=== PATIENT | female | born 1945 | race Caucasian/White ===

== ENCOUNTER 2016-08-11 02:10 | Inpatient (IN) ==
[2016-08-11] MEDS ORDERED: *HR* Morphine 2 MG/ML SYRINGE IVP PRN (05:00)
[2016-08-11] MEDS ORDERED: Naloxone 0.4 MG/ML INJ IVP PRN (05:00)
[2016-08-11] MEDS ORDERED: Ondansetron 4 MG/2 ML VIAL IVP PRN (05:00)
[2016-08-11] MEDS ORDERED: Acetaminophen 325 MG TABLET PO PRN (05:00)
--- NOTE | 2016-08-11 05:05 | Internal Med History&Physical ---
<Adrián Heath - Last Filed: 08/11/16 06:20> Date of Encounter: 08/11/16 Time of Encounter: 04:30 Assessment and Plan (1) Closed right hip fracture Current visit: No Status: Acute - Right hip CT showed acute mildly displaced right subcapital femur fracture. - Orthopedic surgery consult and appreciate further evaluation and intervention. - Per Dr. Phillips, plan to have surgery tomorrow. - Pain control with prn pain medications. - NPO after midnight. Qualifiers: Encounter type: initial encounter Qualified Code(s): S72.001A - Fracture of unspecified part of neck of right femur, initial encounter for closed fracture (2) UTI (urinary tract infection) Current visit: Yes Status: Acute - UA positive for nitrite, leukocyte esterase, WBC and bacteria. Urine culture pending. - Given the leukocytosis and possible upcoming surgery, will treat with IV ceftriaxone and later de-escalate based on culture result. Qualifiers: Urinary tract infection type: site unspecified Hematuria presence: without hematuria Qualified Code(s): N39.0 - Urinary tract infection, site not specified (3) Preoperative cardiovascular examination Current visit: Yes Status: Acute - Patient has no active cardiac conditions at this time and no significant ischemic change on EKG today. - Patients functional capacity is at least 4 METs as patient is able to perform ADLs and walk long distance without problem before the fall. - Patient does have clinical risk factors including history of CAD, diastolic CHF, CVA and DM. - Patient is considered as at least moderate risk for intermediate-risk surgery. (4) Hypokalemia Current visit: No Status: Acute - K at 3.1 in [facility]. - Will check magnesium. - Will give 40 meq of KCl PO for supplement. - Continue to monitor. (5) A-fib Current visit: Yes Status: Chronic - Currently in sinus rhythm with rate of 80s. - Continue Cardizem for rate control. - Will hold Xarelto for planned surgery tomorrow. Qualifiers: Atrial fibrillation type: unspecified Qualified Code(s): I48.91 - Unspecified atrial fibrillation (6) Diabetes Current visit: No Status: Chronic - Insulin sliding scale with routine glucose monitoring. 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 Qualifiers: Hypertension type: essential hypertension Qualified Code(s): I10 - Essential (primary) hypertension (8) Diastolic CHF Current visit: Yes Status: Chronic - LVEF 65-70% with moderate diastolic dysfunction per echo on 12/03/14. - Continue home dose Lasix. Qualifiers: Congestive heart failure chronicity: chronic Qualified Code(s): I50.32 - Chronic diastolic (congestive) heart failure Internal Medicine - H&P: HPI Chief complaint: Right hip pain Admitted From: Emergency Dept ([facility]) Plans for Post Hospital Care: Transfer Inp Rehab Fac History of present illness: Ms. 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 Patient presented to [facility] with complaint of right hip pain after a fall at 9:15 pm last night. Patient reports she tripped because of her pants are too long. Patient denies lightheadedness, loss of consciousness, chest pain/discomfort or hitting her head. Patient reports constant right hip pain since the fall and it' s aggravated by movement. Patient is unable to stand or bear weight. Patient was active before the fall as she can walk long distance and perform daily activities of living without problem. Patient is full code. In [facility] ED, patient is noted to have leukocytosis of 16.7. Right hip CT showed acute mildly displaced right subcapital femur fracture without displacement. ED physician discussed the case with Dr. Phillips of [facility] who recommends transfer to [facility] for further evaluation and management. Past Med Surg Social Fam HX - Past Medical History Medical history: arthritis, asthma, atrial fibrillation, cancer, CHF, COPD, coronary artery disease, CVA, diabetes, GERD, hyperlipidemia, hypertension, renal disease, thyroid disease Psychiatric history: anxiety, depression - Past Surgical History Surgical History: cataract, colostomy, sinus surgery, thyroidectomy - Social History Smoking Status: Never smoker Smokeless Tobacco Status: No Alcohol use: none Drug use: none - Family History Brother Adopted: No Family Member Ethnicity: Non- Living Status: Hx Family Cardiac Disorders: Yes Mother Living Status: Hx Family Cardiac Disorders: Yes (HTN) Hx Family Endocrine Disorder: Yes (DM) Internal Medicine - H&P: Meds Ferrous Sulfate 325 mg PO DAILY 11/15/14 [History] Furosemide [Lasix] 20 mg PO DAILY 11/15/14 [History] Insulin NPH Hum/Reg Insulin Hm [Novolin 70-30 100 Unit/ml Vial] 20 unit SQ BID PRN 11/15/14 [History] Montelukast Sodium 10 mg PO HS 11/15/14 [History] Potassium Chloride 10 meq PO BID 11/15/14 [History] Atenolol [Tenormin] 25 mg PO BID #60 tablet 12/06/14 [Rx] Diltiazem CD (24hr) [Cardizem CD] 120 mg PO DAILY 06/02/15 [History] Tiotropium Una [Spiriva Respimat] 2.5 mg IH DAILY 06/02/15 [History] Fluticasone Propionate Nasal [Flonase] 1 spray NS BID 04/14/16 [History] Gabapentin [Neurontin] 600 mg PO BID 04/14/16 [History] Levothyroxine [Synthroid] 88 mcg PO DAILY 04/14/16 [History] Pravastatin Sodium [Pravachol] 20 mg PO DAILY 04/14/16 [History] Ergocalciferol (VITAMIN D2) [Vitamin D2] 50,000 unit PO QWEEK 07/15/16 [History] Meloxicam 15 mg PO DAILY 07/15/16 [History] Rivaroxaban [Xarelto] 20 mg PO DAILY 07/15/16 [History] Amitriptyline [Elavil] 25 mg PO HS 08/11/16 [History] Clopidogrel [Plavix] 75 mg PO DAILY 08/11/16 [History] Allergies No Known Allergies Allergy (Verified 07/15/16 11:09) All Systems PM: A 10-system review of systems was performed and is negative for pertinent findings except as documented above in the HPI. - Constitutional Constitutional: no anorexia, no chills, no fever(s), no weight gain, no weight loss - EENT Eyes: no change in vision Ears: no decreased hearing Nose, mouth and throat: no dysphagia, no odynophagia - Cardiovascular Cardiovascular ROS IM: palpitations (occasionally, from A-fib), no chest pain, no diaphoresis, no syncope - Respiratory Respiratory: dyspnea (chronic, from COPD), no cough - Gastrointestinal Gastrointestinal: no abdominal pain, no diarrhea, no hematochezia, no melena, no nausea, no vomiting - Genitourinary Genitourinary: no difficulty urinating, no dysuria, no hematuria - Musculoskeletal Musculoskeletal ROS IM: as per HPI, arthralgias (left shoulder arthritis and right hip pain) - Integumentary Integumentary IM: no pruritus, no rash - Neurological Neurological ROS: numbness (Chronic bilateral feet.), no focal weakness - Hematologic/Lymphatic Hematologic/Lymphatic: no easy bleeding, no easy bruising - Constitutional Vitals: Temp Pulse Resp BP Pulse Ox 98.0 F 86 16 180/101 96 08/11/16 03:34 08/11/16 03:34 08/11/16 03:34 08/11/16 03:34 08/11/16 03:34 General appearance: Present: cooperative, A&O X 3, no acute distress, answers questions appropriately - Head Head exam: Present: atraumatic, normocephalic - Eye Eye exam: Present: EOMI, PERRL, conjuntiva pink, sclera anicteric - Neck Neck exam general surgery: Present: supple, trachea midline. Absent: lymphadenopathy - Respiratory Respiratory exam: Present: CTAB. Absent: accessory muscle use, rales, rhonchi, wheezes - Cardiovascular Cardiovascular exam: Present: RRR, +S1, +S2. Absent: diastolic murmur, gallop, rubs, systolic murmur - GI/Abdominal GI/Abdominal exam: Present: normal bowel sounds, soft, no peritoneal signs. Absent: distended, tenderness - Extremities Exam Extremities exam: Present: warm, radial pulses palpable and symetrical. Absent : calf tenderness, cyanotic, pedal edema Additional comments: Right hip tenderness to palpation and move. - Neurological Exam Neurological exam: Present: CN II-XII intact, oriented X3, no focal deficits. Absent: pronater drift, facial droop, speech deficit - Skin Skin exam: Present: dry, erythema (Right epigastric area, patient states it's a tick bite 3 days ago.), intact, warm Internal Med - H&P Results - EKG Data -: EKG Interpreted by Myself EKG shows normal: sinus rhythm Rate: normal - EKG Data Prior EKG available for review: yes When compared to previous EKG: there is no significant change <Jordon Holly - Last Filed: 08/11/16 08:31> Date of Encounter: 08/11/16 Internal Medicine - H&P: HPI History of present illness: Ms. Celaya is a 71 year old female All Systems PM: A 10-system review of systems was performed and is negative for pertinent findings except as documented above in the HPI. - Constitutional Vitals: Temp Pulse Resp BP Pulse Ox 97.9 F 73 14 173/88 96 08/11/16 06:52 08/11/16 06:52 08/11/16 06:52 08/11/16 06:52 08/11/16 06:52 - Attending Attestation I performed history and physical examination of the patient and discussed management with the Resident. I reviewed the Residents note and agree with documented findings and plan of care. 71 Y/F with h/o COPD, DM, diastolic CHF, CAD, CVA, A fib on xarelto tripped and had a fall last night and reports pain in the right hip (constant and worse with movement). She was evaluated in the ER at [facility] and was noted to have displaced right hip fracture. O/E: No acute distress at the time of my evaluation. Cardiac regular rate and rhythm. Lungs clear to auscultation. Right hip tenderness present. EKG personally reviewed by me shows sinus rhythm, with no acute ST-T changes. No significant change from the EKG from june 2016. UA is positive for nitrite and leucocyte esterase. CT of right hip showed acute mildly displaced right subcapital femur fracture without dislocation. CXR showed no acute abnormality A/P: Right hip fracture: Orthopedic consult. Pain relief. Cardiology consult for pre-surgical evaluation. UTI: Start ceftriaxone
[2016-08-11] MEDS ORDERED: Dextrose Gel 15 GM PO PRN ×2 (06:32)
[2016-08-11] MEDS ORDERED: D5% in Water 1,000 ML IVC PRN (06:32)
[2016-08-11] MEDS ORDERED: *HR* Dextrose 50 % in Water (Syg) 50 ML SYRINGE IVP PRN (06:32)
[2016-08-11 07:35] LABS: Magnesium 1.8 mg/dL (1.6-2.6); Phosphorous 3.3 mg/dL (2.3-4.7)
[2016-08-11] MEDS: Gabapentin 300 MG CAPSULE PO SCH ×2 (08:07→21:26)
[2016-08-11] MEDS: Diltiazem CD (24hr) 120 MG CAPSULE PO SCH (08:07)
[2016-08-11] MEDS: Furosemide 20 MG TABLET PO SCH (08:07)
[2016-08-11] MEDS: *HR* HYDROcodone/Acet 5/325 mg TABLET PO PRN ×3 (08:13→21:26)
[2016-08-11] MEDS: Insulin LISPRO 300 UNITS/3 ML VIAL SQ SCH ×3 (08:15→16:52)
[2016-08-11] MEDS ORDERED: Losartan/HCTZ 50-12.5 TABLET PO SCH (09:15)
--- NOTE | 2016-08-11 09:45 | Cardiology Consult Note ---
<Bruce Charles - Last Filed: 08/11/16 11:19> Date of Encounter: 08/11/16 Time of Encounter: 09:29 Assessment and Plan (1) Preoperative cardiovascular examination Current Visit: Yes Status: Acute Patient is a 71 year old female with history of CAD, paroxysmal afib on Cardizem and Xarelto, moderate diastolic CHF, COPD, history of CVA, type II diabetes, hypertension, hyperlipidemia, and former tobacco use who was transferred to [facility] from [facility] for Right hip fracture. EKG revealed normal sinus rhythm, rate 86, no st elevations, depressions, or t wave inversions. CXR revealed no acute cardiopulmonary process. Echo 12/03/2014 revealed normal LV systolic function, LVEF 65-70%, small LV cavity, moderate asymmetric septal hypertrophy with no evidence of LVOT obstruction, moderate LV diastolic dysfunction, normal RV structure and function , mildly dilated LA, no significant valvular dysfunction or evidence of pulmonary hypertension. Nuclear Stress 03/21/13 revealed mild perfusion defect at trest in the apical inferior and mid inferor [place] that improves with stress, consistent with artifact, EF 70%. LHC 06/04/2013 revealed severe one vessel CA, LV normal and EF 65%. 60% stenosis in proximal LAD, 40% stenosis in mid LAD, 85% stenosis in distal LAD. Vitals: Temp 97.9, Pulse 73, Resp 14, bp 173/88, 96% on room air. PT 12.5, INR 1.2 Based on history, patient's functional capacity is at least 4 METs. Requires walker motion and time study teacher. Will develop mild shortness of breath when pushing full shopping cart for about 30 minutes. No problems with ADLs. No acute cardio process at this time. No complaints of chest pain, pressure, palpitations, or shortness of breath during this visit. Echo ordered. Hold plavix and xarelto, Heparin sq q8h for anticoagulation due to elevated stroke risk with GAMALIEL-VASC = 7. (2) Closed right hip fracture Current Visit: Yes Status: Acute Right Hip CT revealed acute mildly displaced right subcapital femur fracture. Per Dr. Phillips, plan for surgery tomorrow, last case of the day. Continue per management of Hospitalist and Orthopedic Surgery. Qualifiers: Encounter type: initial encounter Qualified Code(s): S72.001A - Fracture of unspecified part of neck of right femur, initial encounter for closed fracture (3) CAD (coronary artery disease) Current Visit: Yes Status: Chronic History of CAD. Nuclear Stress 03/21/13 revealed mild perfusion defect at trest in the apical inferior and mid inferor monta[place] that improves with stress, consistent with artifact, EF 70%. [facility] 06/04/2013 revealed severe one vessel CA, LV normal and EF 65%. 60% stenosis in proximal LAD, 40% stenosis in mid LAD, 85% stenosis in distal LAD. Continue per plan of Hospitalist. Qualifiers: Coronary Disease-Associated Artery/Lesion type: [place] artery [place] vs. transplanted heart: osage heart Associated angina: without angina Qualified Code(s): I25.10 - Atherosclerotic heart disease of [place] coronary artery without angina pectoris (4) Diastolic CHF Current Visit: Yes Status: Chronic History of Diastolic CHF Echo 12/03/2014 revealed normal LV systolic function, LVEF 65-70%, small LV cavity, moderate asymmetric septal hypertrophy with no evidence of LVOT obstruction, moderate LV diastolic dysfunction, normal RV structure and function , mildly dilated LA, no significant valvular dysfunction or evidence of pulmonary hypertension. No acute concern, patient currently euvolemic. Repeat Echo ordered. Continue home medication for chronic disease management. Lasix 20mg qd Qualifiers: Congestive heart failure chronicity: chronic Qualified Code(s): I50.32 - Chronic diastolic (congestive) heart failure (5) Paroxysmal atrial fibrillation Current Visit: Yes Status: Chronic History of paroxysmal afib on Cardizem and Xarelto GAMALIEL-VASC = 7 Reports taking Xarelto in the AM, last dose 08/10/16 morning. Currently normal sinus. Continue Cardizem CD 120mg qd. Hold Xarelto 20mg qd. Start Heparin sq q8h. Continue telemetry monitoring. (6) Hypertension Current Visit: Yes Status: Chronic History of hypertension. Bp 158-180/88-101, pulse 73-86. Resume home medications for chronic disease management. Losartan-Hctz 50/12.5 qd. Qualifiers: Hypertension type: essential hypertension Qualified Code(s): I10 - Essential (primary) hypertension (7) Hyperlipidemia Current Visit: Yes Status: Chronic History of hyperlipidemia on pravastatin. Continue per plan of Hospitalist. Qualifiers: Hyperlipidemia type: unspecified Qualified Code(s): E78.5 - Hyperlipidemia , unspecified (8) COPD (chronic obstructive pulmonary disease) Current Visit: Yes Status: Chronic History of COPD, no home oxygen. No acute exacerbation, satting 96% on room air. Continue per plan of Hospitalist. Qualifiers: COPD type: unspecified COPD Qualified Code(s): J44.9 - Chronic obstructive pulmonary disease, unspecified (9) Type II diabetes mellitus Current Visit: Yes Status: Chronic History of type II diabetes, uncontrolled, on residential insulin. Glucose elevated 183. Continue per plan of Hospitalist. 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 Continue per plan of Hospitalist. Qualifiers: Esophagitis presence: esophagitis presence not specified Qualified Code(s) : K21.9 - Gastro-esophageal reflux disease without esophagitis (11) Hypokalemia Current Visit: Yes Status: Acute Hypokalemia, Potassium 3.1 Magnesium 1.8 Continue per plan of hospitalist. (12) UTI (urinary tract infection) Current Visit: Yes Status: Acute Asymptomatic UTI. Elevated WBC 16.7 Continue per plan of hospitalist. Qualifiers: Urinary tract infection type: site unspecified Hematuria presence: without hematuria Qualified Code(s): N39.0 - Urinary tract infection, site not specified (13) History of CVA with residual deficit Current Visit: Yes Status: Chronic History of CVA in 1994 with reported residual deficits of left upper extremity weakness and decreased coordination. Hold plavix. 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 Discussion w patient/family: The assessment and plan as outlined above was discussed with the patient and/or family members who expressed understanding and agreement. All questions were answered. Thank you for involving us in the care of your patient. Please call with any questions. History of Present Illness Consult date: 08/11/16 Requesting physician: Jordon Holly Consult reason: Preoperative Eval, Right hip fracture Chief complaint: Right hip fracture History of present illness: Ms. 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 Patient denied headaches, lightheadedness, dizziness, loss of consciousness, chest pain or pressure, palpitations, or shortness of breath prior to fall. Patient was unable to stand and bear weight after fall. Patient denies hitting head during fall. Before falling the patient reports using her walker motion and time study teacher and is able to walk long distances without chest pain, pressure, palpitations, or shortness of breath. Patient reports she can push an empty shopping cart without troubles, but reports mild shortness of breath with a full shopping cart during her shopping trips lasting about 30 minutes. Patient reports she believe she can walk up and down a flight of stairs, but has not tried recently because she was told to be cautious and avoid falling. Patient reports she can perform activities of daily living including cleaning dishes, going to the bathroom, and retrieving mail without problems or symptoms. Patient reports doing well overnight, pain well controlled unless she moves her right hip/leg. Patient denies fevers, chills, sweats, changes in vision or hearing, headaches, lightheadedness, dizziness, nausea, vomiting, chest pain or pressure, palpitations, shortness of breath, abdominal pain, changes in bowels or bladder, dysuria, hematuria, new weakness, or loss of sensation overnight. Cardiology was consulted for preoperative evaluation of patient prior to scheduled surgery per Dr. Phillips tomorrow. Past Med Surg Social Fam HX - Past Medical History Medical history: arthritis, asthma, atrial fibrillation (on xarelto and cardizem ), cancer (tracheal cancer, colon cancer s/p resection), CHF (11/2014 moderate diastolic dysfunction, EF 65-70%), COPD (no home oxygen), coronary artery disease (s/p [facility] 2013, EF 65%), CVA (1994, left sided upper extremity weakness and decreased coordination. on plavix), diabetes (exterminator helper termite insulin), GERD, hyperlipidemia, hypertension, renal disease (resolved CKD stage 3), thyroid disease (hypothyroidism) Psychiatric history: anxiety, depression - Past Surgical History Surgical History: cancer surgery, cataract, colectomy, sinus surgery, thyroidectomy - Social History Smoking Status: Former smoker (> 10 years) Smokeless Tobacco Status: No Alcohol use: none Drug use: none Occupational status: retired Current living situation: Home - Independent Activity Level: Uses cane/walker Recent Out of Country Travel Within the Last 8 Weeks: No Exposure or Possible Exposure to Illness During Travel: No - Family History Mother Living Status: Hx Family Cardiac Disorders: Yes (HTN) Hx Family Endocrine Disorder: Yes (DM) Brother Adopted: No Family Member Ethnicity: Non- Living Status: Hx Family Cardiac Disorders: Yes Medications and Allergies Ferrous Sulfate 325 mg PO DAILY 11/15/14 [History] Furosemide [Lasix] 20 mg PO DAILY 11/15/14 [History] Insulin NPH Hum/Reg Insulin Hm [Novolin 70-30 100 Unit/ml Vial] 20 unit SQ BID PRN 11/15/14 [History] Montelukast Sodium 10 mg PO HS 11/15/14 [History] Potassium Chloride 10 meq PO BID 11/15/14 [History] Atenolol [Tenormin] 25 mg PO BID #60 tablet 12/06/14 [Rx] Diltiazem CD (24hr) [Cardizem CD] 120 mg PO DAILY 06/02/15 [History] Tiotropium [place] [Spiriva Respimat] 2.5 mg IH DAILY 06/02/15 [History] Fluticasone Propionate Nasal [Flonase] 1 spray NS BID 04/14/16 [History] Gabapentin [Neurontin] 600 mg PO BID 04/14/16 [History] Levothyroxine [Synthroid] 88 mcg PO DAILY 04/14/16 [History] Pravastatin Sodium [Pravachol] 20 mg PO DAILY 04/14/16 [History] Ergocalciferol (VITAMIN D2) [Vitamin D2] 50,000 unit PO QWEEK 07/15/16 [History] Meloxicam 15 mg PO DAILY 07/15/16 [History] Rivaroxaban [Xarelto] 20 mg PO DAILY 07/15/16 [History] Amitriptyline [Elavil] 25 mg PO HS 08/11/16 [History] Clopidogrel [Plavix] 75 mg PO DAILY 08/11/16 [History] Allergies No Known Allergies Allergy (Verified 07/15/16 11:09) All Systems Review: A 10-system review of systems was performed and is negative for pertinent findings except as documented above in the HPI. - Constitutional Constitutional: no chills, no fever(s), no frequent falls, no headache(s), no night sweats, no weakness, no weight gain, no weight loss - EENT Eyes: no blurred vision, no loss of vision Nose, mouth and throat: no dysphagia, no epistaxis, no sore throat, no throat swelling - Cardiovascular Cardiovascular: as per HPI, dyspnea on exertion, no chest pain at rest, no chest pain with exertion, no diaphoresis, no dyspnea at rest, no radiating jaw, neck or arm pain, no leg edema, no lightheadedness, no palpitations, no syncope - Respiratory Respiratory: dyspnea, no cough, no wheezing - Gastrointestinal Gastrointestinal: no abdominal pain, no constipation, no diarrhea, no dysphagia , no nausea - Genitourinary Genitourinary: no dysuria, no hematuria - Musculoskeletal Musculoskeletal: no abnormal gait - Integumentary Integumentary: no rash, no unusual bruising - Neurological Neurological: no abnormal speech, no dizziness, no focal weakness, no loss of vision, no memory loss, no numbness, no syncope, no tingling Physical Examination Vital Signs, Last 4 Hours Temp Pulse Resp BP Pulse Ox 08/11/16 06:52 97.9 F 73 14 173/88 96 General: Conversant, No Apparent Distress HEENT: Atraumatic, Normocephaly, Mucus Membranes Moist Neck: No JVD, Normal carotid pulses Cardiac: Reg Rate and Rhythm, Other (grade 3 systolic murmur upper right sternal border) Lungs: Normal Breath Sounds, No Wheeze, Rales, Rhonchi Neuro: Alert and responsive, No focal deficits noted Abdomen: Soft, Non-Tender Skin: No rashes noted on visualized skin Musculoskeletal: No Chest Wall Tenderness Extremities: No Clubbing, No Cyanosis, No Edema, Normal Pulses, Other (right lower extremity short/externally rotated, pulses equal bilaterally, normal perfusion, warm and dry.) Results Lab Results 08/11/16 07:15 Magnesium 1.8 Consult Discharge Plan - Plan Referrals: Bella Turk CNP [Primary Care Provider] - <Viridiana Aguilera - Last Filed: 08/11/16 14:41> Date of Encounter: 08/11/16 Assessment and Plan Discussion w patient/family: The assessment and plan as outlined above was discussed with the patient and/or family members who expressed understanding and agreement. All questions were answered. Thank you for involving us in the care of your patient. Please call with any questions. History of Present Illness History of present illness: Ms. Celaya is a 71 year old female All Systems Review: A 10-system review of systems was performed and is negative for pertinent findings except as documented above in the HPI. Physical Examination Vital Signs, Last 4 Hours Temp Pulse Resp BP Pulse Ox 08/11/16 11:02 97.9 F 66 16 137/70 93 08/11/16 10:35 152/73 Results Lab Results 08/11/16 07:15 Magnesium 1.8 - Attending Attestation I examined this patient and my medical decision-making was reviewed with the PLANNER/SCHEDULER/PA/Advanced Practice Nurse/Resident Physician. I agree with the documented findings, disposition and treatment plan. Ms. Celaya is known to me from the outpatient Cardiology setting. She was last seen in the office 07/23/2015 and is being followed for CAD and PAF. She missed her follow up with us because it is difficult for her to get a ride but she also reports that she didn't have any new cardiac complaints over the past year. She denies chest pain and admits to fair functional capacity. Unfortunately, she presented to the hospital after sustaining a mechanical fall by tripping. She denies loss of consciousness. She also denies recent palpitations. We have been asked to evaluate the patient pre-procedurally. I recommend performing an echo for evaluation of structure/function for risk stratification. Prior assessment in 2014 demonstrating normal LVEF. Otherwise she does not warrant an ischemic evaluation. However, given her high risk of CVA (CHADSVASC 7) in setting of PAF, we have recommended bridging anticoagulation with heparin while off of xarelto.
--- NOTE | 2016-08-11 10:07 | Orthopedic Consult Note ---
Date of Encounter: 08/11/16 Time of Encounter: 01:00 Assessment and Plan (1) Closed right hip fracture Current Visit: Yes Status: Acute Planned Right Hip Hemiarthroplasty tomorrow with . Consent was signed this morning. I reviewed this with the family and the patient. All questions were addressed and answered. NPO at midnight. NWB. Continue ABX for UTI. Echo done today, awaiting cardio to clear. Qualifiers: Encounter type: initial encounter Qualified Code(s): S72.001A - Fracture of unspecified part of neck of right femur, initial encounter for closed fracture (2) UTI (urinary tract infection) Current Visit: Yes Status: Acute Qualifiers: Urinary tract infection type: site unspecified Hematuria presence: without hematuria Qualified Code(s): N39.0 - Urinary tract infection, site not specified History of Present Illness Chief complaint: Fall HPI: Ms. 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 Patient presented to [place] ED c/o right hip pain after a mechanical fall last night. Patient denies lightheadedness, loss of consciousness, chest pain/ discomfort or hitting her head. Patient reports constant right hip pain since the fall, worse with movement; unable or bear weight. Denies N/T, radiation of pain. Knee pain not noted. Patient was active before the fall as she can walk long distance and perform daily activities of living without problem. In [place] ED, patient is noted to have leukocytosis of 16.7. Right hip CT showed acute mildly displaced right subcapital femur fracture without displacement. Past Med Surg Social Fam HX - Past Medical History Medical history: arthritis, asthma, atrial fibrillation (on xarelto and cardizem ), cancer (tracheal cancer, colon cancer s/p resection), CHF (11/2014 moderate diastolic dysfunction, EF 65-70%), COPD (no home oxygen), coronary artery disease (s/p [facility] 2013, EF 65%), CVA (1994, left sided upper extremity weakness and decreased coordination. on plavix), diabetes (alf insulin), GERD, hyperlipidemia, hypertension, renal disease (resolved CKD stage 3), thyroid disease (hypothyroidism) Psychiatric history: anxiety, depression - Past Surgical History Surgical History: cancer surgery, cataract, colectomy, sinus surgery, thyroidectomy - Social History Smoking Status: Former smoker (> 10 years) Smokeless Tobacco Status: No Alcohol use: none Drug use: none - Family History Mother Living Status: Hx Family Cardiac Disorders: Yes (HTN) Hx Family Endocrine Disorder: Yes (DM) Brother Adopted: No Family Member Ethnicity: Non- Living Status: Hx Family Cardiac Disorders: Yes Medications and Allergies Ferrous Sulfate 325 mg PO DAILY 11/15/14 [History] Furosemide [Lasix] 20 mg PO DAILY 11/15/14 [History] Insulin NPH Hum/Reg Insulin Hm [Novolin 70-30 100 Unit/ml Vial] 20 unit SQ BID PRN 11/15/14 [History] Montelukast Sodium 10 mg PO HS 11/15/14 [History] Potassium Chloride 10 meq PO BID 11/15/14 [History] Atenolol [Tenormin] 25 mg PO BID #60 tablet 12/06/14 [Rx] Diltiazem CD (24hr) [Cardizem CD] 120 mg PO DAILY 06/02/15 [History] Tiotropium [place] [Spiriva Respimat] 2.5 mg IH DAILY 06/02/15 [History] Fluticasone Propionate Nasal [Flonase] 1 spray NS BID 04/14/16 [History] Gabapentin [Neurontin] 600 mg PO BID 04/14/16 [History] Levothyroxine [Synthroid] 88 mcg PO DAILY 04/14/16 [History] Pravastatin Sodium [Pravachol] 20 mg PO DAILY 04/14/16 [History] Ergocalciferol (VITAMIN D2) [Vitamin D2] 50,000 unit PO QWEEK 07/15/16 [History] Meloxicam 15 mg PO DAILY 07/15/16 [History] Rivaroxaban [Xarelto] 20 mg PO DAILY 07/15/16 [History] Amitriptyline [Elavil] 25 mg PO HS 08/11/16 [History] Cholecalciferol (Vitamin D3) [Vitamin D] 50,000 unit PO QWEEK 08/11/16 [History] Clopidogrel [Plavix] 75 mg PO DAILY 08/11/16 [History] Cyclobenzaprine HCl 5 mg PO DAILY 08/11/16 [History] Spiriva 2.5 mcg IH BID 08/11/16 [History] Allergies No Known Allergies Allergy (Verified 07/15/16 11:09) All Systems Reviewed: A 10-system review of systems was performed and is negative for pertinent findings except as documented above in the HPI. - Constitutional Constitutional: as per HPI - Cardiovascular Cardiovascular: as per HPI - Respiratory Respiratory: as per HPI - Musculoskeletal Musculoskeletal: abnormal gait, limited range of motion, radiating pain into limb, no back pain, no numbness Physical Exam - Constitutional Vitals: Temp Pulse Resp BP Pulse Ox 97.9 F 73 14 173/88 96 08/11/16 06:52 08/11/16 06:52 08/11/16 06:52 08/11/16 06:52 08/11/16 06:52 - Fracture right hip Appearance: swelling, other Compartments: soft Distal extremity neurovascularly intact: Yes Proximal joint involvement: No Distal joint involvement: No Results - Labs Labs: All other labs normal. - Diagnostic results Hip x-ray: report reviewed, image reviewed Consult Discharge Plan - Plan Referrals: Bella Turk CNP [Primary Care Provider] -
--- NOTE | 2016-08-11 10:39 | Electrocardiograph Report ---
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
[2016-08-11] MEDS ORDERED: *HR* Heparin 5,000 UNIT/ML VIAL SQ SCH (14:00)
--- NOTE | 2016-08-11 15:25 | Internal Med Progress Note ---
<SudhakarMargaret Cherellerodney Holliday - Last Filed: 08/11/16 15:22> Date of Encounter: 08/11/16 Time of Encounter: 09:30 - Assessment and plan (1) Closed right hip fracture Current Visit: Yes Status: Acute Assessment and plan: Right hip CT demonstrates mildly displaced right subcapital femur fracture without dislocation Patient is hemodynamically stable with no signs of hematoma or ecchymosis on exam Dr. Phillips has been consulted and plans to perform surgery tomorrow Continue pain management NPO after midnight Qualifiers: Encounter type: initial encounter Qualified Code(s): S72.001A - Fracture of unspecified part of neck of right femur, initial encounter for closed fracture (2) UTI (urinary tract infection) Current Visit: Yes Status: Acute Assessment and plan: UA with presence of nitrite, leukocyte esterase, WBC, bacteria WBC 16.7 upon presentation to hospital Urine culture pending Previous urine culture on 05/21/16 was positive for E. coli with resistence to Ampicillin Continue Rocephin (day#1) Qualifiers: Urinary tract infection type: site unspecified Hematuria presence: without hematuria Qualified Code(s): N39.0 - Urinary tract infection, site not specified (3) A-fib Current Visit: Yes Status: Chronic Assessment and plan: History of Paroxysmal afib CHADs VASC = 7 Continue Diltiazem Hold Rivaroxaban until after surgery Qualifiers: Atrial fibrillation type: unspecified Qualified Code(s): I48.91 - Unspecified atrial fibrillation (4) CAD (coronary artery disease) Current Visit: Yes Status: Chronic Assessment and plan: Patient begin evaluated by cardiology for surgical clearance Hold plavix Qualifiers: Coronary Disease-Associated Artery/Lesion type: ione artery [place] vs. 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 of insulin (6) Hypertension Current Visit: Yes Status: Chronic Assessment and plan: Stable at this time Continue home dose atenolol Continue to monitor Qualifiers: Hypertension type: essential hypertension Qualified Code(s): I10 - Essential (primary) hypertension (7) COPD (chronic obstructive pulmonary disease) Current Visit: Yes Status: Chronic Assessment and plan: Continue home dose of Spiriva and Montelukast O2 supplementation as needed Qualifiers: COPD type: unspecified COPD Qualified Code(s): J44.9 - Chronic obstructive pulmonary disease, unspecified (8) Diastolic CHF Current Visit: Yes Status: Chronic Assessment and plan: Patient is euvolemic on exam Continue Lasix 20mg po daily Qualifiers: Congestive heart failure chronicity: chronic Qualified Code(s): I50.32 - Chronic diastolic (congestive) heart failure (9) Hypokalemia Current Visit: Yes Status: Acute Assessment and plan: Repleted today Continue to monitor (10) DVT prophylaxis Current Visit: Yes Status: Acute Assessment and plan: Heparin 5,000u Q8HR - Subjective Interval history: Patient states that she is doing well this morning. Admits right hip pain with any movement. She states that she had a fall due to the fact that her "pants fell down" when she was walking. Patient admits dyspnea that is chronic due to COPD. Denies any other complaints at this time. - Constitutional Vitals: Temp Pulse Resp BP Pulse Ox 97.9 F 66 16 137/70 93 08/11/16 11:02 08/11/16 11:02 08/11/16 11:02 08/11/16 11:02 08/11/16 11:02 General appearance: Present: cooperative, A&O X 3, no acute distress, answers questions appropriately - Head Head exam: Present: atraumatic, normocephalic - Eye Eye exam: Present: PERRL, sclera anicteric. Absent: conjuntiva pink Additional comments: pale conjunctiva - Neck Neck exam general surgery: Present: thyromegaly, supple, trachea midline. Absent: lymphadenopathy - Respiratory Respiratory exam: Present: CTAB. Absent: accessory muscle use, rales, rhonchi, wheezes - Cardiovascular Cardiovascular exam: Present: irregular rhythm, +S1, +S2. Absent: diastolic murmur, gallop, rubs, systolic murmur - GI/Abdominal GI/Abdominal exam: Present: normal bowel sounds, soft, no peritoneal signs. Absent: distended, tenderness - Additional comments: Tovar in place with clear yellow urine - Extremities Exam Extremities exam: Present: normal capillary refill, warm, radial pulses palpable and symetrical. Absent: calf tenderness, cyanotic, pedal edema Additional comments: Swelling and tenderness to right lateral hip No evidence of ecchymosis or hematoma to right lateral or anterior leg - Neurological Exam Neurological exam: Present: CN II-XII intact, oriented X3, no focal deficits. Absent: facial droop, speech deficit - Skin Skin exam: Present: dry, intact Consult Discharge Plan - Plan Referrals: Bella Turk PUBLIC SPEAKER [Primary Care Provider] - <[email or web address] - Last Filed: 08/11/16 18:15> Date of Encounter: 08/11/16 - Constitutional Vitals: Temp Pulse Resp BP Pulse Ox 98.5 F 67 18 148/76 93 08/11/16 15:39 08/11/16 15:39 08/11/16 15:39 08/11/16 15:39 08/11/16 15:39 - Attending Attestation I examined this patient and my medical decision-making was reviewed with the Resident Physician, Dr De La Fuente. I agree with the documented findings, disposition and treatment plan as described except to the extent set forth below. Patient with a history of atrial fibrillation and diastolic heart failure, prior stroke, on anticoagulation, tripped and fell. She was diagnosed with a right hip fracture and UTI. On exam she is noted distress. Head is atraumatic pupils equal round and reactive to light. Heart auscultation reveals a regular S1-S2. Lungs are clear. Abdomen is soft and nontender. Right hip evaluation shows soft tissue edema no bruising. Tenderness to palpation. Plan: Blood pressure was elevated elevated this morning at 180/101. Likely secondary to pain. We will resume her atenolol. Increase dose if necessary. Pain control. Add IV hydralazine as needed for systolic blood pressure greater than 180. Obtain an echocardiogram and follow-up with cardiology regarding preoperative cardiovascular risk assessment. She has a CHADS-VASC score of 8 and therefore she has a very high risk for stroke which can be reduced with anticoagulation. She will be off her oral anticoagulant for surgery and therefore we will start her on heparin drip and titrate according to protocol. She is at high risk for morbidity mortality and complications due to IV heparin drip which requires intensive coagulation parameters monitoring for drug titration.
[2016-08-11] MEDS ORDERED: *HR* Heparin 5,000 UNIT/ML VIAL IVP ONE (16:10)
[2016-08-11] MEDS ORDERED: *HR* Heparin 5,000 UNIT/ML VIAL IVP PRN ×2 (16:10)
[2016-08-11] MEDS ORDERED: Heparin 25,000 UNIT/500 ML D5W 25,000 UNIT/500 ML MLS IVC SCH (16:15)
[2016-08-11] MEDS ORDERED: hydrALAZINE 10 MG TABLET PO PRN (16:21)
[2016-08-11 16:47] LABS: Thyroid Stimulating Hormone 1.025 mcIU/mL (0.350-4.840)
[2016-08-11] MEDS: TIOTROPIUM BROMIDE 2.5 MCG IH SCH (16:52)
--- NOTE | 2016-08-11 17:49 | ECHO - Doppler Report ---
Echocardiogram Name: Carmen Celaya Date of Study: 08/11/2016 Date: 1945 Ht: 63.0 in Medical Record#: [id number] Age: 71 Wt: 163.0 lb Gender: Female BSA: 1.77 Order #: [id number] Location: [facility] Room #: [facility] Reading Physician: Donnie Valdovinos MD, [facility] Paper Reel Operator: Barbara Cook Ordering Physician: Bruce Charles DO Primary Physician: Bella Turk CNP Indications: History of moderate diastolic CHF, Pre op evaluation Impressions: Normal LV systolic function, LVEF 65-70%. Mild-moderate asymmetric LV septal hypertrophy. No evidence of LVOT obstruction. Mild left ventricular diastolic dysfunction. Normal right ventricular size and function. No significant valvular dysfunction. No evidence of pulmonary hypertension. Left Ventricular Wall Motion: Rest Echo Findings All wall segments showed normal motion. Findings: Study Quality * Technically adequate exam. ECG Findings * Normal sinus rhythm. Left Ventricle * Normal LV systolic function, LVEF 65-70%. * Normal LV chamber size. * Mild-moderate asymmetric LV septal hypertrophy. No evidence of LVOT obstruction. * Mild left ventricular diastolic dysfunction. Right Ventricle * Normal right ventricular size and function. Left Atrium * Normal left atrial size. Right Atrium * Normal right atrial size. Aorta * Normally sized aortic root. Pericardium * There is no pericardial effusion present. IVC * The IVC is not dilated. Aortic Valve * Aortic valve not well visualized. Appears trileaflet with mild sclerosis. * No aortic stenosis. * No aortic regurgitation. Mitral Valve * Mild mitral annular calcification * No mitral stenosis. * Trace mitral regurgitation. Tricuspid Valve * Normal tricuspid valve structure. * No tricuspid stenosis. * Trace tricuspid regurgitation. * No evidence of pulmonary hypertension. Pulmonic Valve * Pulmonic valve not well visualized. * No pulmonic stenosis. * No pulmonic regurgitation. History Hypertension Diabetes Hypercholesteremia Family History of CAD History of CAD/PTCA Congestive Heart Failure 04/01/2013 a Previous Echo was performed. Measurements: BP: 148/ 76 2D Normal Values RVIDd: 3.40 cm IVSd: 1.30 cm 0.6 - 1.0 cm LVIDd: 3.80 cm 3.7 - 5.6 cm LVPWd: .90 cm 0.6 - 1.1 cm LVIDs: 2.30 cm 1.5 - 3.6 cm AO: 2.80 cm < 4.0 cm LA volume: 46 Mitral Valve Peak E:.93 m/sec Peak A:1.13 m/sec E/A Ratio:0.8 Tricuspid Valve TV Regurg Peak Grad: 29.00mmHg TV Regurg Peak Edson: 2.67m/sec Updated by Donnie Valdovinos MD, [facility] on 08/11/2016 5:42:57 PM electronically signed on 08/11/2016 5:43:28 PM with status of Final Wall Motion Mendes: 1=Normal, 2=Hypokinesis, 3=Akinesis, 4=Dyskinesis, 5=Aneurysmal, 6=Hyperkinetic, X=Not Visualized (Blank)=Missing
[2016-08-11 18:10] LABS: INR 1.1; Prothrombin Time 11.4 Seconds (9.4-12.1)
[2016-08-11 18:12] LABS: Activated Partial Thrombo Time 30.2 Seconds (26.0-36.0)
--- NOTE | 2016-08-11 19:09 | Anesthesia Evaluation PreOp ---
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 History: CVA (1994 - no residual) Other Medical History: Renal (Stage III), Diabetes Type II, Thyroid (Hypothyroid ), GERD Anesthesia History: No Prior Anesthetic Complications, Past Anesthesia ( Coledtomy, colostomy with take down, Peg Tube, Thyroidectomy, septoplasty, Bronchx2, Mixon's) : No Alcohol Use: none Drug use: none Medications and Allergies Ferrous Sulfate 325 mg PO DAILY 11/15/14 [History] Furosemide [Lasix] 20 mg PO DAILY 11/15/14 [History] Insulin NPH Hum/Reg Insulin Hm [Novolin 70-30 100 Unit/ml Vial] 20 unit SQ BID PRN 11/15/14 [History] Montelukast Sodium 10 mg PO HS 11/15/14 [History] Potassium Chloride 10 meq PO BID 11/15/14 [History] Atenolol [Tenormin] 25 mg PO BID #60 tablet 12/06/14 [Rx] Diltiazem CD (24hr) [Cardizem CD] 120 mg PO DAILY 06/02/15 [History] Tiotropium [place] [Spiriva Respimat] 2.5 mg IH DAILY 06/02/15 [History] Fluticasone Propionate Nasal [Flonase] 1 spray NS BID 04/14/16 [History] Gabapentin [Neurontin] 600 mg PO BID 04/14/16 [History] Levothyroxine [Synthroid] 88 mcg PO DAILY 04/14/16 [History] Pravastatin Sodium [Pravachol] 20 mg PO DAILY 04/14/16 [History] Ergocalciferol (VITAMIN D2) [Vitamin D2] 50,000 unit PO QWEEK 07/15/16 [History] Meloxicam 15 mg PO DAILY 07/15/16 [History] Rivaroxaban [Xarelto] 20 mg PO DAILY 07/15/16 [History] Amitriptyline [Elavil] 25 mg PO HS 08/11/16 [History] Cholecalciferol (Vitamin D3) [Vitamin D] 50,000 unit PO QWEEK 08/11/16 [History] Clopidogrel [Plavix] 75 mg PO DAILY 08/11/16 [History] Cyclobenzaprine HCl 5 mg PO DAILY 08/11/16 [History] Spiriva 2.5 mcg IH BID 08/11/16 [History] Allergies No Known Allergies Allergy (Verified 07/15/16 11:09) - Meds/Allergy Pre-op Review Medications Reviewed: Yes Allergies Reviewed: Yes Beta Blockers on Current Med List: Yes If Beta Blockers taken, Date/Time (Last Dose taken): last dose 08/11/2016 08:08 Anesthesia Results - Labs Echo 08/11/16LV diastolic Dysfunction EF-65-70% Mild LV diastolic dysfunction Laboratory Tests 08/11/16 08/11/16 08/11/16 01:13 01:13 17:37 WBC 16.7 H Hgb 14.4 Hct 44.1 Plt Count 301 INR 1.1 Sodium 140 Potassium 3.1 L Chloride 104 Carbon Dioxide 21 BUN 15 - Imaging EKG: image reviewed (SR, Poss Left Atrial Enlargement) Anesthesia Exam O2 Sat Height 1.6 m Weight 74.2 kg O2 Sat by Pulse Oximetry 93 O2 Sat by Pulse Oximetry 93 O2 Sat by Pulse Oximetry 96 O2 Sat by Pulse Oximetry 96 Vital Signs Temp Pulse Resp BP Pulse Ox 98.0 F 86 16 180/101 96 08/11/16 03:34 08/11/16 03:34 08/11/16 03:34 08/11/16 03:34 08/11/16 03:34 Vital Signs/O2 Sat, Most Current Temp Pulse Resp BP Pulse Ox 98.5 F 67 18 148/76 93 08/11/16 15:39 08/11/16 15:39 08/11/16 15:39 08/11/16 15:39 08/11/16 15:39 Height: 5'3'' Weight: 163# NPO (# of Hours): > 8 hrs Pain Scale: 0 Pain Scale Used: Numeric (1 - 10) - HEENT Pupil (Motor): Pupils equal, EOMI Mallampati: I Teeth: Edentulous Oral Opening: Greater than 3 - TETRYL SCREEN OPERATOR LOC: Oriented TETRYL SCREEN OPERATOR Motor: Normal RUE, Normal LUE, Normal RLE, Normal LLE, Normal Face TETRYL SCREEN OPERATOR Sensory: Normal: RUE, LUE, RLE, LLE, Face - Cardiac Rhythm: Regular Murmur: None JVD: No Carotid Bruit: No - Pulmonary Breath Sounds: bilateral Clear Respiratory Effort: Symmetrical Anesthesia Assess/Plan ASA Score: 3 Modified [place] Scale for Level of Consciousness: Cooperative, oriented, and tranquil Anesthetic Plan: General Autologous Blood: Yes Monitoring Plan: Standard Monitors Recovery Plan: PACU
[2016-08-11] MEDS ORDERED: Insulin LISPRO 300 UNITS/3 ML VIAL SQ SCH (21:00)
[2016-08-11] MEDS: Fluticasone Propionate Nasal 50 MCG/SPRAY BOTTLE NS SCH (21:25)
[2016-08-12 01:23] LABS: Basophils % 0.3 %; Eosinophils # 0.1 K/mcL (0.0-0.6); Eosinophils % 0.8 %; Hematocrit 38.8 % (35.3-44.9); Hemoglobin 12.7 g/dL (11.5-15.4); Immature Granulocytes % 0.4 % (0-4); Lymphocytes # 1.7 K/mcL (0.6-4.6); Lymphocytes % 14.3 %; Mean Corpuscular HGB Conc 32.7 g/dL (31.6-35.5); Mean Corpuscular Hemoglobin 26.5 pg (28.0-33.3); Monocytes % 8.5 %; Neutrophils # 8.9 K/mcL (1.6-8.9); Platelet Count 256 K/mcL (140-400); Red Blood Count 4.79 M/mcL (3.82-4.97); Red Cell Distribution Width 14.1 % (11.5-14.5); Segmented Neutrophils % 75.7 %
[2016-08-12 01:34] LABS: Calcium 9.1 mg/dL (8.6-10.8); Potassium 3.8 mEq/L (3.5-4.5)
[2016-08-12] MEDS: Insulin LISPRO 300 UNITS/3 ML VIAL SQ SCH ×4 (01:45→21:16)
[2016-08-12 02:06] LABS: Heparin anti-factor XA UFH 1.15 IU/mL (0.30-0.70)
--- NOTE | 2016-08-12 06:40 | Orthopedics Progress Note ---
Date of Encounter: 08/12/16 Time of Encounter: 06:39 Subjective Interval history: Patient was seen this morning doing well without complaints. Afebrile vital signs stable. Operative extremity: Concern for right foot drop, sensation intact. will fit with AFO until motor returns. Dressing clean dry and intact Calves nontender Assessment and plan: Continue with postoperative care Hematocrit 38 Objective Vital signs: Vital Signs Temp Pulse Resp BP Pulse Ox 08/12/16 01:02 97.8 F 67 16 130/69 93 08/11/16 21:15 98.0 F 68 16 136/70 94 08/11/16 15:39 98.5 F 67 18 148/76 93 08/11/16 11:02 97.9 F 66 16 137/70 93 08/11/16 10:35 152/73 08/11/16 06:52 97.9 F 73 14 173/88 96 Intake and Output 08/11/16 08/11/16 08/12/16 15:59 23:59 07:59 Intake Total 340 / 340 240 / 240 137 / 137 Output Total 1900 / 1900 Balance 340 / 340 -1660 / -1660 137 / 137 Intake: IV Fluids 100 / 100 137 / 137 Heparin 25,000 UNIT/500 137 / 137 ML D5W 25,000 unit In 500 ml @ 14 UNIT/KG/HR 20. 776 mls/hr IVC .Q24H ANDRES Rx#:[id number] Rocephin 1,000 MG In 100 / 100 Dextrose 5% (Minibag+) 100 ML 100 ML @ 200 mls/ hr IVPB Q24H ANDRES Rx#: [id number] Oral 240 / 240 240 / 240 Output: Catheter 1900 / 1900 Other: Meal Breakfast Dinner Percent of Meal Consumed 75% 50% Blood Glucose* 195 257 157 - Labs CBC & BMP: 08/12/16 01:15 08/12/16 01:15 Labs: Abnormal lab results WBC 11.8 K/mcL (4.3-11.1) H 08/12/16 01:15 MCV 81.0 fL (83.0-100.0) L 08/12/16 01:15 MCH 26.5 pg (28.0-33.3) L 08/12/16 01:15 APTT 176.0 Seconds (26.0-36.0) H* D 08/12/16 01:15 Heparin Anti-Xa, Unfract 1.15 IU/mL (0.30-0.70) H* 08/12/16 01:15 Creatinine 1.12 mg/dL (0.57-1.11) H 08/12/16 01:15 Est GFR ( Amer) 58 (> 60) L 08/12/16 01:15 Est GFR (Non-Af Amer) 48 (> 60) L 08/12/16 01:15 Glucose 133 mg/dL (70-99) H 08/12/16 01:15 POC Glucose 157 (58-89) H 08/12/16 05:59 - VTE Documentation of Mechanical Device: Venous foot pump, device Consult Discharge Plan - Plan Referrals: Bella Turk CNP [Primary Care Provider] -
--- NOTE | 2016-08-12 07:47 | Cardiology Progress Note ---
Addendum entered and electronically signed by Bruce Charles DO 10:39: (1) Preoperative cardiovascular examination Current Visit: Yes Status: Acute Patient is a 71 year old female with history of CAD, paroxysmal afib on Cardizem and Xarelto, moderate diastolic CHF, COPD, history of CVA, type II diabetes, hypertension, hyperlipidemia, and former tobacco use who was transferred to [facility] from [facility] for Right hip fracture. EKG revealed normal sinus rhythm, rate 86, no st elevations, depressions, or t wave inversions. CXR revealed no acute cardiopulmonary process. Echo 12/03/2014 revealed normal LV systolic function, LVEF 65-70%, small LV cavity, moderate asymmetric septal hypertrophy with no evidence of LVOT obstruction, moderate LV diastolic dysfunction, normal RV structure and function , mildly dilated LA, no significant valvular dysfunction or evidence of pulmonary hypertension. Nuclear Stress 03/21/13 revealed mild perfusion defect at trest in the apical inferior and mid inferor monta[place] that improves with stress, consistent with artifact, EF 70%. LHC 06/04/2013 revealed severe one vessel CA, LV normal and EF 65%. 60% stenosis in proximal LAD, 40% stenosis in mid LAD, 85% stenosis in distal LAD. Echo 08/11/16 revealed LVEF 65-70%, normal systolic function, mild-moderate asymmetric LV septal hypertrophy without evidence of LVOT obstruction, mild LV diastolic dysfunction, normal RV size and function, no significant valvular dysfunction, no pulmonary hypertension. Vitals: Temp 97.7, Pulse 56bpm, Resp 16, bp 12/78, 93% on room air. 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 Will develop mild shortness of breath when pushing full shopping cart for about 30 minutes. No problems with ADLs. No acute cardio process at this time. No complaints of chest pain, pressure, palpitations, or shortness of breath during this visit. Nuclear Stress Test ordered, if abnormal will proceed with a LHC. Continue heparin for anticoagulation due to elevated stroke risk with GAMALIEL-VASC = 7. Revised cardiac risk index = 2, Class III risk, 6.6% risk Resume Plavix and Xarelto prior to discharge unless determined otherwise by Hospitalist or Orthopedic Surgery. Original Note: <Bruce Charles - Last Filed: 08/12/16 09:09> Date of Encounter: 08/12/16 Time of Encounter: 07:45 Assessment and Plan (1) Preoperative cardiovascular examination Current Visit: Yes Status: Acute Patient is a 71 year old female with history of CAD, paroxysmal afib on Cardizem and Xarelto, moderate diastolic CHF, COPD, history of CVA, type II diabetes, hypertension, hyperlipidemia, and former tobacco use who was transferred to [facility] from [facility] for Right hip fracture. EKG revealed normal sinus rhythm, rate 86, no st elevations, depressions, or t wave inversions. CXR revealed no acute cardiopulmonary process. Echo 12/03/2014 revealed normal LV systolic function, LVEF 65-70%, small LV cavity, moderate asymmetric septal hypertrophy with no evidence of LVOT obstruction, moderate LV diastolic dysfunction, normal RV structure and function , mildly dilated LA, no significant valvular dysfunction or evidence of pulmonary hypertension. Nuclear Stress 03/21/13 revealed mild perfusion defect at trest in the apical inferior and mid inferor montaño that improves with stress, consistent with artifact, EF 70%. LHC 06/04/2013 revealed severe one vessel CA, LV normal and EF 65%. 60% stenosis in proximal LAD, 40% stenosis in mid LAD, 85% stenosis in distal LAD. Echo 08/11/16 revealed LVEF 65-70%, normal systolic function, mild-moderate asymmetric LV septal hypertrophy without evidence of LVOT obstruction, mild LV diastolic dysfunction, normal RV size and function, no significant valvular dysfunction, no pulmonary hypertension. Vitals: Temp 97.7, Pulse 56bpm, Resp 16, bp 12/78, 93% on room air. PT 11.4, INR 1.1, aPTT 176.0 Based on history, patient's functional capacity is at least 4 METs. 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 Will develop mild shortness of breath when pushing full shopping cart for about 30 minutes. No problems with ADLs. No acute cardio process at this time. No complaints of chest pain, pressure, palpitations, or shortness of breath during this visit. Continue heparin for anticoagulation due to elevated stroke risk with GAMALIEL-VASC = 7. Revised cardiac risk index = 2, Class III risk, 6.6% risk Patient cleared on Cardiology stand point for surgery. Resume Plavix and Xarelto prior to discharge unless determined otherwise by Hospitalist or Orthopedic Surgery. Cardio will sign off at this time. Please contact us with any questions. (2) Closed right hip fracture Current Visit: Yes Status: Inactive Right hip CT revealed acute mildly displaced right subcapital femur fracture. Per Dr. Phillips, plan for surgery later today. Continue per management of Hospitalist and Orthopedic Surgery. Qualifiers: Encounter type: initial encounter Qualified Code(s): S72.001A - Fracture of unspecified part of neck of right femur, initial encounter for closed fracture (3) CAD (coronary artery disease) Current Visit: Yes Status: Chronic History of CAD. Nuclear Stress 03/21/13 revealed mild perfusion defect at trest in the apical inferior and mid inferor montaño that improves with stress, consistent with artifact, EF 70%. LHC 06/04/2013 revealed severe one vessel CA, LV normal and EF 65%. 60% stenosis in proximal LAD, 40% stenosis in mid LAD, 85% stenosis in distal LAD. Continue per plan of Hospitalist. Qualifiers: Coronary Disease-Associated Artery/Lesion type: [place] artery [place] vs. transplanted heart: [place] heart Associated angina: without angina Qualified Code(s): I25.10 - Atherosclerotic heart disease of [place] coronary artery without angina pectoris (4) Diastolic CHF Current Visit: Yes Status: Chronic History of Diastolic CHF Echo 08/11/16 revealed LVEF 65-70%, normal systolic function, mild-moderate asymmetric LV septal hypertrophy without evidence of LVOT obstruction, mild LV diastolic dysfunction, normal RV size and function, no significant valvular dysfunction, no pulmonary hypertension. No acute concern, patient currently euvolemic. Repeat Echo ordered. Continue home medication for chronic disease management. Qualifiers: Congestive heart failure chronicity: chronic Qualified Code(s): I50.32 - Chronic diastolic (congestive) heart failure (5) Paroxysmal atrial fibrillation Current Visit: Yes Status: Chronic History of paroxysmal afib on Cardizem and Xarelto GAMALIEL-VASC = 7 Reports taking Xarelto in the AM, last dose 08/10/16 morning. Currently normal sinus. Continue Cardizem CD 120mg qd. Hold Xarelto 20mg qd. Continue heparin. Continue telemetry monitoring. (6) Hypertension Current Visit: Yes Status: Chronic History of hypertension. Bp 125-152/69-78, pulse 56-68 Continue per plan of Hospitalist. Hold losartan-hctz home med due to risk of perioperative kidney function. Continue Atenolol, Hydralazine prn. Resume home meds prior to discharge. Qualifiers: Hypertension type: essential hypertension Qualified Code(s): I10 - Essential (primary) hypertension (7) Hyperlipidemia Current Visit: Yes Status: Chronic History of hyperlipidemia on pravastatin. Continue per plan of Hospitalist. Qualifiers: Hyperlipidemia type: unspecified Qualified Code(s): E78.5 - Hyperlipidemia , unspecified (8) COPD (chronic obstructive pulmonary disease) Current Visit: Yes Status: Chronic History of COPD, no home oxygen. No acute exacerbation, satting 96% on room air. Continue per plan of Hospitalist. Qualifiers: COPD type: unspecified COPD Qualified Code(s): J44.9 - Chronic obstructive pulmonary disease, unspecified (9) Type II diabetes mellitus Current Visit: Yes Status: Chronic History of type II diabetes, uncontrolled, on care home insulin. Glucose elevated 133. Continue per plan of Hospitalist. Qualifiers: Diabetes mellitus complication status: with hyperglycemia Diabetes mellitus care home insulin use: with intermediate project manager use Qualified Code(s): E11.65 - Type 2 diabetes mellitus with hyperglycemia; Z79.4 - assisted (current) use of insulin (10) GERD (gastroesophageal reflux disease) Current Visit: Yes Status: Chronic History of GERD No complaints at this time. Continue per plan of Hospitalist. Qualifiers: Esophagitis presence: esophagitis presence not specified Qualified Code(s) : K21.9 - Gastro-esophageal reflux disease without esophagitis (11) Hypokalemia Current Visit: Yes Status: Acute Hypokalemia, Potassium 3.1 Magnesium 1.8 Continue per plan of hospitalist. (12) UTI (urinary tract infection) Current Visit: Yes Status: Acute Asymptomatic UTI. Elevated WBC down to 11.8 from 16.7 yesterday. Continue per plan of hospitalist. Qualifiers: Urinary tract infection type: site unspecified Hematuria presence: without hematuria Qualified Code(s): N39.0 - Urinary tract infection, site not specified (13) History of CVA with residual deficit Current Visit: Yes Status: Chronic History of CVA in 1994 with reported residual deficits of left upper extremity weakness and decreased coordination. Hold plavix. 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 Discussion w patient/family: The assessment and plan as outlined above was discussed with the patient and/or family members who expressed understanding and agreement. All questions were answered. Thank you for involving us in the care of your patient. Please call with any questions. Subjective Principal diagnosis: Right hip fracture, preop eval Interval history: Patient reports doing well overnight. Patient reports a little more difficulty moving her right foot as compared to yesterday, but ROM, sensation, and pulses appear intact and unchanged from yesterday. Patient denies fevers, chills, sweats, changes in vision or hearing, headaches, lightheadedness, dizziness, chest pain or pressure, shortness of breath, abdominal pain, changes in bowels or bladder, or loss of sensation. Objective Vital Signs, Last 4 Hours Temp Pulse Resp BP Pulse Ox 08/12/16 07:05 97.7 F 56 16 125/78 93 General: Conversant, No Apparent Distress HEENT: Atraumatic, Normocephaly, Mucus Membranes Moist Neck: No JVD, Normal carotid pulses Cardiac: Reg Rate and Rhythm, Other (grade 3 upper right sternal border systolic murmur) Lungs: Normal Breath Sounds, No Wheeze, Rales, Rhonchi Neuro: Alert and responsive, No focal deficits noted Abdomen: Soft, Non-Tender Skin: No rashes noted on visualized skin Musculoskeletal: No Chest Wall Tenderness Extremities: No Clubbing, No Cyanosis, No Edema, Normal Pulses, Other (right lower ext ext rotated and short, normal sensation bilaterally, good pulses, normal color and perfusion) Results 08/12/16 01:15 08/12/16 01:15 Lab Results 08/11/16 08/11/16 08/12/16 07:15 17:37 01:15 WBC 11.8 H Hgb 12.7 D Hct 38.8 Plt Count 256 INR 1.1 APTT 30.2 Sodium Potassium Chloride Carbon Dioxide BUN Creatinine Glucose Calcium TSH 1.025 08/12/16 08/12/16 01:15 01:15 WBC Hgb Hct Plt Count INR APTT 176.0 H* D Sodium 137 Potassium 3.8 Chloride 105 Carbon Dioxide 23 BUN 18 Creatinine 1.12 H Glucose 133 H Calcium 9.1 TSH - VTE Documentation of Mechanical Device: Venous foot pump, device Consult Discharge Plan - Plan Referrals: Bella Turk CNP [Primary Care Provider] - <Viridiana Aguilera - Last Filed: 08/13/16 13:35> Date of Encounter: 08/13/16 Assessment and Plan Discussion w patient/family: I examined this patient and my medical decision-making was reviewed with the ARTS THERAPIST/PA/Advanced Practice Nurse/Resident Physician. I agree with the documented findings, disposition and treatment plan. Hospitalist discussed case with me. They were concerned that her symptoms were not reliable due to poor functional status. They requested stress testing which is reasonable. Will await stress test findings prior to clearance. Objective Vital Signs, Last 4 Hours Temp Pulse Resp BP Pulse Ox 08/13/16 10:58 97.8 F 83 18 127/83 97 Results 08/13/16 12:13 08/13/16 04:13 Lab Results 08/12/16 08/12/16 08/13/16 17:13 19:54 04:13 WBC Hgb 13.0 10.9 L D Hct 40.9 34.3 L Plt Count INR APTT 27.1 D Sodium Potassium Chloride Carbon Dioxide BUN Creatinine Glucose Calcium 08/13/16 08/13/16 08/13/16 04:13 12:02 12:02 WBC Hgb Hct Plt Count INR 1.1 APTT 24.4 L Sodium 138 Potassium 4.0 Chloride 106 Carbon Dioxide 21 BUN 19 Creatinine 1.06 Glucose 197 H Calcium 8.9 08/13/16 12:13 WBC 19.8 H D Hgb 11.0 L Hct 33.4 L Plt Count 230 INR APTT Sodium Potassium Chloride Carbon Dioxide BUN Creatinine Glucose Calcium
[2016-08-12] MEDS: Fluticasone Propionate Nasal 50 MCG/SPRAY BOTTLE NS SCH ×2 (08:44→21:18)
[2016-08-12] MEDS: Diltiazem CD (24hr) 120 MG CAPSULE PO SCH (08:46)
[2016-08-12] MEDS: Furosemide 20 MG TABLET PO SCH (08:47)
[2016-08-12] MEDS: Gabapentin 300 MG CAPSULE PO SCH ×2 (08:47→21:15)
[2016-08-12] MEDS: TIOTROPIUM BROMIDE 2.5 MCG IH SCH (08:47)
[2016-08-12] MEDS ORDERED: Regadenoson 0.4 MG/5 ML SYRINGE IVP ONE ×2 (12:07→12:17)
[2016-08-12] MEDS ORDERED: Dexamethasone 4 MG/ML VIAL ONE ×3 (13:40→16:14)
[2016-08-12] MEDS ORDERED: Lidocaine -MPF 4% 5 ML AMPUL ONE (13:40)
[2016-08-12] MEDS ORDERED: Lidocaine -MPF 2% 2 ML VIAL ONE ×3 (13:40→15:43)
[2016-08-12] MEDS ORDERED: *HR* Propofol 200 MG/20 ML VIAL IVP ONE ×3 (13:40→15:43)
[2016-08-12] MEDS ORDERED: Ondansetron 4 MG/2 ML VIAL ONE ×3 (13:40→16:14)
[2016-08-12] MEDS ORDERED: Ketorolac 30 MG/ML VIAL ONE ×2 (13:40→16:16)
[2016-08-12] MEDS ORDERED: *HR* Succinylcholine 200 MG/10 ML VIAL IVP ONE ×3 (13:40→15:43)
[2016-08-12] MEDS ORDERED: *HR* Midazolam HCl 2 MG/2 ML VIAL ONE ×2 (13:41→15:40)
[2016-08-12] MEDS ORDERED: *HR* FentaNYL (PF) 100 MCG/2 ML VIAL ONE ×2 (13:41→15:27)
--- NOTE | 2016-08-12 14:09 | Nuclear Medicine Stress Report ---
Regadenoson Nuclear Stress Name: Carmen Celaya Date of Study: 08/12/2016 Date: 1945 Ht: 63.0 in Medical Record#: [id number] Age: 71 Wt: 162.0 lb Gender: Female Order #: [id number] Location: [facility] Room: [facility] Supervising Provider: Marvel Saxena CNP Reading Physician: Sam Zayas DO, FAC, [facility] Ordering Physician: Javier Marti MD Primary Care Physician: Bella Turk CNP Stress Technologist: Hemalatha Carlos, COURTESY CLERK,[facility] Drywall Sprayer: Denny Hunter Indications: Pre-operative Impression: Pharmacologic stress ECG is negative for ischemia at level of heart rate achieved. Gated EF > 70%. Perfusion imaging was negative for ischemia or infarct. History: Hypertension Diabetes Hypercholesteremia Stress Test Summary: Stress Test Type: Pharmacologic Regadenoson 0.4mg/5ml given IV Baseline Information: Initial Heart Rate: 61 Blood Pressure: 152/48 Stress Information: Test Terminated Due to (primary): As per protocol Maximum Blood Pressure: 142/82 Maximum Heart Rate: 87 Percent Maximum Heart Rate Achieved: 59 Double Product: [id number] METS Reached: 1 Symptoms: No chest symptoms Nuclear Summary: SPECT myocardial perfusion imaging using [id number] Sestamibi given intravenously was performed at rest and following cardiac stress testing. The resting images were obtained following initial dose of 9.4 mCi. Following stress an additional dose of 33.0 mCi was given at peak exercise or 30 seconds post regadenoson infusion. Medication Given: Time Medication Dose Units Route Findings: Stress Note * Resting ECG demonstrated normal sinus rhythm. * No baseline arrhythmias were noted. * Pharmacologic stress ECG is negative for ischemia at level of heart rate achieved. * No arrhythmias were noted during stress. * Patient had no chest pain during stress. Hemodynamic responses * Normal hemodynamic responses to pharmacologic stress. Study Quality * Study quality is average. Gated EF > 70% * Gated EF > 70%. Left Ventricle * The left ventricle is not dilated. LVEDV = 71 mL. NORMALS * Normal wall motion. * Normal Segmental Perfusion in rest. * Normal segmental perfusion in stress. TID * No evidence of transient ischemic dilatation. TID ratio = 0.81. Lung Uptake * There is no evidence of increase lung uptake. Updated by Sam Zayas DO, YURY, JEFRY, PAOLA on 08/12/2016 1:59:23 PM electronically signed on 08/12/2016 2:04:01 PM with status of Final
--- NOTE | 2016-08-12 14:33 | Event Note ---
Date of Encounter: 08/12/16 Time of Encounter: 14:32 - Cardiology Event Note Stress test resulted. Gated EF >70%, perfusion imaging negative for ischemia or infarct. Pt is acceptable risk to proceed with orthopedic surgery. Cardiology signing off. Reconsult PRN.
[2016-08-12] MEDS ORDERED: *HR* Rocuronium Bromide 50 MG/5 ML VIAL ONE (15:26)
[2016-08-12] MEDS ORDERED: *HR* Etomidate 40 MG/20 ML VIAL IVP ONE (15:26)
[2016-08-12] MEDS ORDERED: EPHEDrine 50 MG/ML VIAL ONE ×2 (15:31→16:41)
--- NOTE | 2016-08-12 16:01 | Internal Med Progress Note ---
<SudhakarMargaret Cherellerodney Holliday - Last Filed: 08/12/16 15:58> Date of Encounter: 08/12/16 Time of Encounter: 14:45 - Assessment and plan (1) Closed right hip fracture Current Visit: Yes Status: Inactive Assessment and plan: 08/12/16 Patient had stress test today Gated EF >70%, perfusion imaging negative for ischemia or infarct Cardiology has cleared patient for surgery Ortho plans to take to surgery this afternoon We will resume heparin 18 hours after anesthesia time 08/11/[address] demonstrates mildly displaced right subcapital femur fracture without dislocation Patient is hemodynamically stable with no signs of hematoma or ecchymosis on exam Dr. Phillips has been consulted and plans to perform surgery tomorrow Continue pain management NPO after midnight Qualifiers: Encounter type: initial encounter Qualified Code(s): S72.001A - Fracture of unspecified part of neck of right femur, initial encounter for closed fracture (2) UTI (urinary tract infection) Current Visit: Yes Status: Acute Assessment and plan: 08/12/16 Urine culture positive for gram negative james WBC decreased to 11.8 today from 16.7 yesterday Previous urine culture on 05/21/16 was positive for E. coli with resistance to Ampicillin Continue Rocephin (day#2) 08/11/16 UA with presence of nitrite, leukocyte esterase, WBC, bacteria WBC 16.7 upon presentation to hospital Urine culture pending Previous urine culture on 05/21/16 was positive for E. coli with resistence to Ampicillin Continue Rocephin (day#1) Qualifiers: Urinary tract infection type: site unspecified Hematuria presence: without hematuria Qualified Code(s): N39.0 - Urinary tract infection, site not specified (3) A-fib Current Visit: Yes Status: Chronic Assessment and plan: History of Paroxysmal afib CHADs VASC = 7 Continue Diltiazem Hold Rivaroxaban until after surgery Will restart Heparin drip 18 hours after anesthesia time Qualifiers: Atrial fibrillation type: unspecified Qualified Code(s): I48.91 - Unspecified atrial fibrillation (4) CAD (coronary artery disease) Current Visit: Yes Status: Chronic Assessment and plan: Patient acceptable for surgery per cardiology Hold plavix Qualifiers: Coronary Disease-Associated Artery/Lesion type: ute artery [place] vs. transplanted heart: ute heart Associated angina: without angina Qualified Code(s): I25.10 - Atherosclerotic heart disease of ute coronary artery without angina pectoris (5) Diabetes Current Visit: Yes Status: Chronic Assessment and plan: Low dose SS correction ACHS Qualifiers: Diabetes mellitus type: type 2 Diabetes mellitus complication status: with hyperglycemia Diabetes mellitus mcc insulin use: with mcc use Qualified Code(s): E11.65 - Type 2 diabetes mellitus with hyperglycemia; Z79.4 - snf (current) use of insulin (6) Hypertension Current Visit: Yes Status: Chronic Assessment and plan: Stable at this time Continue home dose atenolol Holding Hyzaar today for surgery as MARIA G inhibitors and ARBS may cause perioperative hypotension Will restart Hyzaar tomorrow. Will hold Hyzaar if systolic BP is less than 130 Continue to monitor Qualifiers: Hypertension type: essential hypertension Qualified Code(s): I10 - Essential (primary) hypertension (7) COPD (chronic obstructive pulmonary disease) Current Visit: Yes Status: Chronic Assessment and plan: Continue home dose of Spiriva and Montelukast O2 supplementation as needed Qualifiers: COPD type: unspecified COPD Qualified Code(s): J44.9 - Chronic obstructive pulmonary disease, unspecified (8) Diastolic CHF Current Visit: Yes Status: Chronic Assessment and plan: Patient is euvolemic on exam Continue Lasix 20mg po daily Qualifiers: Congestive heart failure chronicity: chronic Qualified Code(s): I50.32 - Chronic diastolic (congestive) heart failure (9) Hypokalemia Current Visit: Yes Status: Acute Assessment and plan: Resolved Continue to monitor (10) DVT prophylaxis Current Visit: Yes Status: Acute Assessment and plan: Patient on Heparin drip for therapeutic coverage due to afib with CHADs VASC=7 - Subjective Interval history: Patient states that she is doing well this morning. Had nuclear stress today Gated EF >70%, perfusion imaging negative for ischemia or infarct. Cardiology stated that patient is acceptable risk to proceed with orthopedic surgery. Dr. Phillips was notified. Patient scheduled for surgery at 15:30 today. - Constitutional Vitals: Temp Pulse Resp BP Pulse Ox 98.5 F 62 16 160/73 95 08/12/16 11:19 08/12/16 11:19 08/12/16 11:19 08/12/16 11:19 08/12/16 11:19 General appearance: Present: cooperative, A&O X 3, no acute distress, answers questions appropriately - Head Head exam: Present: atraumatic, normocephalic - Eye Eye exam: Present: EOMI, PERRL, conjuntiva pink, sclera anicteric - Neck Neck exam general surgery: Present: full ROM, supple, trachea midline. Absent: lymphadenopathy - Respiratory Respiratory exam: Present: CTAB. Absent: accessory muscle use, rales, rhonchi, wheezes - Cardiovascular Cardiovascular exam: Present: irregular rhythm, +S1, +S2, systolic murmur (best appreciated at left lateral wall). Absent: diastolic murmur, gallop, rubs - GI/Abdominal GI/Abdominal exam: Present: normal bowel sounds, soft, no peritoneal signs. Absent: distended, tenderness Additional comments: healed surgical scars to midline - Extremities Exam Extremities exam: Present: warm, radial pulses palpable and symetrical. Absent : calf tenderness, cyanotic, pedal edema Additional comments: Right lateral proximal leg with increased edema. No erythema or hematoma appreciated. - Neurological Exam Neurological exam: Present: CN II-XII intact, oriented X3, no focal deficits. Absent: facial droop, speech deficit - Skin Skin exam: Present: dry, intact Internal Medicine: Result - Labs CBC & Chem 7: 08/12/16 01:15 08/12/16 01:15 Labs: Short CBC 08/12/16 Range/Units 01:15 WBC 11.8 H (4.3-11.1) K/mcL Hgb 12.7 D (11.5-15.4) g/dL Hct 38.8 (35.3-44.9) % Plt Count 256 (140-400) K/mcL Neutrophils # 8.9 (1.6-8.9) K/mcL BMP 08/12/16 01:15 Sodium 137 Potassium 3.8 Chloride 105 Carbon Dioxide 23 BUN 18 Creatinine 1.12 H Glucose 133 H Calcium 9.1 - ABG Interpretation ABG results: PT/INR, D-dimer PT 11.4 Seconds (9.4-12.1) 08/11/16 17:37 - VTE Documentation of Mechanical Device: Venous foot pump, device Consult Discharge Plan - Plan Referrals: Bella Turk CNP [Primary Care Provider] - <Javier Marti - Last Filed: 08/12/16 18:45> Date of Encounter: 08/12/16 - Constitutional Vitals: Temp Pulse Resp BP Pulse Ox 97.7 F 82 17 153/85 95 08/12/16 18:00 08/12/16 18:00 08/12/16 18:00 08/12/16 18:00 08/12/16 18:00 Internal Medicine: Result - Labs CBC & Chem 7: 08/12/16 17:13 08/12/16 01:15 Labs: Short CBC 08/12/16 08/12/16 Range/Units 01:15 17:13 WBC 11.8 H (4.3-11.1) K/mcL Hgb 12.7 D 13.0 (11.5-15.4) g/dL Hct 38.8 40.9 (35.3-44.9) % Plt Count 256 (140-400) K/mcL Neutrophils # 8.9 (1.6-8.9) K/mcL BMP 08/12/16 01:15 Sodium 137 Potassium 3.8 Chloride 105 Carbon Dioxide 23 BUN 18 Creatinine 1.12 H Glucose 133 H Calcium 9.1 - ABG Interpretation ABG results: PT/INR, D-dimer PT 11.4 Seconds (9.4-12.1) 08/11/16 17:37 - Impressions Impressions Hip X-Ray 08/12/16 15:37 IMPRESSION: No unexpected findings following right hip arthroplasty. D/ / Faizan Taylor MD / Faizan Taylor MD Interpreting Provider: Faizan Taylor MD - Attending Attestation I examined this patient and my medical decision-making was reviewed with the Resident Physician, Dr. Agrawal. I agree with the documented findings, disposition and treatment plan as described except to the extent set forth below. During the interview of the patient today she tells me that she actually ambulates with a walker and the only time that she does not need a walker as when she pushes a shopping cart. She says she does never walk up the stairs by she states that she can walk okay. She cannot tell me how far she can walk on flat ground but she says that she has a handicapped ramp at home which she can climb with her walker. Based on this information I did not believe she qualifies as 4 MET performance level. I have reviewed her cardiology [place] discussed the case with coach builder. She has had severe 1 vessel disease in the past with no intervention, only medical management. Given that she does not require emergent surgery have discussed the case with the coach builder and decided to proceed with stress testing. On exam the patient is in no acute distress. Heart exam reveals regular rhythm S1-S2 no murmurs rubs or gallops. Lungs are clear bilaterally abdomen is soft. She is at high risk for morbidity, mortality and complications due to major surgery today.
[2016-08-12] MEDS ORDERED: *HR* HYDROmorphone (PF) 1 MG/ML SYRINGE IVP PRN (16:26)
[2016-08-12] MEDS ORDERED: Ondansetron 4 MG/2 ML VIAL IVP ONE (16:26)
[2016-08-12] MEDS ORDERED: *HR* Promethazine 25 MG/ML VIAL IVP PRN (16:26)
--- NOTE | 2016-08-12 16:35 | Anesthesia Procedures ---
Date of Encounter: 08/12/16 Time of Encounter: 15:40 Procedures: Anesthesia - Nerve Block Procedure Date: 08/12/16 Time: 15:40 Allergies/Adv Reactions: NKDA Pre-op Diagnosis: ARTHRITIS Surgical Procedure: RIGHT HIP ARTHROPLASTY Checklist: Correct Patient Identifier, Correct procedure, History checked Correct side: Right Blood Thinner: No Monitor Applied: EKG, BP, Pulse Oximetry Supplemental Oxygen via Nasal Cannula (L/min): 2 Sedation: Versed (mg): 2 Sedation: Fentanyl (mcg): 100 Indication: Post Op Analgesia Pre-op Neuro Deficits: No Block Type: Other (FASCIA ILIACA BLOCK ) Catheter placed: No Sterile Technique: Yes Ultrasound used: Yes Anatomy identified: Yes Visual spread of Local: Yes Neuro Stimulation: No Blood on Needle Aspiration: No Smooth Injection of Local: Yes Pain with Injection of Local: No Prep: Chlorhexadine Needle: 22 x 50 mm Stimuplex Local: Other (BUPIVICAINE 0.25%) Volume (cc): 60 Number of Attempts: 1 Complications: None/effective block Vitals: Vital Signs - Last 8 Hours Temp Pulse Resp BP Pulse Ox 08/12/16 11:19 98.5 F 62 16 160/73 95 Intake and Output 08/12/16 08/12/16 08/12/16 07:59 15:59 23:59 Intake Total 137 / 137 Output Total 1400 / 1400 Balance 137 / 137 -1400 / -1400 Intake: IV Fluids 137 / 137 Heparin 25,000 UNIT/500 137 / 137 ML D5W 25,000 unit In 500 ml @ 14 UNIT/KG/HR 20. 776 mls/hr IVC .Q24H [facility] Rx#:[id number] Output: Catheter 1400 / 1400 Other: Blood Glucose* 157 119 Comments: PER DR. MCNULTY REQUEST
--- NOTE | 2016-08-12 16:46 | Orthopedic Operative Note ---
Date of procedure: 08/12/16 Pre-op diagnosis: Displaced right femoral neck fracture Post-op diagnosis: same Procedure: Procedure: Right hip hemiarthroplasty Estimated blood loss: 100 cc Hardware: Biomet 10 stem, 49 Endo head +3 taper Procedural Notes: Operative procedure: The patient was brought to the operating room and placed on the operating room table. After general anesthesia was administered the patient was placed in the lateral decubitus position with the operative leg up. All pressure points were padded appropriately and the head was stabilized in the neutral position. The operative extremity was prepped and draped in the sterile surgical fashion patient received IV antibiotic prior to skin incision. A standard posterior approach is made to the operative hip, the incision was made through the skin and subcutaneous tissue hemostasis was obtained with Bovie cautery. Using careful sharp dissection the fascia was identified and incised exposing the external rotators. The external rotators were released off the greater trochanter and tagged with #2 FiberWire suture. The capsule was T'd open the femoral head was removed. The femoral neck cut was made at the appropriate level. The hip was brought into internal rotation and prepared with the steel box toe inserter followed by the canal finder followed by broaching process in 20 degrees anteversion. It was broached up to the appropriate size 10. The 10 femoral implant was impacted in place in 20 degrees of anteversion. Trial reduction found the hip to be stable with the appropriate +3 neck 49 head. The trials were removed and the real implants were impacted in place. The hip was reduced , the hip had full extension and full flexion of the knee was in full extension.the patient had apparent equal leg length. The hip had excellent stability with forward flexion to 90 degrees adduction of 30 degrees and internal rotation of 60 degrees. The hip had no shuck. The hip was irrigated out with 2 L of pulse irrigation. The external rotators were reattached to drill holes in the greater trochanter. Fascia was closed with a running #2 PDS suture. The deep tissue was irrigated and closed deep with #1 PDS suture superficially with 0 PDS suture and skin was closed with skin edi. The patient was placed in a sterile dressing and abduction pillow. The patient was extubated and transferred to the recovery room in stable condition. Anesthesia: GETA Surgeon: Jayson Phillips Condition: stable Disposition: PACU
[2016-08-12] MEDS ORDERED: *HR* Labetalol 20 MG/4 ML SYRINGE IVP PRN (17:19)
[2016-08-12 17:20] LABS: Hematocrit 40.9 % (35.3-44.9)
--- NOTE | 2016-08-12 17:49 | Anesthesia Evaluation Post Op ---
Date of Encounter: 08/12/16 Time of Encounter: 17:48 - Vital Signs Vital Signs: Vital Signs/O2 Sat, Most Current Temp Pulse Resp BP Pulse Ox 98.8 F 80 16 168/98 97 08/12/16 17:23 08/12/16 17:33 08/12/16 17:33 08/12/16 17:33 08/12/16 17:33 - Lungs Lungs: Clear Ascult./Percussion - Airway Airway: Non-obstructed - Cardiovascular Regular Rate - Mental Status Mental Status: Alert & Oriented, Answers Appropriately - Pain Pain Scale: 0 Pain Scale used: Numeric (1 - 10) - Nausea Vomiting Nausea Vomiting: Not Present - Hydration Hydration: Ice chips, Tovar catheter - Discharge PostOp Status: Transfer Patient to floor
[2016-08-12] MEDS ORDERED: Dextrose Gel 15 GM PO PRN ×2 (18:09)
[2016-08-12] MEDS ORDERED: hydrALAZINE 10 MG TABLET PO PRN (18:09)
[2016-08-12] MEDS ORDERED: *HR* Morphine 2 MG/ML SYRINGE IVP PRN (18:09)
[2016-08-12] MEDS ORDERED: Acetaminophen 325 MG TABLET PO PRN (18:09)
[2016-08-12] MEDS ORDERED: D5% in Water 1,000 ML IVC PRN (18:09)
[2016-08-12] MEDS ORDERED: Naloxone 0.4 MG/ML INJ IVP PRN ×2 (18:09)
[2016-08-12] MEDS ORDERED: *HR* Dextrose 50 % in Water (Syg) 50 ML SYRINGE IVP PRN (18:09)
[2016-08-12] MEDS ORDERED: Ondansetron 4 MG/2 ML VIAL IVP PRN ×2 (18:09)
[2016-08-12] MEDS ORDERED: Sennosides 8.6 MG TABLET PO PRN (18:09)
[2016-08-12] MEDS ORDERED: Insulin LISPRO 300 UNITS/3 ML VIAL SQ SCH (18:15)
[2016-08-12] MEDS: ceFAZolin 2,000 MG in D5% in Water 100 ML IVPB SCH ×2 (19:23→23:35)
[2016-08-12] MEDS: Ascorbic Acid 500 MG TABLET PO SCH (19:24)
[2016-08-12] MEDS: Ringers Solution, Lactated 1,000 ML IVC SCH (21:23)
[2016-08-13 04:43] LABS: Hematocrit 34.3 % (35.3-44.9)
[2016-08-13 04:48] LABS: Hemoglobin 10.9 g/dL (11.5-15.4)
[2016-08-13] MEDS: Furosemide 20 MG TABLET PO SCH (08:21)
[2016-08-13] MEDS: Gabapentin 300 MG CAPSULE PO SCH ×2 (08:21→21:19)
[2016-08-13] MEDS: *HR* HYDROcodone/Acet 5/325 mg TABLET PO PRN (08:22)
[2016-08-13] MEDS: Ascorbic Acid 500 MG TABLET PO SCH ×2 (08:22→16:43)
[2016-08-13] MEDS: Diltiazem CD (24hr) 120 MG CAPSULE PO SCH (08:22)
[2016-08-13] MEDS: Multivit/Ca/Min/Fe/FA 1 TAB TABLET PO SCH (08:22)
[2016-08-13] MEDS: Patient Taking Own Medication 1 EACH IH SCH (08:22)
[2016-08-13] MEDS: Ringers Solution, Lactated 1,000 ML IVC SCH (08:23)
[2016-08-13] MEDS: Insulin LISPRO 300 UNITS/3 ML VIAL SQ SCH ×4 (08:24→21:19)
[2016-08-13] MEDS: Fluticasone Propionate Nasal 50 MCG/SPRAY BOTTLE NS SCH ×2 (08:34→21:21)
[2016-08-13] MEDS ORDERED: Losartan/HCTZ 50-12.5 TABLET PO SCH (09:00)
--- NOTE | 2016-08-13 10:27 | Orthopedics Progress Note ---
Date of Encounter: 08/13/16 Time of Encounter: 10:26 Subjective Principal diagnosis: Right hip fracture, preop eval Interval history: S: No complaints. Pain well controlled. O: Afeb, VSS Right thigh dressing is clean, dry, intact. NV intact distally. Calf soft. A: Post op day 2 after right hip hemiarthroplasty P: Resume post op care Objective Vital signs: Vital Signs Temp Pulse Resp BP Pulse Ox 08/13/16 08:18 98 112/75 08/13/16 05:10 97.8 F 86 16 116/75 95 08/12/16 23:33 97.7 F 81 18 109/71 93 08/12/16 21:00 85 18 120/75 95 08/12/16 20:23 98 08/12/16 20:00 97.8 F 84 18 117/77 98 08/12/16 19:00 97.7 F 78 18 128/75 97 08/12/16 18:30 97.6 F 84 16 155/80 95 08/12/16 18:00 97.7 F 82 17 153/85 95 08/12/16 17:43 99.3 F 78 16 151/86 95 08/12/16 17:33 80 16 168/98 97 08/12/16 17:23 98.8 F 79 16 175/81 97 08/12/16 17:13 77 16 181/71 96 08/12/16 17:03 77 16 175/90 99 08/12/16 16:53 98.7 F 71 15 148/76 100 08/12/16 11:19 98.5 F 62 16 160/73 95 Intake and Output 08/12/16 08/13/16 08/13/16 23:59 07:59 15:59 Intake Total 100 / 100 400 / 400 1480 / 1480 Output Total 450 / 450 200 / 200 Balance -350 / -350 200 / 200 1480 / 1480 Intake: IV Fluids 100 / 100 1000 / 1000 Lactated Ringers 1,000 ML 1000 / 1000 @ 75 mls/hr IVC .[id number] [facility] Rx#:[id number] Ancef 2,000 MG In 100 / 100 Dextrose 5% 100 ML @ 200 mls/hr IVPB Q8HR ANDRES Rx#: [id number] Oral 400 / 400 480 / 480 Output: Estimated Blood Loss 100 / 100 Catheter 350 / 350 200 / 200 Other: Weight 75.5 kg Blood Glucose* 285 187 Patient Weight 08/13/16 23:59 Weight 75.5 kg - Labs CBC & BMP: 08/13/16 04:13 08/12/16 01:15 Labs: Abnormal lab results WBC 11.8 K/mcL (4.3-11.1) H 08/12/16 01:15 Hgb 10.9 g/dL (11.5-15.4) L D 08/13/16 04:13 Hct 34.3 % (35.3-44.9) L 08/13/16 04:13 MCV 81.0 fL (83.0-100.0) L 08/12/16 01:15 MCH 26.5 pg (28.0-33.3) L 08/12/16 01:15 Heparin Anti-Xa, Unfract 1.15 IU/mL (0.30-0.70) H* 08/12/16 01:15 Creatinine 1.12 mg/dL (0.57-1.11) H 08/12/16 01:15 Est GFR ( Amer) 58 (> 60) L 08/12/16 01:15 Est GFR (Non-Af Amer) 48 (> 60) L 08/12/16 01:15 Glucose 133 mg/dL (70-99) H 08/12/16 01:15 POC Glucose 285 (58-89) H 08/12/16 19:59 - VTE Documentation of Mechanical Device: Venous foot pump, device Consult Discharge Plan - Plan Referrals: Bella Turk CNP [Primary Care Provider] -
[2016-08-13 11:31] LABS: BUN/Creatinine Ratio 18 (6-26); Blood Urea Nitrogen 19 mg/dL (7-20); Calcium 8.9 mg/dL (8.6-10.8); Carbon Dioxide 21 mEq/L (19-29); Chloride 106 mEq/L (98-109); Glucose 197 mg/dL (70-99); Osmolality,Calculated 294 (280-300); Sodium 138 mEq/L (136-145); eGFR For African Americans > 60 (> 60); eGFR For Non-African Americans 51 (> 60)
[2016-08-13] MEDS ORDERED: Bisacodyl 10 MG RECTAL SUPPOSITORY RC ONE (11:44)
[2016-08-13 12:28] LABS: Eosinophils % 0.1 %; Hematocrit 33.4 % (35.3-44.9); Immature Granulocytes % 1.3 % (0-4); Immature Platelets 6.6 % (1.1-6.1); Lymphocytes % 6.1 %; Mean Corpuscular HGB Conc 32.9 g/dL (31.6-35.5); Mean Corpuscular Hemoglobin 25.9 pg (28.0-33.3); Mean Corpuscular Volume 78.8 fL (83.0-100.0); Mean Platelet Volume 10.8 fL (9.4-12.4); Monocytes % 9.4 %; Platelet Count 230 K/mcL (140-400); Red Blood Count 4.24 M/mcL (3.82-4.97); Red Cell Distribution Width 14.1 % (11.5-14.5)
[2016-08-13 12:29] LABS: Basophils % 0.1 %; Lymphocytes # 1.2 K/mcL (0.6-4.6); Monocytes # 1.9 K/mcL (0.0-1.3); Neutrophils # 16.4 K/mcL (1.6-8.9)
[2016-08-13 12:44] LABS: INR 1.1; Prothrombin Time 11.8 Seconds (9.4-12.1)
--- NOTE | 2016-08-13 12:45 | Internal Med Progress Note ---
<Feng De La Fuentessclaire Holliday - Last Filed: 08/13/16 13:09> Date of Encounter: 08/13/16 Time of Encounter: 11:30 - Assessment and plan (1) Closed right hip fracture Current Visit: Yes Status: Inactive Assessment and plan: 08/13/16 s/p day#1 repair of right hip Patient doing well Pain is well-controlled Continue pain management Restart heparin drip today 08/12/16 Patient had stress test today Gated EF >70%, perfusion imaging negative for ischemia or infarct Cardiology has cleared patient for surgery Ortho plans to take to surgery this afternoon We will resume heparin 18 hours after anesthesia time 08/11/[address] demonstrates mildly displaced right subcapital femur fracture without dislocation Patient is hemodynamically stable with no signs of hematoma or ecchymosis on exam Dr. Phillips has been consulted and plans to perform surgery tomorrow Continue pain management NPO after midnight Qualifiers: Encounter type: initial encounter Qualified Code(s): S72.001A - Fracture of unspecified part of neck of right femur, initial encounter for closed fracture (2) UTI (urinary tract infection) Current Visit: Yes Status: Acute Assessment and plan: 08/13/16 Urine culture positive for Escherichia hermannii sensitive to Rocephin WBC increased to 19.8 today from 11.8 yesterday. Neutrophilia is present. Previous urine culture on 05/21/16 was positive for E. coli with resistance to Ampicillin Continue Rocephin (day#3) Closely monitor 08/12/16 Urine culture positive for gram negative james WBC decreased to 11.8 today from 16.7 yesterday Previous urine culture on 05/21/16 was positive for E. coli with resistance to Ampicillin Continue Rocephin (day#2) 08/11/16 UA with presence of nitrite, leukocyte esterase, WBC, bacteria WBC 16.7 upon presentation to hospital Urine culture pending Previous urine culture on 05/21/16 was positive for E. coli with resistence to Ampicillin Continue Rocephin (day#1) Qualifiers: Urinary tract infection type: site unspecified Hematuria presence: without hematuria Qualified Code(s): N39.0 - Urinary tract infection, site not specified (3) Leukocytosis Current Visit: Yes Status: Acute Assessment and plan: Increased WBC from yesterday prior to surgery Likely secondary to stress response due to surgery Will continue Rocephin Will continue to monitor Qualifiers: Leukocytosis type: unspecified Qualified Code(s): D72.829 - Elevated white blood cell count, unspecified (4) A-fib Current Visit: Yes Status: Chronic Assessment and plan: History of Paroxysmal afib CHADs VASC = 7 Will restart Heparin drip today Continue Diltiazem Qualifiers: Atrial fibrillation type: unspecified Qualified Code(s): I48.91 - Unspecified atrial fibrillation (5) CAD (coronary artery disease) Current Visit: Yes Status: Chronic Assessment and plan: Known CAD Nuclear stress 08/12/16 negative for ischemia or infarct Qualifiers: Coronary Disease-Associated Artery/Lesion type: grindstone artery [place] vs. transplanted heart: grindstone heart Associated angina: without angina Qualified Code(s): I25.10 - Atherosclerotic heart disease of grindstone coronary artery without angina pectoris (6) Diabetes Current Visit: Yes Status: Chronic Assessment and plan: Low dose SS correction ACHS Qualifiers: Diabetes mellitus type: type 2 Diabetes mellitus complication status: with hyperglycemia Diabetes mellitus ferry terminal agent insulin use: with ferry terminal agent use Qualified Code(s): E11.65 - Type 2 diabetes mellitus with hyperglycemia; Z79.4 - terminal computer operator (current) use of insulin (7) Hypertension Current Visit: Yes Status: Chronic Assessment and plan: Stable at this time 127/83 Continue home dose atenolol Holding Hyzaar today Will consider restarting home dose of Hyzaar if BP becomes elevated Continue to monitor Qualifiers: Hypertension type: essential hypertension Qualified Code(s): I10 - Essential (primary) hypertension (8) COPD (chronic obstructive pulmonary disease) Current Visit: Yes Status: Chronic Assessment and plan: Continue home dose of Spiriva and Montelukast O2 supplementation as needed Qualifiers: COPD type: unspecified COPD Qualified Code(s): J44.9 - Chronic obstructive pulmonary disease, unspecified (9) Diastolic CHF Current Visit: Yes Status: Chronic Assessment and plan: Patient is euvolemic on exam Continue Lasix 20mg po daily Qualifiers: Congestive heart failure chronicity: chronic Qualified Code(s): I50.32 - Chronic diastolic (congestive) heart failure (10) Hypokalemia Current Visit: Yes Status: Acute Assessment and plan: Resolved Continue to monitor (11) Constipation Current Visit: Yes Status: Acute Assessment and plan: Dulcolax Rectal Continue Colace BID scheduled Qualifiers: Constipation type: unspecified constipation type Qualified Code(s): K59.00 - Constipation, unspecified (12) History of CVA with residual deficit Current Visit: Yes Status: Chronic Assessment and plan: Will restart Plavix tomorrow morning (13) DVT prophylaxis Current Visit: Yes Status: Acute Assessment and plan: Patient on Heparin drip for therapeutic coverage due to afib with CHADs VASC=7 - Subjective Interval history: 08/13/16 Patient doing well this morning. States that she only has pain when she moves. Complains of constipation today. Complains that she cannot reach the floor with her right foot, but she can with her right. No chest pain or dyspnea. 08/12/16 Patient states that she is doing well this morning. Had nuclear stress today Gated EF >70%, perfusion imaging negative for ischemia or infarct. Cardiology stated that patient is acceptable risk to proceed with orthopedic surgery. Dr. Phillips was notified. Patient scheduled for surgery at 15:30 today. - Constitutional Vitals: Temp Pulse Resp BP Pulse Ox 97.8 F 83 18 127/83 97 08/13/16 10:58 08/13/16 10:58 08/13/16 10:58 08/13/16 10:58 08/13/16 10:58 General appearance: Present: cooperative, A&O X 3, no acute distress, answers questions appropriately - Head Head exam: Present: atraumatic, normocephalic - Eye Eye exam: Present: EOMI, PERRL, sclera anicteric. Absent: conjuntiva pink Additional comments: pale conjunctiva - Neck Neck exam general surgery: Present: supple, trachea midline. Absent: lymphadenopathy - Respiratory Respiratory exam: Present: CTAB. Absent: accessory muscle use, rales, rhonchi, wheezes - Cardiovascular Cardiovascular exam: Present: irregular rhythm, +S1, +S2, systolic murmur. Absent: diastolic murmur, gallop, rubs - GI/Abdominal GI/Abdominal exam: Present: normal bowel sounds, soft, no peritoneal signs. Absent: distended, tenderness Additional comments: well-healed surgical scars to midline abdomen - Extremities Exam Extremities exam: Present: warm, radial pulses palpable and symetrical. Absent : calf tenderness, cyanotic, pedal edema Additional comments: Right hip with mild edema Surgical scar with overlying dressing Dressing with scant drainage No surrounding warmth or erythema - Neurological Exam Neurological exam: Present: CN II-XII intact, oriented X3, no focal deficits. Absent: facial droop, speech deficit - Skin Skin exam: Present: dry, intact Internal Medicine: Result - Labs CBC & Chem 7: 08/13/16 12:13 08/13/16 04:13 Labs: Short CBC 08/12/16 08/13/16 08/13/16 Range/Units 17:13 04:13 12:13 WBC 19.8 H D (4.3-11.1) K/mcL Hgb 13.0 10.9 L D 11.0 L (11.5-15.4) g/dL Hct 40.9 34.3 L 33.4 L (35.3-44.9) % Plt Count 230 (140-400) K/mcL Neutrophils # 16.4 H (1.6-8.9) K/mcL BMP 08/13/16 04:13 Sodium 138 Potassium 4.0 Chloride 106 Carbon Dioxide 21 BUN 19 Creatinine 1.06 Glucose 197 H Calcium 8.9 - ABG Interpretation ABG results: PT/INR, D-dimer PT 11.4 Seconds (9.4-12.1) 08/11/16 17:37 - Impressions Impressions Hip X-Ray 08/12/16 15:37 IMPRESSION: No unexpected findings following right hip arthroplasty. D/ / Faizan Taylor MD / Faizan Taylor MD Interpreting Provider: Faizan Taylor MD - VTE Documentation of Mechanical Device: Venous foot pump, device Consult Discharge Plan - Plan Referrals: Bella Turk CNP [Primary Care Provider] - <Javier Marti - Last Filed: 08/13/16 17:03> Date of Encounter: 08/13/16 - Constitutional Vitals: Temp Pulse Resp BP Pulse Ox 98.0 F 67 18 114/68 95 08/13/16 14:49 08/13/16 14:49 08/13/16 14:49 08/13/16 14:49 08/13/16 14:49 Internal Medicine: Result - Labs CBC & Chem 7: 08/13/16 12:13 08/13/16 04:13 Labs: Short CBC 08/12/16 08/13/16 08/13/16 Range/Units 17:13 04:13 12:13 WBC 19.8 H D (4.3-11.1) K/mcL Hgb 13.0 10.9 L D 11.0 L (11.5-15.4) g/dL Hct 40.9 34.3 L 33.4 L (35.3-44.9) % Plt Count 230 (140-400) K/mcL Neutrophils # 16.4 H (1.6-8.9) K/mcL BMP 08/13/16 04:13 Sodium 138 Potassium 4.0 Chloride 106 Carbon Dioxide 21 BUN 19 Creatinine 1.06 Glucose 197 H Calcium 8.9 - ABG Interpretation ABG results: PT/INR, D-dimer PT 11.8 Seconds (9.4-12.1) 08/13/16 12:02 - Impressions Impressions Hip X-Ray 08/12/16 15:37 IMPRESSION: No unexpected findings following right hip arthroplasty. D/ / Faizan Taylor MD / Faizan Taylor MD Interpreting Provider: Faizan Taylor MD - Attending Attestation I examined this patient and my medical decision-making was reviewed with the Resident Physician, Dr De La Fuente. I agree with the documented findings, disposition and treatment plan as described except to the extent set forth below. Patient reports mild right hip pain, 0/10 at rest, moderate with mobilization. Currently sitting up in a chair. Denies chest pain shortness of breath. On exam her heart is regular with S1-S2, lungs are clear extremities with no edema. Plan: Postoperative day 1 status post right hip hemiarthroplasty. Diastolic heart failure chronic, paroxysmal atrial fibrillation on oral anticoagulation. We will resume heparin drip for anticoagulation. Monitor hemoglobin and hematocrit closely. PT OT and pain control. She is at high risk for morbidity and complications due to heparin drip which requires close coagulation parameters monitoring.
[2016-08-13] MEDS: Heparin 25,000 UNIT/500 ML D5W 25,000 UNIT/500 ML MLS IVC SCH (13:14)
[2016-08-13] MEDS: *HR* Heparin 5,000 UNIT/ML VIAL IVP PRN (13:18)
[2016-08-13 20:00] LABS: Activated Partial Thrombo Time 129.5 Seconds (26.0-36.0)
[2016-08-13 20:17] LABS: Heparin anti-factor XA UFH 1.44 IU/mL (0.30-0.70)
[2016-08-13] MEDS ORDERED: 0.9 % Sodium Chloride 500 ML ONE (21:05)
[2016-08-13] MEDS: Temazepam 15 MG CAPSULE PO PRN (21:32)
[2016-08-14 04:27] LABS: Hematocrit 28.7 % (35.3-44.9)
[2016-08-14 04:54] LABS: BUN/Creatinine Ratio 21 (6-26); Blood Urea Nitrogen 22 mg/dL (7-20); Calcium 8.7 mg/dL (8.6-10.8); Carbon Dioxide 23 mEq/L (19-29); Chloride 107 mEq/L (98-109); Glucose 175 mg/dL (70-99); Osmolality,Calculated 292 (280-300); Potassium 3.9 mEq/L (3.5-4.5); Sodium 137 mEq/L (136-145); eGFR For African Americans > 60 (> 60); eGFR For Non-African Americans 53 (> 60)
[2016-08-14] MEDS: *HR* Heparin 5,000 UNIT/ML VIAL IVP PRN ×2 (05:07→11:11)
[2016-08-14] MEDS: *HR* HYDROcodone/Acet 5/325 mg TABLET PO PRN ×2 (05:23→22:48)
[2016-08-14] MEDS: Ringers Solution, Lactated 1,000 ML IVC SCH ×2 (07:22→11:49)
[2016-08-14] MEDS: Furosemide 20 MG TABLET PO SCH (08:38)
[2016-08-14] MEDS: Multivit/Ca/Min/Fe/FA 1 TAB TABLET PO SCH (08:50)
[2016-08-14] MEDS: Gabapentin 300 MG CAPSULE PO SCH ×2 (08:51→20:10)
[2016-08-14] MEDS: Patient Taking Own Medication 1 EACH IH SCH (08:52)
[2016-08-14] MEDS: Ascorbic Acid 500 MG TABLET PO SCH ×2 (08:52→17:23)
[2016-08-14] MEDS: Insulin LISPRO 300 UNITS/3 ML VIAL SQ SCH ×4 (08:53→20:18)
[2016-08-14] MEDS: Diltiazem CD (24hr) 120 MG CAPSULE PO SCH (08:54)
[2016-08-14] MEDS: Fluticasone Propionate Nasal 50 MCG/SPRAY BOTTLE NS SCH ×2 (08:55→20:11)
--- NOTE | 2016-08-14 10:55 | Orthopedics Progress Note ---
Date of Encounter: 08/14/16 Time of Encounter: 10:53 Subjective Principal diagnosis: Right hip fracture, preop eval Interval history: S: No complaints. Pain well controlled. O: Afeb, VSS Right thigh dressing is clean, dry, intact. NV intact distally. Calf soft. A: Post right hip hemiarthroplasty P: Resume post op care Orthopedically stable Objective Vital signs: Vital Signs Temp Pulse Resp BP Pulse Ox 08/14/16 08:43 73 108/66 08/14/16 06:46 98.1 F 66 17 110/68 93 08/14/16 03:58 97.9 F 67 15 136/70 97 08/14/16 01:05 97.9 F 77 16 134/72 94 08/13/16 21:00 97.9 F 86 18 131/76 96 08/13/16 14:49 98.0 F 67 18 114/68 95 08/13/16 10:58 97.8 F 83 18 127/83 97 Intake and Output 08/13/16 08/14/16 08/14/16 23:59 07:59 15:59 Intake Total 868 / 868 322 / 322 Output Total 400 / 400 400 / 400 Balance 468 / 468 322 / 322 -400 / -400 Intake: IV Fluids 138 / 138 122 / 122 Heparin 25,000 UNIT/500 138 / 138 122 / 122 ML D5W 25,000 unit In 500 ml @ 14 UNIT/KG/HR 20. 776 mls/hr IVC .Q24H ANDRES Rx#:[id number] Oral 730 / 730 200 / 200 Output: Urine 400 / 400 400 / 400 Other: Meal Dinner Percent of Meal Consumed 100% Stool Size Small Moderate Smear Stool Consistency loose loose Stool Color Brown Brown # Voids 1 # Bowel Movements 1 1 1 Blood Glucose* 184 200 - Labs CBC & BMP: 08/14/16 03:48 08/14/16 03:48 Labs: Abnormal lab results WBC 19.8 K/mcL (4.3-11.1) H D 08/13/16 12:13 Hgb 9.0 g/dL (11.5-15.4) L D 08/14/16 03:48 Hct 28.7 % (35.3-44.9) L 08/14/16 03:48 MCV 78.8 fL (83.0-100.0) L 08/13/16 12:13 MCH 25.9 pg (28.0-33.3) L 08/13/16 12:13 Neutrophils # 16.4 K/mcL (1.6-8.9) H 08/13/16 12:13 Monocytes # 1.9 K/mcL (0.0-1.3) H 08/13/16 12:13 Immature Plt Fraction 6.6 % (1.1-6.1) H 08/13/16 12:13 APTT 40.6 Seconds (26.0-36.0) H D 08/14/16 03:48 Heparin Anti-Xa, Unfract 1.44 IU/mL (0.30-0.70) H* 08/13/16 19:33 BUN 22 mg/dL (7-20) H 08/14/16 03:48 Est GFR (Non-Af Amer) 53 (> 60) L 08/14/16 03:48 Glucose 175 mg/dL (70-99) H 08/14/16 03:48 POC Glucose 177 (58-89) H 08/13/16 16:39 - VTE Documentation of Mechanical Device: Venous foot pump, device Consult Discharge Plan - Plan Referrals: Bella Turk CNP [Primary Care Provider] -
[2016-08-14 15:52] LABS: Basophils % 0.2 %; Eosinophils # 0.2 K/mcL (0.0-0.6); Eosinophils % 1.8 %; Hematocrit 28.1 % (35.3-44.9); Hemoglobin 8.8 g/dL (11.5-15.4); Immature Granulocytes % 1.5 % (0-4); Lymphocytes # 2.4 K/mcL (0.6-4.6); Lymphocytes % 18.6 %; Mean Corpuscular HGB Conc 31.3 g/dL (31.6-35.5); Mean Corpuscular Hemoglobin 26.1 pg (28.0-33.3); Mean Corpuscular Volume 83.4 fL (83.0-100.0); Mean Platelet Volume 10.4 fL (9.4-12.4); Monocytes # 1.5 K/mcL (0.0-1.3); Monocytes % 11.5 %; Neutrophils # 8.6 K/mcL (1.6-8.9); Platelet Count 250 K/mcL (140-400); Red Blood Count 3.37 M/mcL (3.82-4.97); Red Cell Distribution Width 14.3 % (11.5-14.5); Segmented Neutrophils % 66.4 %
--- NOTE | 2016-08-14 16:30 | Event Note ---
Date of Encounter: 08/14/16 Time of Encounter: 11:00 Date of Encounter: 08/14/16 Time of Encounter: 11:00 I examined this patient and my medical decision-making was reviewed with the Resident Physician, Dr De La Fuente. I agree with the documented findings, disposition and treatment plan as described except to the extent set forth below. She reports 0/10 right hip pain at rest, mild to moderate with mobilization. She has been able to sit up in the chair. She has POD 2 status post right hip hemiarthroplasty. On exam she is in no acute distress awake alert oriented. Heart exam reveals regular rate and rhythm S1 and S2 with no murmurs. Lungs are clear to auscultation bilaterally abdomen is soft. Extremities with no edema clubbing or cyanosis. Right hip surgical incision covered with dressing clean dry and intact. No bruising or hematoma, no evidence of bleeding or excessive soft tissue swelling. Hemoglobin was down to 9.0 from 11 yesterday postop and 13 on admission preop. Plan: Right hip fracture status post arthroplasty: Continue PT OT, pain control , DVT prophylaxis. Appreciate orthopedics input. Atrial fibrillation: Continue with heparin drip, switch to oral anticoagulant prior to discharge. Continue with diltiazem. She is currently in sinus rhythm. Acute anemia secondary to blood loss due to surgery: We will monitor hemoglobin and hematocrit every 12 hours. If hemoglobin continues to drop I would hold IV heparin. We will also check stool Hemoccult to rule out GI bleeding. Tobacco abuse: Continue with NicoDerm. DVT prophylaxis: Currently on heparin drip.
--- NOTE | 2016-08-14 16:41 | Internal Med Progress Note ---
Addendum entered and electronically signed by Margaret De La Fuente, 17:58: Patient has not received Rocephin in post-operative period. We will continue to treat UTI with Macrobid 100mg BIDWM x 5 days. Original Note: <Margaret De La Fuente - Last Filed: 08/14/16 17:10> Date of Encounter: 08/14/16 Time of Encounter: 17:10 - Assessment and plan (1) Closed right hip fracture Current Visit: Yes Status: Inactive Assessment and plan: 08/14/16 S/p day#2 repair of right hip Patient doing well Continue pain management 08/13/16 s/p day#1 repair of right hip Patient doing well Pain is well-controlled Continue pain management Restart heparin drip today 08/12/16 Patient had stress test today Gated EF >70%, perfusion imaging negative for ischemia or infarct Cardiology has cleared patient for surgery Ortho plans to take to surgery this afternoon We will resume heparin 18 hours after anesthesia time 08/11/[address] demonstrates mildly displaced right subcapital femur fracture without dislocation Patient is hemodynamically stable with no signs of hematoma or ecchymosis on exam Dr. Phillips has been consulted and plans to perform surgery tomorrow Continue pain management NPO after midnight Qualifiers: Encounter type: initial encounter Qualified Code(s): S72.001A - Fracture of unspecified part of neck of right femur, initial encounter for closed fracture (2) Acute blood loss anemia Current Visit: Yes Status: Acute Assessment and plan: Hb down to 8.8 today from pre-operative Hb of 13.0 Will continue to monitor H&H (3) UTI (urinary tract infection) Current Visit: Yes Status: Acute Assessment and plan: 08/14/16 Leukocytosis is improving Continue Rocephin (day#4) Will need transition to oral antibiotics upon discharge tomorrow Closely monitor 08/13/16 Urine culture positive for Escherichia hermannii sensitive to Rocephin WBC increased to 19.8 today from 11.8 yesterday. Neutrophilia is present. Previous urine culture on 05/21/16 was positive for E. coli with resistance to Ampicillin Continue Rocephin (day#3) Closely monitor 08/12/16 Urine culture positive for gram negative james WBC decreased to 11.8 today from 16.7 yesterday Previous urine culture on 05/21/16 was positive for E. coli with resistance to Ampicillin Continue Rocephin (day#2) 08/11/16 UA with presence of nitrite, leukocyte esterase, WBC, bacteria WBC 16.7 upon presentation to hospital Urine culture pending Previous urine culture on 05/21/16 was positive for E. coli with resistence to Ampicillin Continue Rocephin (day#1) Qualifiers: Urinary tract infection type: site unspecified Hematuria presence: without hematuria Qualified Code(s): N39.0 - Urinary tract infection, site not specified (4) Leukocytosis Current Visit: Yes Status: Acute Assessment and plan: WBC improved from yesterday Will continue Rocephin Will continue to monitor Qualifiers: Leukocytosis type: unspecified Qualified Code(s): D72.829 - Elevated white blood cell count, unspecified (5) A-fib Current Visit: Yes Status: Chronic Assessment and plan: History of Paroxysmal afib CHADs VASC = 7 Continue Heparin drip Continue Diltiazem Qualifiers: Atrial fibrillation type: unspecified Qualified Code(s): I48.91 - Unspecified atrial fibrillation (6) CAD (coronary artery disease) Current Visit: Yes Status: Chronic Assessment and plan: Known CAD Nuclear stress 08/12/16 negative for ischemia or infarct Qualifiers: Coronary Disease-Associated Artery/Lesion type: [place] artery [place] vs. transplanted heart: [place] heart Associated angina: without angina Qualified Code(s): I25.10 - Atherosclerotic heart disease of [place] coronary artery without angina pectoris (7) Diabetes Current Visit: Yes Status: Chronic Assessment and plan: Low dose SS correction ACHS Qualifiers: Diabetes mellitus type: type 2 Diabetes mellitus complication status: with hyperglycemia Diabetes mellitus snf insulin use: with snf use Qualified Code(s): E11.65 - Type 2 diabetes mellitus with hyperglycemia; Z79.4 - residential (current) use of insulin (8) Hypertension Current Visit: Yes Status: Chronic Assessment and plan: Pressures are low at this time 113/63 Continue home dose atenolol Hold home dose of Hyzaar (50/12.5) Continue to monitor Qualifiers: Hypertension type: essential hypertension Qualified Code(s): I10 - Essential (primary) hypertension (9) COPD (chronic obstructive pulmonary disease) Current Visit: Yes Status: Chronic Assessment and plan: Continue home dose of Spiriva and Montelukast O2 supplementation as needed Qualifiers: COPD type: unspecified COPD Qualified Code(s): J44.9 - Chronic obstructive pulmonary disease, unspecified (10) Diastolic CHF Current Visit: Yes Status: Chronic Assessment and plan: Patient is euvolemic on exam Continue Lasix 20mg po daily Qualifiers: Congestive heart failure chronicity: chronic Qualified Code(s): I50.32 - Chronic diastolic (congestive) heart failure (11) Hypokalemia Current Visit: Yes Status: Resolved Assessment and plan: Resolved Continue to monitor (12) Constipation Current Visit: Yes Status: Resolved Assessment and plan: Resolved Continue Colace BID scheduled Qualifiers: Constipation type: unspecified constipation type Qualified Code(s): K59.00 - Constipation, unspecified (13) History of CVA with residual deficit Current Visit: Yes Status: Chronic Assessment and plan: Continue Plavix (14) DVT prophylaxis Current Visit: Yes Status: Acute Assessment and plan: Patient on Heparin drip for therapeutic coverage due to afib with CHADs VASC=7 - Subjective Interval history: 08/14/16 Patient doing well. States that she is having right hip soreness today worse than yesterday. Doing well with therapy. Having bowel movements. No other complaints. 08/13/16 Patient doing well this morning. States that she only has pain when she moves. Complains of constipation today. Complains that she cannot reach the floor with her right foot, but she can with her right. No chest pain or dyspnea. 08/12/16 Patient states that she is doing well this morning. Had nuclear stress today Gated EF >70%, perfusion imaging negative for ischemia or infarct. Cardiology stated that patient is acceptable risk to proceed with orthopedic surgery. Dr. Phillips was notified. Patient scheduled for surgery at 15:30 today. - Constitutional Vitals: Temp Pulse Resp BP Pulse Ox 97.7 F 64 16 113/63 96 08/14/16 15:04 08/14/16 15:04 08/14/16 15:04 08/14/16 15:04 08/14/16 15:04 General appearance: Present: cooperative, A&O X 3, no acute distress, answers questions appropriately - Head Head exam: Present: atraumatic, normocephalic - Eye Eye exam: Present: PERRL, sclera anicteric. Absent: conjuntiva pink (pale conjunctiva) Pupils: Present: PERRL - Neck Neck exam general surgery: Present: supple, trachea midline. Absent: lymphadenopathy - Respiratory Respiratory exam: Present: CTAB. Absent: accessory muscle use, rales, rhonchi, wheezes - Cardiovascular Cardiovascular exam: Present: irregular rhythm, +S1, +S2, systolic murmur. Absent: diastolic murmur, gallop, rubs - GI/Abdominal GI/Abdominal exam: Present: normal bowel sounds, soft, no peritoneal signs. Absent: distended, tenderness - Extremities Exam Extremities exam: Present: warm, radial pulses palpable and symetrical ( irregular). Absent: calf tenderness, cyanotic, pedal edema Additional comments: Right hip with non-pitting edema Surgical scar with dressing containing scant drainage Mild erythema around incision Small sized ecchymosis present - Neurological Exam Neurological exam: Present: CN II-XII intact, oriented X3, no focal deficits. Absent: facial droop, speech deficit - Skin Skin exam: Present: dry, intact Internal Medicine: Result - Labs CBC & Chem 7: 08/14/16 15:39 08/14/16 03:48 Labs: Short CBC 08/14/16 08/14/16 Range/Units 03:48 15:39 WBC 13.0 H (4.3-11.1) K/mcL Hgb 9.0 L D 8.8 L (11.5-15.4) g/dL Hct 28.7 L 28.1 L (35.3-44.9) % Plt Count 250 (140-400) K/mcL Neutrophils # 8.6 (1.6-8.9) K/mcL BMP 08/14/16 03:48 Sodium 137 Potassium 3.9 Chloride 107 Carbon Dioxide 23 BUN 22 H Creatinine 1.03 Glucose 175 H Calcium 8.7 - ABG Interpretation ABG results: PT/INR, D-dimer PT 11.8 Seconds (9.4-12.1) 08/13/16 12:02 - VTE Documentation of Mechanical Device: Venous foot pump, device Consult Discharge Plan - Plan Referrals: Bella Turk CNP [Primary Care Provider] - <Javier Marti - Last Filed: 08/15/16 07:21> Date of Encounter: 08/14/16 - Constitutional Vitals: Temp Pulse Resp BP Pulse Ox 98.5 F 68 18 132/71 97 08/15/16 06:24 08/15/16 06:24 08/15/16 06:24 08/15/16 06:24 08/15/16 06:24 Internal Medicine: Result - Labs CBC & Chem 7: 08/15/16 00:59 08/15/16 00:59 Labs: Short CBC 08/14/16 08/15/16 Range/Units 15:39 00:59 WBC 13.0 H 11.1 (4.3-11.1) K/mcL Hgb 8.8 L 8.4 L (11.5-15.4) g/dL Hct 28.1 L 26.1 L (35.3-44.9) % Plt Count 250 232 (140-400) K/mcL Neutrophils # 8.6 6.9 (1.6-8.9) K/mcL BMP 08/15/16 00:59 Sodium 138 Potassium 3.8 Chloride 107 Carbon Dioxide 24 BUN 23 H Creatinine 1.09 Glucose 163 H Calcium 8.5 L - ABG Interpretation ABG results: PT/INR, D-dimer PT 11.8 Seconds (9.4-12.1) 08/13/16 12:02 - Attending Attestation I examined this patient on 08/14/2016 and my medical decision-making was reviewed with the Resident Physician, Dr. Margaret De La Fuente. I agree with the documented findings, disposition and treatment plan as described except to the extent set forth below. Please see event note for the date of service. Patient was started on heparin drip postoperatively. We will monitor hemoglobin and hematocrit closely. Check stool Hemoccult.
[2016-08-14] MEDS: Heparin 25,000 UNIT/500 ML D5W 25,000 UNIT/500 ML MLS IVC SCH ×2 (18:10→20:11)
[2016-08-14] MEDS: Temazepam 15 MG CAPSULE PO PRN (22:47)
[2016-08-15 01:07] LABS: Basophils % 0.3 %; Eosinophils # 0.3 K/mcL (0.0-0.6); Eosinophils % 2.3 %; Hematocrit 26.1 % (35.3-44.9); Hemoglobin 8.4 g/dL (11.5-15.4); Immature Granulocytes % 1.6 % (0-4); Lymphocytes # 2.4 K/mcL (0.6-4.6); Lymphocytes % 21.6 %; Mean Corpuscular HGB Conc 32.2 g/dL (31.6-35.5); Mean Corpuscular Hemoglobin 26.4 pg (28.0-33.3); Mean Corpuscular Volume 82.1 fL (83.0-100.0); Mean Platelet Volume 10.3 fL (9.4-12.4); Monocytes # 1.4 K/mcL (0.0-1.3); Monocytes % 12.2 %; Neutrophils # 6.9 K/mcL (1.6-8.9); Nucleated Red Blood Cells 0.3 /100 WBC (0); Platelet Count 232 K/mcL (140-400); Red Blood Count 3.18 M/mcL (3.82-4.97); Red Cell Distribution Width 14.4 % (11.5-14.5)
[2016-08-15 01:22] LABS: Calcium 8.5 mg/dL (8.6-10.8); Potassium 3.8 mEq/L (3.5-4.5)
[2016-08-15] MEDS: *HR* Heparin 5,000 UNIT/ML VIAL IVP PRN (04:52)
--- NOTE | 2016-08-15 06:30 | Orthopedics Progress Note ---
Date of Encounter: 08/15/16 Time of Encounter: 06:29 Subjective Principal diagnosis: Right hip fracture, preop eval Interval history: Patient was seen this morning doing well without complaints. Afebrile vital signs stable. Operative extremity: Neurovascularly intact Dressing clean dry and intact Calves nontender Assessment and plan: Continue with postoperative care Stable for discharge Objective Vital signs: Vital Signs Temp Pulse Resp BP Pulse Ox 08/15/16 06:24 98.5 F 68 18 132/71 97 08/15/16 00:18 98.1 F 69 14 119/72 96 08/14/16 20:00 97.9 F 67 16 136/69 96 08/14/16 15:04 97.7 F 64 16 113/63 96 08/14/16 12:04 97.8 F 63 16 103/65 96 08/14/16 08:43 73 108/66 08/14/16 06:46 98.1 F 66 17 110/68 93 Intake and Output 08/14/16 08/14/16 08/15/16 15:59 23:59 07:59 Intake Total 612 / 612 108 / 108 663 / 663 Output Total 900 / 900 1050 / 1050 Balance -288 / -288 108 / 108 -387 / -387 Intake: IV Fluids 132 / 132 108 / 108 263 / 263 Heparin 25,000 UNIT/500 132 / 132 108 / 108 263 / 263 ML D5W 25,000 unit In 500 ml @ 14 UNIT/KG/HR 20. 776 mls/hr IVC .Q24H ANDRES Rx#:[id number] Oral 480 / 480 400 / 400 Output: Urine 900 / 900 1050 / 1050 Other: Meal Lunch Dinner Percent of Meal Consumed 100% 100% Stool Size Small Small Stool Consistency loose loose Stool Color Brown # Bowel Movements 1 Blood Glucose* 163 - Labs CBC & BMP: 08/15/16 00:59 08/15/16 00:59 Labs: Abnormal lab results RBC 3.18 M/mcL (3.82-4.97) L 08/15/16 00:59 Hgb 8.4 g/dL (11.5-15.4) L 08/15/16 00:59 Hct 26.1 % (35.3-44.9) L 08/15/16 00:59 MCV 82.1 fL (83.0-100.0) L 08/15/16 00:59 MCH 26.4 pg (28.0-33.3) L 08/15/16 00:59 Monocytes # 1.4 K/mcL (0.0-1.3) H 08/15/16 00:59 Nucleated RBCs/100 WBC 0.3 /100 WBC (0) H 08/15/16 00:59 Immature Plt Fraction 6.6 % (1.1-6.1) H 08/13/16 12:13 APTT 52.0 Seconds (26.0-36.0) H 08/15/16 00:59 Heparin Anti-Xa, Unfract 1.44 IU/mL (0.30-0.70) H* 08/13/16 19:33 BUN 23 mg/dL (7-20) H 08/15/16 00:59 Est GFR (Non-Af Amer) 49 (> 60) L 08/15/16 00:59 Glucose 163 mg/dL (70-99) H 08/15/16 00:59 POC Glucose 151 (58-89) H 08/14/16 16:02 Calcium 8.5 mg/dL (8.6-10.8) L 08/15/16 00:59 - VTE Documentation of Mechanical Device: Venous foot pump, device Consult Discharge Plan - Plan Referrals: Bella Turk CNP [Primary Care Provider] -
[2016-08-15] MEDS: Insulin LISPRO 300 UNITS/3 ML VIAL SQ SCH ×4 (07:46→21:11)
[2016-08-15] MEDS: Multivit/Ca/Min/Fe/FA 1 TAB TABLET PO SCH (07:46)
[2016-08-15] MEDS: Gabapentin 300 MG CAPSULE PO SCH ×2 (07:46→21:08)
[2016-08-15] MEDS: Diltiazem CD (24hr) 120 MG CAPSULE PO SCH (07:46)
[2016-08-15] MEDS: Ascorbic Acid 500 MG TABLET PO SCH ×2 (07:47→17:14)
[2016-08-15] MEDS: Nitrofurantoin (BID) 100 MG CAPSULE PO SCH ×2 (07:47→17:14)
[2016-08-15] MEDS: Patient Taking Own Medication 1 EACH IH SCH (07:48)
[2016-08-15] MEDS: Furosemide 20 MG TABLET PO SCH (07:48)
[2016-08-15] MEDS: Fluticasone Propionate Nasal 50 MCG/SPRAY BOTTLE NS SCH ×2 (07:48→21:11)
[2016-08-15 15:27] LABS: Hematocrit 26.3 % (35.3-44.9); Hemoglobin 8.4 g/dL (11.5-15.4); Mean Corpuscular HGB Conc 31.9 g/dL (31.6-35.5); Mean Corpuscular Hemoglobin 26.4 pg (28.0-33.3); Mean Corpuscular Volume 82.7 fL (83.0-100.0); Mean Platelet Volume 9.7 fL (9.4-12.4); Platelet Count 255 K/mcL (140-400); Red Blood Count 3.18 M/mcL (3.82-4.97); Red Cell Distribution Width 14.4 % (11.5-14.5)
--- NOTE | 2016-08-15 16:10 | Discharge Summary ---
Date of Encounter: 08/15/16 Time of Encounter: 16:04 - Discharge Diagnosis (1) Femoral neck fracture Priority: Primary Status: Acute Qualifiers: Encounter type: initial encounter Fracture type: closed Laterality: right Qualified Code(s): S72.001A - Fracture of unspecified part of neck of right femur, initial encounter for closed fracture (2) Tobacco abuse disorder Priority: Secondary Status: Acute (3) Hypertension Priority: Secondary Status: Chronic Qualifiers: Hypertension type: essential hypertension Qualified Code(s): I10 - Essential (primary) hypertension (4) CAD (coronary artery disease) Priority: Secondary Status: Chronic Qualifiers: Coronary Disease-Associated Artery/Lesion type: [place] artery [place] vs. transplanted heart: [place] heart Associated angina: without angina Qualified Code(s): I25.10 - Atherosclerotic heart disease of [place] coronary artery without angina pectoris (5) UTI (urinary tract infection) Priority: Secondary Status: Acute Qualifiers: Urinary tract infection type: site unspecified Hematuria presence: without hematuria Qualified Code(s): N39.0 - Urinary tract infection, site not specified (6) Paroxysmal atrial fibrillation Priority: Secondary Status: Chronic (7) COPD (chronic obstructive pulmonary disease) Priority: Secondary Status: Chronic Qualifiers: COPD type: unspecified COPD Qualified Code(s): J44.9 - Chronic obstructive pulmonary disease, unspecified (8) Type II diabetes mellitus Priority: Secondary Status: Chronic Qualifiers: Diabetes mellitus complication status: without complication Diabetes mellitus watermelon inspector insulin use: with halfway use Qualified Code(s): E11.9 - Type 2 diabetes mellitus without complications; Z79.4 - [facility] (current) use of insulin (9) Acute blood loss anemia Priority: Secondary Status: Acute - Discharge Medications Prescriptions: HYDROcodone/Acet 5/325 mg [[employer] 5-325 mg] 1 tab PO Q4HR PRN #30 tablet PRN Reason: Moderate Pain (4-6) Home Medications: Furosemide [Lasix] 20 mg PO DAILY 11/15/14 [History] Insulin NPH Hum/Reg Insulin Hm [Novolin 70-30 100 Unit/ml Vial] 20 unit SQ BID PRN 11/15/14 [History] Montelukast Sodium 10 mg PO HS 11/15/14 [History] Potassium Chloride 10 meq PO BID 11/15/14 [History] Atenolol [Tenormin] 25 mg PO BID #60 tablet 12/06/14 [Rx] Diltiazem CD (24hr) [Cardizem CD] 120 mg PO DAILY 06/02/15 [History] Tiotropium [place] [Spiriva Respimat] 2.5 mg IH DAILY 06/02/15 [History] Fluticasone Propionate Nasal [Flonase] 1 spray NS BID 04/14/16 [History] Gabapentin [Neurontin] 600 mg PO BID 04/14/16 [History] Levothyroxine [Synthroid] 88 mcg PO DAILY 04/14/16 [History] Pravastatin Sodium [Pravachol] 20 mg PO DAILY 04/14/16 [History] Meloxicam 15 mg PO DAILY 07/15/16 [History] Amitriptyline [Elavil] 25 mg PO HS 08/11/16 [History] Cholecalciferol (Vitamin D3) [Vitamin D3] 50,000 unit PO QWEEK 08/11/16 [History ] Clopidogrel [Plavix] 75 mg PO DAILY 08/11/16 [History] Cyclobenzaprine HCl 5 mg PO DAILY 08/11/16 [History] Spiriva 2.5 mcg IH BID 08/11/16 [History] Docusate [Colace] 100 mg PO BID capsule 08/15/16 [Rx] Ferrous Sulfate 325 mg PO BIDWM tablet 08/15/16 [Rx] HYDROcodone/Acet 5/325 mg [[employer] 5-325 mg] 1 tab PO Q4HR PRN #30 tablet [Rx] Multivit/Ca/Min/Fe/FA [Thera M Plus] 1 tab PO DAILY tablet 08/15/16 [Rx] Nitrofurantoin (BID) [Macrobid] 100 mg PO BIDWM #14 capsule 08/15/16 [Rx] Rivaroxaban [Xarelto] 20 mg PO DAILY #0 08/15/16 [Rx] Allergies/Adverse Reactions: Allergies No Known Allergies Allergy (Verified 07/15/16 11:09) Date of admission: 08/11/16 06:44 Primary care physician: Bella Turk, Consults: 08/11/16 05:03 Consult to Physical Therapy [CONS] Routine Comment: Evaluate, develop and implement POC Reason for Consult: Right hip fracture OT [Consult to Occupational Therapy] [CONS] Routine Comment: Evaluate, develop and implement POC Reason for Consult: Right hip fracture. 08/11/16 06:46 Consult to Cardiology [CONS] Routine Comment: Consulting Provider: Leobardo Valentin Reason for Consult: Presurgical evaluation Call Completed: No 08/12/16 18:09 Consult to Nurse Navigator [CONS] Routine Comment: ortho navigator Consult to Occupational Therapy [CONS] Routine Comment: Evaluate, develop and implement POC Reason for Consult: total hip replacement Consult to Physical Therapy [CONS] Routine Comment: Evaluate, develop and implement POC Reason for Consult: total hip replacement Consult to Side Hemmer [CONS] Routine Reason for SW Consult: post op joint replacement RT Post Op Consult [CONS] Routine - Patient Status Disposition: Transfer Inpatient Rehab Fac Condition: Fair Functional capacity at discharge: uses cane/walker Overall status at discharge: patient is progressing back to baseline - Discharge Instructions Follow Up With: Bella Turk CNP [Primary Care Provider] - - Diet and Activity Activity: as per physical therapy Diet: advance to your usual diet, diabetic diet, low fat, low cholesterol, low salt diet Hospital course: Ms. Celaya is a 71 year old female with multiple medical comorbidities including diabetes, CAD, atrial fibrillation on anticoagulation, COPD and tobacco abuse who presented to the hospital transferred from [facility] for evaluation of hip pain. The patient had suffered a fall at home after she tripped and fell landing on her right side. Her imaging studies revealed a new subcapital, nondisplaced right femur fracture. She was transferred to our hospital and admitted to the medical service. Orthopedics service and cardiology were consulted. As part of preoperative evaluation here she had a stress test which was negative for ischemia. She had right hemiarthroplasty done on 08/12/2016. Preprocedure she was anticoagulated with heparin drip whilst her oral anticoagulant was stopped. She tolerated the procedure well. She had moderate postoperative anemia secondary to blood loss. She did not require blood transfusion. Her hemoglobin has been stable over the last 24 hours, the last read being 8.4. She will be prescribed ferrous sulfate. We recommend obtaining a stool Hemoccult at the [facility] to evaluate for possible occult GI bleeding. This has been attempted but not yet collected during this admission. She has on her postoperative day 3 and has been tolerating physical therapy. Her operative state of site shows no signs of complications. Her pain is well controlled with oral pain medication and she is medically stable for discharge to inpatient rehabilitation. I have advised smoking cessation and providing counseling. The patient expressedunderstanding and agreement with the discharge planning. - Time Spent with Patient Total time spent providing and/or coordinating discharge services: Greater than 30 minutes (I have spent 45 minutes coordinating this discharge.) - Constitutional Vitals: Temp Pulse Resp BP Pulse Ox 98.6 F 76 18 144/69 96 08/15/16 14:00 08/15/16 14:00 08/15/16 14:00 08/15/16 14:00 08/15/16 14:00 General appearance: Present: cooperative, A&O X 3, no acute distress, answers questions appropriately - Respiratory Respiratory exam: Present: CTAB. Absent: accessory muscle use, rales, rhonchi, wheezes - Cardiovascular Cardiovascular exam: Present: RRR, +S1, +S2. Absent: diastolic murmur, gallop, rubs, systolic murmur - GI/Abdominal GI/Abdominal exam: Present: normal bowel sounds, soft, no peritoneal signs. Absent: distended, tenderness - Extremities Exam Extremities exam: Present: warm, radial pulses palpable and symetrical. Absent : calf tenderness, cyanotic, pedal edema - VTE Documentation of Mechanical Device: Venous foot pump, device
--- NOTE | 2016-08-15 18:24 | Physician Discharge Referral ---
ExtendedCare Referral Info Transfer To: Acute rehabilitation Provider in Charge after Transfer: PCP Institutional Level of Care: Skilled - Diagnosis (1) Femoral neck fracture Status: Acute (2) Tobacco abuse disorder Status: Acute (3) Hypertension Status: Chronic (4) CAD (coronary artery disease) Status: Chronic (5) UTI (urinary tract infection) Status: Acute (6) Paroxysmal atrial fibrillation Status: Chronic (7) COPD (chronic obstructive pulmonary disease) Status: Chronic (8) Type II diabetes mellitus Status: Chronic (9) Acute blood loss anemia Status: Acute - Transfer Medications Prescriptions: HYDROcodone/Acet 5/325 mg [[place] 5-325 mg] 1 tab PO Q4HR PRN #30 tablet PRN Reason: Moderate Pain (4-6) Home Medications: Furosemide [Lasix] 20 mg PO DAILY 11/15/14 [History] Insulin NPH Hum/Reg Insulin Hm [Novolin 70-30 100 Unit/ml Vial] 20 unit SQ BID PRN 11/15/14 [History] Montelukast Sodium 10 mg PO HS 11/15/14 [History] Potassium Chloride 10 meq PO BID 11/15/14 [History] Atenolol [Tenormin] 25 mg PO BID #60 tablet 12/06/14 [Rx] Diltiazem CD (24hr) [Cardizem CD] 120 mg PO DAILY 06/02/15 [History] Tiotropium [place] [Spiriva Respimat] 2.5 mg IH DAILY 06/02/15 [History] Fluticasone Propionate Nasal [Flonase] 1 spray NS BID 04/14/16 [History] Gabapentin [Neurontin] 600 mg PO BID 04/14/16 [History] Levothyroxine [Synthroid] 88 mcg PO DAILY 04/14/16 [History] Pravastatin Sodium [Pravachol] 20 mg PO DAILY 04/14/16 [History] Meloxicam 15 mg PO DAILY 07/15/16 [History] Amitriptyline [Elavil] 25 mg PO HS 08/11/16 [History] Cholecalciferol (Vitamin D3) [Vitamin D3] 50,000 unit PO QWEEK 08/11/16 [History ] Clopidogrel [Plavix] 75 mg PO DAILY 08/11/16 [History] Cyclobenzaprine HCl 5 mg PO DAILY 08/11/16 [History] Spiriva 2.5 mcg IH BID 08/11/16 [History] Docusate [Colace] 100 mg PO BID capsule 08/15/16 [Rx] Ferrous Sulfate 325 mg PO BIDWM tablet 08/15/16 [Rx] HYDROcodone/Acet 5/325 mg [[place] 5-325 mg] 1 tab PO Q4HR PRN #30 tablet [Rx] Multivit/Ca/Min/Fe/FA [Thera M Plus] 1 tab PO DAILY tablet 08/15/16 [Rx] Nitrofurantoin (BID) [Macrobid] 100 mg PO BIDWM #14 capsule 08/15/16 [Rx] Rivaroxaban [Xarelto] 20 mg PO DAILY #0 08/15/16 [Rx] Allergies/Adverse Reactions: Allergies No Known Allergies Allergy (Verified 07/15/16 11:09) - Respiratory Orders Smoking Cessation: Smoking cessation has been advised. For more information, call the [employer] Tobacco Quit Line at 0-700-XNOI-NOW. - Advance Directives Living Will: Yes Power of Event Coordinator Marketing And Sales: Yes Code Status: Full Code - Mobility Orders Ambulate - Rehabiliation Orders Rehab Potential: Good Rehab Orders: Evaluation for Physical Therapy, Evaluation for Occupational Therapy - Treatments Skin tear care topically daily PRN per policy - Diet Orders No Concentrated Sweets, Cardiac CERTIFICATION: I certify that the transfer of the above named patient to an Extended Care Facility is necessary for the continuing treatment of the diagnosis listed. The above information is true and accurate reflection of patient's current condition. Confidential - Redisclosure prohibited without a patient's written consent.
[2016-08-15] MEDS: *HR* Rivaroxaban 10 MG TABLET PO SCH (21:08)
[2016-08-15] MEDS: *HR* HYDROcodone/Acet 5/325 mg TABLET PO PRN (21:09)
[2016-08-16] MEDS: *HR* HYDROcodone/Acet 5/325 mg TABLET PO PRN (05:54)
[2016-08-16 06:33] LABS: Basophils % 0.3 %; Eosinophils # 0.3 K/mcL (0.0-0.6); Eosinophils % 2.7 %; Hematocrit 28.7 % (35.3-44.9); Hemoglobin 8.8 g/dL (11.5-15.4); Immature Granulocytes % 4.1 % (0-4); Lymphocytes # 1.7 K/mcL (0.6-4.6); Lymphocytes % 16.4 %; Mean Corpuscular HGB Conc 30.7 g/dL (31.6-35.5); Mean Corpuscular Hemoglobin 25.5 pg (28.0-33.3); Mean Corpuscular Volume 83.2 fL (83.0-100.0); Mean Platelet Volume 10.3 fL (9.4-12.4); Monocytes # 1.2 K/mcL (0.0-1.3); Monocytes % 11.1 %; Neutrophils # 6.9 K/mcL (1.6-8.9); Nucleated Red Blood Cells 0.5 /100 WBC (0); Platelet Count 274 K/mcL (140-400); Red Blood Count 3.45 M/mcL (3.82-4.97); Red Cell Distribution Width 14.5 % (11.5-14.5); Segmented Neutrophils % 65.4 %
[2016-08-16 06:40] LABS: Blood Urea Nitrogen 19 mg/dL (7-20); Carbon Dioxide 26 mEq/L (19-29); Chloride 104 mEq/L (98-109); Potassium 3.6 mEq/L (3.5-4.5); Sodium 138 mEq/L (136-145)
[2016-08-16 06:41] LABS: BUN/Creatinine Ratio 24 (6-26); Calcium 8.6 mg/dL (8.6-10.8); Glucose 127 mg/dL (70-99); Osmolality,Calculated 290 (280-300); eGFR For African Americans > 60 (> 60); eGFR For Non-African Americans > 60 (> 60)
[2016-08-16] MEDS: Insulin LISPRO 300 UNITS/3 ML VIAL SQ SCH ×4 (08:16→20:11)
[2016-08-16] MEDS: Multivit/Ca/Min/Fe/FA 1 TAB TABLET PO SCH (08:17)
[2016-08-16] MEDS: Ascorbic Acid 500 MG TABLET PO SCH ×2 (08:17→17:32)
[2016-08-16] MEDS: Diltiazem CD (24hr) 120 MG CAPSULE PO SCH (08:17)
[2016-08-16] MEDS: Nitrofurantoin (BID) 100 MG CAPSULE PO SCH ×2 (08:17→17:33)
[2016-08-16] MEDS: Furosemide 20 MG TABLET PO SCH (08:18)
[2016-08-16] MEDS: Fluticasone Propionate Nasal 50 MCG/SPRAY BOTTLE NS SCH ×2 (08:18→20:07)
[2016-08-16] MEDS: Gabapentin 300 MG CAPSULE PO SCH ×2 (08:18→20:05)
[2016-08-16] MEDS: Patient Taking Own Medication 1 EACH IH SCH (08:19)
[2016-08-16] MEDS: MOM Conc 10 ML UD.LIQ PO PRN (09:38)
[2016-08-16] MEDS: *HR* Rivaroxaban 10 MG TABLET PO SCH (17:32)
[2016-08-17] MEDS: Patient Taking Own Medication 1 EACH IH SCH (07:37)
[2016-08-17] MEDS: Insulin LISPRO 300 UNITS/3 ML VIAL SQ SCH ×4 (07:51→21:11)
[2016-08-17] MEDS: Fluticasone Propionate Nasal 50 MCG/SPRAY BOTTLE NS SCH ×2 (07:51→21:11)
[2016-08-17] MEDS: Ascorbic Acid 500 MG TABLET PO SCH ×2 (07:52→17:00)
[2016-08-17] MEDS: Gabapentin 300 MG CAPSULE PO SCH ×2 (07:52→21:10)
[2016-08-17] MEDS: Multivit/Ca/Min/Fe/FA 1 TAB TABLET PO SCH (07:52)
[2016-08-17] MEDS: Diltiazem CD (24hr) 120 MG CAPSULE PO SCH (07:52)
[2016-08-17] MEDS: Furosemide 20 MG TABLET PO SCH (07:52)
[2016-08-17] MEDS: Nitrofurantoin (BID) 100 MG CAPSULE PO SCH ×2 (07:52→17:00)
[2016-08-17] MEDS: *HR* HYDROcodone/Acet 5/325 mg TABLET PO PRN ×2 (10:28→17:12)
[2016-08-17] MEDS: *HR* Rivaroxaban 10 MG TABLET PO SCH (17:00)
--- NOTE | 2016-08-17 17:03 | Event Note ---
Date of Encounter: 08/17/16 Time of Encounter: 17:02 riat has been discharged from medicine on 08/15 awaiting social work for placement.
[2016-08-17] MEDS: MOM Conc 10 ML UD.LIQ PO PRN (17:12)
[2016-08-18] MEDS: *HR* HYDROcodone/Acet 5/325 mg TABLET PO PRN ×2 (01:15→14:32)
[2016-08-18] MEDS: Insulin LISPRO 300 UNITS/3 ML VIAL SQ SCH ×2 (08:00→12:23)
[2016-08-18] MEDS: Gabapentin 300 MG CAPSULE PO SCH (08:02)
[2016-08-18] MEDS: Diltiazem CD (24hr) 120 MG CAPSULE PO SCH (08:02)
[2016-08-18] MEDS: Furosemide 20 MG TABLET PO SCH (08:03)
[2016-08-18] MEDS: Nitrofurantoin (BID) 100 MG CAPSULE PO SCH (08:03)
[2016-08-18] MEDS: Ascorbic Acid 500 MG TABLET PO SCH (08:03)
[2016-08-18] MEDS: Patient Taking Own Medication 1 EACH IH SCH (08:03)
[2016-08-18] MEDS: Multivit/Ca/Min/Fe/FA 1 TAB TABLET PO SCH (08:03)
[2016-08-18] MEDS: Fluticasone Propionate Nasal 50 MCG/SPRAY BOTTLE NS SCH (08:04)
[2016-08-18 11:22] VITALS: BP 104/67
== END 2016-08-18 14:50 | DRG 301 ==
LOC: 3NENU
PROVIDERS: ADMIT Internal Medicine; ATTEND Internal Medicine

== ENCOUNTER 2018-11-22 10:12 | Inpatient (IN) ==
[2018-11-22] MEDS ORDERED: *HR* PHENYLEPHRINE 1,000 MCG/10 ML SYRINGE IVP ONE (10:18)
[2018-11-22] MEDS ORDERED: Lidocaine -MPF 2% 2 ML VIAL ONE (10:19)
[2018-11-22] MEDS ORDERED: *HR* Propofol 200 MG/20 ML VIAL IVP ONE (10:19)
[2018-11-22] MEDS ORDERED: *HR* FentaNYL (PF) 100 MCG/2 ML VIAL ONE (10:19)
[2018-11-22] MEDS ORDERED: *HR* Rocuronium Bromide 50 MG/5 ML VIAL ONE (10:19)
[2018-11-22] MEDS ORDERED: Dexamethasone 4 MG/ML VIAL ONE (10:19)
[2018-11-22] MEDS ORDERED: Ondansetron 4 MG/2 ML VIAL ONE (10:19)
[2018-11-22] MEDS ORDERED: *HR* Succinylcholine 200 MG/10 ML VIAL IVP ONE (10:19)
[2018-11-22] MEDS ORDERED: Albuterol 2.5 MG/3 ML NEBULIZER ONE (10:45)
--- NOTE | 2018-11-22 10:49 | Anesthesia Evaluation PreOp ---
Date of Encounter: 11/22/18 Time of Encounter: 10:46 - Past History Planned Operation: bronchoscopy/EGD Cardiac History: CHF, HTN, Hyperlipidemia Pulmonary History: Former smoker, COPD Other Medical History: Renal (CKD stage3), Diabetes Type II, GERD, Other (hx head/neck cancer, hx colon cancer) Anesthesia History: No Prior Anesthetic Complications, Past Anesthesia (PEG tube, tubal, thyroidectomy, Mixon's procedure with colostomy, right chacha hip) Alcohol Use: none Drug use: none Medications and Allergies Doxycycline 100 mg PO BID #20 capsule 11/17/18 [Rx] Ondansetron ODT [Zofran ODT] 4 mg PO TID #12 tab.rapdis 11/17/18 [Rx] Allergy/AdvReac Type Severity Reaction Status Date / Time No Known Allergies Allergy Verified 10/03/18 07:40 - Meds/Allergy Pre-op Review Medications Reviewed: Yes Allergies Reviewed: Yes Beta Blockers on Current Med List: Yes If Beta Blockers taken, Date/Time (Last Dose taken): 8-14 at 2000hrs Anesthesia Results - Labs Laboratory Tests 11/17/18 11/17/18 18:26 18:26 Hgb 14.1 Hct 43.0 Plt Count 313 Sodium 138 Potassium 4.2 BUN 10 Creatinine 0.93 - Imaging EKG: report reviewed (Atrial fibrillation Nonspecific ST and T changes) Additional studies: echo: Impressions: LVEF 60%. Normal LV chamber size and function. Basal sigmoid septum. Indeterminate diastolic function. Normal right ventricular structure and function. Mild tricuspid regurgitation. Borderline mild pulmonary hypertension. Anesthesia Exam Weight: 67kg NPO (# of Hours): 8 - HEENT Pupil (Motor): EOMI Mallampati: II Teeth: Edentulous Oral Opening: Greater than 3 - APPLICATIONS SUPPORT ANALYST LOC: Oriented APPLICATIONS SUPPORT ANALYST Motor: Normal RUE, Normal LUE, Normal RLE, Normal LLE, Normal Face APPLICATIONS SUPPORT ANALYST Sensory: Normal: RUE, LUE, RLE, LLE, Face - Cardiac Rhythm: Irregular Murmur: None - Pulmonary Breath Sounds: bilateral Clear (diffuse wheezes all manzo both inspir and expir) Respiratory Effort: Symmetrical - Additional Findings hoarse voice Anesthesia Assess/Plan ASA Score: 4 Level of consciousness: Cooperative, Oriented Anesthetic Plan: General Monitoring Plan: Standard Monitors Recovery Plan: PACU (Patient will probably need GA for both these procedures)
[2018-11-22] MEDS ORDERED: Ringers Solution, Lactated 1,000 ML IVC SCH (11:00)
--- NOTE | 2018-11-22 12:49 | Event Note ---
Date of Encounter: 11/22/18 Time of Encounter: 12:47 EGD procedure performed. Noted between 18 and 24 cm from the incisors an area of ulceration in the esophagus with friability, necrotic appearing tissue. Biopsies obtained. Irregular Z line with biopsies obtained. Severe erythema noted in the antrum biopsies and close tests obtain. Duodenum appeared normal. Discussed with Dr. Marcano who performed a bronchoscopy following the EGD (with E-bus) and there was concern that the mass effect seen by CT scan and my EGD findings may be related to a primary esophageal cancer. He will contact the hospitalist for admission and I have contacted thoracic surgery for consultation.
[2018-11-22 13:40] LABS: Source of Body Fluid Right Lung
[2018-11-22] MEDS ORDERED: *HR* EPINEPHrine 1 MG/10 ML SYRINGE ONE (14:04)
--- NOTE | 2018-11-22 15:03 | Internal Med History&Physical ---
<Rahul Jade Monse - Last Filed: 11/22/18 15:44> Date of Encounter: 11/22/18 Time of Encounter: 15:02 Internal Medicine - H&P: HPI Chief complaint: dysphagia History of present illness: Ms. Celaya is a 73 year old female with past medical history of COPD, Afib, HF, thyroid, HTN, and DM presents for dysphagia of "years". Pt poor historian, daughter in room to assist. Reports gradual dysphagia and one episode of choking on a chicken bone- esophageal mass/lesion was noticed upon retrieval. Daughter reports reports nausea and vomiting and occasional hemoptysis leading to further evaluation via EGD. 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 Pt with history of COPD, seen recently on 11/17 for exacerbation. Chart review shows history of dyspnea and bronchitis. Former smoker, does not wear O2 at home. Pt uses walker to ambulate at home. Vitals noted T:100F, HR:86 and regular, RR:24, BP:131/73, SpO2:97%. Glucose noted 103 prior to procedure. Pt seen and examined, no distress at this moment. Pt on 2.5L at time of interview. Pt endorses trouble swallowing, denies chest pain, shortness of breath at this time. Denies nausea, vomiting, changes in bowel. Denies hematemesis, melena, hematochezia. Hemoptysis evident, likely from EBUS. Past Medical Hx: COPD, afib, HFpEF, hypothyroid, HTN, DM Past Surgical Hx: prior colon resection d/t colon cancer with reversed colostomy Social Hx: former smoker 1/2 ppd, quit 10-15 years ago; denies alcohol or drug use Family Hx: mother significant for heart disease and diabetes Previous Cardiac Workup: Echo 10/19/18: LVEF 60%, indeterminate diastolic function FULL CODE Past Med Surg Social Fam HX - Past Medical History Medical history: arthritis, asthma, atrial fibrillation, cancer, CHF, COPD, coronary artery disease, CVA, diabetes, GERD, hyperlipidemia, hypertension, renal disease, thyroid disease Additional medical history: hiatial hernia,memory loss, Psychiatric history: anxiety, depression - Past Surgical History Surgical History: other Additional surgical history: peg tube insertion,tubal,nasal,bowl resection - Social History Smoking Status: Former smoker Smokeless Tobacco Status: No Alcohol use: none Drug use: none - Family History Mother Adopted: No Family Member Ethnicity: Non- Living Status: Hx Family Cardiac Disorders: Yes (HTN) Hx Family Respiratory Disorders: No Hx Family Cancer: No Hx Family GI Disorders: No Hx Family Endocrine Disorder: Yes (DM) Hx Family Neuromuscular Disorders: No Hx Family Neurologic Disorders: No Hx Family HEENT Disorders: No Hx Family Autoimmune Disorders: No Father Adopted: No Family Member Ethnicity: Non- Living Status: Hx Family Cardiac Disorders: Yes Brother Adopted: No Family Member Ethnicity: Non- Living Status: Hx Family Cardiac Disorders: Yes Internal Medicine - H&P: Meds Albuterol Neb [Proventil Neb] 2.5 mg IH TID PRN 11/22/18 [History] Albuterol Sulfate [Ventolin Hfa] 2 puff PO Q6H PRN 11/22/18 [History] Aspirin [Lo-Dose Aspirin EC] 81 mg PO DAILY 11/22/18 [History] Atenolol [Tenormin] 50 mg PO BID 11/22/18 [History] Atorvastatin [Lipitor] 40 mg PO QPM 11/22/18 [History] Bisacodyl [Woman's Laxative] 5 mg PO QPM 11/22/18 [History] Budesonide/Formoterol 80/4.5 [Symbicort 80/4.5] 2 puff PO BID 11/22/18 [History] Bumetanide 0.5 mg PO DAILY 11/22/18 [History] Clopidogrel [Plavix] 75 g PO DAILY 11/22/18 [History] Digoxin [Lanoxin] 0.25 mg PO QAM 11/22/18 [History] Diltiazem HCl [Tiazac] 180 mg PO DAILY 11/22/18 [History] Docusate Sodium [Dulcolax Stool Softener] 100 mg PO DAILY 11/22/18 [History] Ergocalciferol (VITAMIN D2) [Vitamin D2] 50,000 units PO MO 11/22/18 [History] Ferrous Sulfate 325 mg PO DAILY 11/22/18 [History] Fluticasone Propionate Nasal [Flonase] 50 mcg NS BID 11/22/18 [History] Furosemide [Lasix] 40 mg PO DAILY 11/22/18 [History] Gabapentin [Neurontin] 800 mg PO BID 11/22/18 [History] Insulin NPH Hum/Reg Insulin Hm [Novolin 70-30 Flexpen] 25 units SQ BID 11/22/18 [History] Levothyroxine Sodium [Tirosint] 100 mcg PO QAM 11/22/18 [History] Meloxicam [Mobic] 15 mg PO DAILY 11/22/18 [History] Montelukast [Singulair] 10 mg PO QPM 11/22/18 [History] Omeprazole [PriLOSEC] 40 mg PO DAILY 11/22/18 [History] Potassium Chloride [Klor-Con 10] 10 meq PO DAILY 11/22/18 [History] Tiotropium [Spiriva] 18 mcg IH DAILY 11/22/18 [History] guaiFENesin [Mucus Relief ER] 600 mg PO Q12H PRN 11/22/18 [History] raNITIdine HCl [Zantac] 150 mg PO BID 11/22/18 [History] Allergy/AdvReac Type Severity Reaction Status Date / Time No Known Allergies Allergy Verified 11/22/18 11:07 All Systems PM: A 10-system review of systems was performed and is negative for pertinent findings except as documented above in the HPI. - Constitutional Constitutional: no chills, no fever(s), no night sweats - EENT Eyes: no change in vision, no discharge, no pain, no photophobia Ears: no ear discharge, no ear pain, no tinnitus Nose, mouth and throat: as per HPI, dysphagia, no nasal discharge, no neck pain, no sore throat - Cardiovascular Cardiovascular ROS IM: no chest pain, no diaphoresis, no dyspnea, no lightheadedness, no palpitations, no syncope - Respiratory Respiratory: no cough, no dyspnea, no wheezing, no excessive phlegm production - Gastrointestinal Gastrointestinal: as per HPI, no abdominal pain, no change in bowel habits, no change in stool character, no coffee ground emesis, no constipation, no diarrhea, no hematemesis, no hematochezia, no melena, no nausea, no vomiting - Genitourinary Genitourinary: no difficulty urinating, no dysuria, no flank pain, no hematuria, no urinary frequency - Musculoskeletal Musculoskeletal ROS IM: back pain, no arthralgias, no myalgias - Integumentary Integumentary IM: no rash, no unusual bruising - Neurological Neurological ROS: no confusion, no convulsions, no focal weakness, no numbness, no tingling, no tremor(s) - Constitutional Vitals: Temp Pulse Resp BP Pulse Ox 100.0 F H 89 27 138/86 97 11/22/18 13:20 11/22/18 13:20 11/22/18 13:20 11/22/18 13:20 11/22/18 13:20 General appearance: Present: A&O X 3, pleasant, no acute distress Exam: -see below - Head Head exam: Present: atraumatic, normal inspection, normocephalic - Eye Eye exam: Present: PERRL, conjuntiva pink, sclera anicteric Pupils: Present: PERRL - ENT ENT exam: Present: mucous membranes moist, normal exam, normal oropharynx - Neck Neck exam general surgery: Present: normal inspection, trachea midline. Absent: tenderness - Respiratory Respiratory exam: Present: CTAB, rhonchi (b/l). Absent: accessory muscle use, respiratory distress, wheezes - Cardiovascular Cardiovascular exam: Present: +S1, +S2. Absent: +S3, +S4, systolic murmur - GI/Abdominal GI/Abdominal exam: Present: normal bowel sounds, soft, no peritoneal signs. Absent: guarding, rebound, tenderness - Neurological Exam Neurological exam: Present: CN II-XII intact, oriented X3, no focal deficits, strengths equal and symetr throughout - Psychiatric Psychiatric exam: Present: normal affect, normal mood. 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 -EGD report: friable, inflammed ulcerated lesions in middle 1/3 esophagus-- bx; Z line irregular at GE junction-- bx; erythematous antrum-- bx -EBUS-[facility] report: 90% obstruction of mainstem bronchus both L and R, BAL performed highly suspicious of malignancy; 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 -Former smoker, no O2 at home, on 2.5 L now -Previous Cardiac Workup: Echo 10/19/18: LVEF 60%, indeterminate diastolic function -recent ED visit for COPD exacerbation -no leukocytosis or significant anemia on CBC -no significant electrolyte abnormalities on BMP -A1c 6.9% -FULL CODE -awaiting EGD biopsies -awaiting final EBUS results -awaiting resp cx -daily CBC and BMP -high aspiration risk at baseline with concern of tracheobronchial fistula, will start Zosyn -diet: NPO at this time d/t aspiration risk -nutrition and pastoral consult -to resume most home medications, may consider holding ASA/Plavix -thoracic surgery and hem/onc consulted for evaluation and planning regarding tracheobronchial fistula and esophageal cancer, respectively Qualifiers: Malignant neoplasm of esophagus location: middle third Qualified Code(s): C15.4 - Malignant neoplasm of middle third of esophagus (2) Diabetes Current Visit: No Status: Chronic Assessment and plan: -hx of DM -A1c pending -will continue home medications once no longer NPO -low dose insulin q6 hrs Qualifiers: Diabetes mellitus type: type 2 Diabetes mellitus [facility] insulin use: wi th rn long term care use Diabetes mellitus complication status: with hyperglycemia Qualified Code(s): E11.65 - Type 2 diabetes mellitus with hyperglycemia; 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 (3) Hypertension Current Visit: No Status: Chronic Assessment and plan: -BP 130-140s/70-80s, stable -will continue home meds once no longer NPO -will add hydralazine PRN -monitor vitals Qualifiers: Hypertension type: essential hypertension Qualified Code(s): I10 - Essential (primary) hypertension (4) CAD (coronary artery disease) Current Visit: No Status: Chronic Assessment and plan: -will hold plavix/ASA at this time -may continue other home meds once no longer NPO -may continue after conversation with thoracic surgery with further plan Qualifiers: Coronary Disease-Associated Artery/Lesion type: [place] artery [place] vs. transplanted heart: [place] heart Associated angina: without angina Qualified Code(s): I25.10 - Atherosclerotic heart disease of [place] coronary artery without angina pectoris (5) Diastolic CHF Current Visit: No Status: Chronic Assessment and plan: -rhonchi heard on auscultation b/l, likely from EBUS than CHF exacerbation -continue home meds once no longer NPO -will consider CXR if respiratory status fails to resolve or further deteriorates Qualifiers: Qualified Code(s): I50.32 - Chronic diastolic (congestive) heart failure (6) Hyperlipidemia Current Visit: No Status: Chronic Assessment and plan: -may continue home meds once no longer NPO Qualifiers: Hyperlipidemia type: unspecified Qualified Code(s): E78.5 - Hyperlipidemia, unspecified (7) Paroxysmal atrial fibrillation Current Visit: No Status: Chronic Assessment and plan: -regular rhythm at this time -telemetry monitoring -may start IV metoprolol if rhythm noticed -hold anticoagulation at this time (8) COPD (chronic obstructive pulmonary disease) Current Visit: No Status: Chronic Assessment and plan: -does not appear to be in acute exacerbation at this time -rhonchi noted on exam b/l, likely from EBUS -may consider steroids if no improvement or further respiratory decompensation -continue home inhalers of albuterol, symbicort, spiriva Qualifiers: COPD type: unspecified COPD Qualified Code(s): J44.9 - Chronic obstructive pulmonary disease, unspecified (9) Hypothyroidism Current Visit: No Status: Chronic Assessment and plan: -continue home meds if no longer NPO Qualifiers: Hypothyroidism type: unspecified Qualified Code(s): E03.9 - Hypothyroidism, unspecified (10) History of colon cancer Current Visit: No Status: Chronic Assessment and plan: -s/p colon resection with reverse colostomy (11) DVT prophylaxis Current Visit: No Status: Acute Assessment and plan: -SCDs - Time Spent With Patient Total time spent is greater than 50% in coordination of care (as documented) at patient's floor/unit and/or counseling patient: <Benson Burk - Last Filed: 11/22/18 18:58> Date of Encounter: 11/22/18 Internal Medicine - H&P: HPI History of present illness: Ms. Celaya is a 73 year old female All Systems PM: A 10-system review of systems was performed and is negative for pertinent findings except as documented above in the HPI. - Constitutional Vitals: Temp Pulse Resp BP Pulse Ox 98.2 F 88 19 113/67 97 11/22/18 18:38 11/22/18 18:38 11/22/18 18:38 11/22/18 18:38 11/22/18 18:38 Internal Med - H&P Results - Labs CBC & Chem 7: 11/22/18 16:51 11/22/18 16:51 Labs: Short CBC 11/22/18 Range/Units 16:51 WBC 10.1 (4.3-11.1) K/mcL Hgb 13.7 (11.5-15.4) g/dL Hct 43.7 (35.3-44.9) % Plt Count 304 (140-400) K/mcL Neutrophils # 9.2 H (1.6-8.9) K/mcL BMP 11/22/18 16:51 Sodium 139 Potassium 4.1 Chloride 103 Carbon Dioxide 27 BUN 11 Creatinine 0.83 Glucose 148 H Calcium 9.3 Liver Function 11/22/18 Range/Units 16:51 Total Bilirubin 0.5 (0.3-1.0) mg/dL AST 10 L (13-39) Units/L ALT 8 (7-52) Units/L Alkaline Phosphatase 89 (34-104) Units/L Albumin 3.6 (3.5-5.7) g/dL - Assessment and Plan (1) Squamous cell carcinoma of esophagus Current Visit: Yes Status: Acute (2) Paroxysmal atrial fibrillation Current Visit: No Status: Chronic (3) Type II diabetes mellitus Current Visit: No Status: Chronic Qualifiers: Diabetes mellitus rn long term care insulin use: with rn long term care use Diabetes mellitus complication status: without complication Qualified Code(s): E11.9 - Type 2 diabetes mellitus without complications; 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 I have verified the accuracy of the medical student's documentation with regards to the history, physical exam findings, and medical decision making on 11/22/18. Ms Celaya is 73y/o female sent from endoscopy due to concern for trachoeso phageal fistula after finding esophageal mass. She has associated respiratory difficulty and was found to have bronchial obstruction as well. She is to be evaluated by CT surgery. At this time she is having some hemoptysis but denies pain. Exam: Alert. NC. Mucus membranes dry. EOMI. Comfortable lying flat. Neck supple. Coarse stridor-like congestion in upper chest. Heart distant but not tachycardic. Abd soft and nontender. Moves all extremities. No edema. No rash. I/P 1. Squamous - cell carcinoma of esophagus - onc consulted 2. Possible TE fistula and bronchial obstruction - CT surg consulted for further eval. Further diagnoses and plan as above.
[2018-11-22] MEDS ORDERED: Naloxone 0.4 MG/ML INJ IVP PRN (16:30)
[2018-11-22] MEDS ORDERED: *HR* Promethazine 25 MG/ML VIAL IVP PRN (16:30)
[2018-11-22] MEDS ORDERED: Ondansetron 4 MG/2 ML VIAL IVP PRN (16:30)
[2018-11-22] MEDS ORDERED: Albuterol 2.5 MG/3 ML NEBULIZER IH PRN (16:34)
[2018-11-22] MEDS ORDERED: Dextrose Gel 15 GM/37.5 ML TUBE PO PRN ×2 (16:41)
[2018-11-22] MEDS ORDERED: D5% in Water 1,000 ML IVC PRN (16:41)
[2018-11-22] MEDS ORDERED: *HR* Dextrose 50 % in Water (Syg) 50 ML SYRINGE IVP PRN (16:41)
[2018-11-22] MEDS: Insulin LISPRO 300 UNITS/3 ML VIAL SQ SCH (17:06)
[2018-11-22 17:12] LABS: Basophils % 0.3 %; Hematocrit 43.7 % (35.3-44.9); Hemoglobin 13.7 g/dL (11.5-15.4); Immature Granulocytes % 0.4 % (0-4); Lymphocytes # 0.6 K/mcL (0.6-4.6); Lymphocytes % 5.8 %; Mean Corpuscular HGB Conc 31.4 g/dL (31.6-35.5); Mean Corpuscular Hemoglobin 25.9 pg (28.0-33.3); Mean Corpuscular Volume 82.8 fL (83.0-100.0); Mean Platelet Volume 9.7 fL (9.4-12.4); Monocytes # 0.3 K/mcL (0.0-1.3); Monocytes % 2.5 %; Neutrophils # 9.2 K/mcL (1.6-8.9); Platelet Count 304 K/mcL (140-400); Red Blood Count 5.28 M/mcL (3.82-4.97); White Blood Count 10.1 K/mcL (4.3-11.1)
[2018-11-22 17:14] LABS: Estimated Average Glucose 151 mg/dl
[2018-11-22 17:26] LABS: Alanine Aminotransferase 8 Units/L (7-52); Albumin 3.6 g/dL (3.5-5.7); Albumin/Globulin Ratio 1.4 (1.1-2.2); Alkaline Phosphatase 89 Units/L (34-104); Aspartate Amino Transferase 10 Units/L (13-39); BUN/Creatinine Ratio 13 (6-26); Bilirubin,Total 0.5 mg/dL (0.3-1.0); Blood Urea Nitrogen 11 mg/dL (8-23); Calcium 9.3 mg/dL (8.6-10.3); Carbon Dioxide 27 mEq/L (23-29); Chloride 103 mEq/L (98-107); Globulin 2.6 g/dL (2.4-3.5); Glucose 148 mg/dL (70-105); Osmolality,Calculated 290 (280-300); Potassium 4.1 mEq/L (3.5-5.1); Sodium 139 mEq/L (136-145); Total Protein 6.2 g/dL (6.4-8.9); eGFR For African Americans > 60 (> 60); eGFR For Non-African Americans > 60 (> 60)
[2018-11-22] MEDS: Ringers Solution, Lactated 1,000 ML IVC SCH (17:56)
[2018-11-22] MEDS: Piperacillin/Tazobactam 3.375 GM in 0.9 % Sodium Chloride Mini Bag 100 ML IVPB SCH ×2 (17:57→23:20)
[2018-11-22 18:20] LABS: Appearance of Body Fluid Cloudy (Clear); Volume of Body Fluid 18 mL
[2018-11-22] MEDS: Budesonide/Formoterol 80/4.5 1 PUFF INH IH SCH (20:10)
[2018-11-23] MEDS: Insulin LISPRO 300 UNITS/3 ML VIAL SQ SCH ×4 (01:17→17:04)
[2018-11-23 05:45] LABS: Basophils % 0.2 %; Eosinophils % 0.2 %; Hematocrit 41.8 % (35.3-44.9); Hemoglobin 12.8 g/dL (11.5-15.4); Immature Granulocytes % 0.4 % (0-4); Lymphocytes # 1.2 K/mcL (0.6-4.6); Lymphocytes % 14.5 %; Mean Corpuscular HGB Conc 30.6 g/dL (31.6-35.5); Mean Corpuscular Hemoglobin 26.1 pg (28.0-33.3); Mean Corpuscular Volume 85.3 fL (83.0-100.0); Mean Platelet Volume 9.9 fL (9.4-12.4); Monocytes # 0.8 K/mcL (0.0-1.3); Neutrophils # 6.2 K/mcL (1.6-8.9); Platelet Count 322 K/mcL (140-400); Red Cell Distribution Width 14.7 % (11.5-14.5); Segmented Neutrophils % 74.7 %; White Blood Count 8.3 K/mcL (4.3-11.1)
[2018-11-23 06:02] LABS: BUN/Creatinine Ratio 13 (6-26); Blood Urea Nitrogen 12 mg/dL (8-23); Calcium 9.2 mg/dL (8.6-10.3); Carbon Dioxide 27 mEq/L (23-29); Chloride 103 mEq/L (98-107); Glucose 107 mg/dL (70-105); Magnesium 1.9 mg/dL (1.6-2.6); Osmolality,Calculated 290 (280-300); Potassium 3.7 mEq/L (3.5-5.1); Sodium 140 mEq/L (136-145); eGFR For African Americans > 60 (> 60); eGFR For Non-African Americans > 60 (> 60)
[2018-11-23] MEDS: Budesonide/Formoterol 80/4.5 1 PUFF INH IH SCH ×2 (07:57→21:51)
[2018-11-23] MEDS: Piperacillin/Tazobactam 3.375 GM in 0.9 % Sodium Chloride Mini Bag 100 ML IVPB SCH ×2 (08:07→16:03)
--- NOTE | 2018-11-23 08:21 | Internal Med Progress Note ---
<NormaFrankie Lg - Last Filed: 11/23/18 13:45> Hospitalist Progress Note - Encounter Date of Encounter: 11/23/18 Time of Encounter: 09:45 - Subjective Interval History: Ms. Celaya is a 73-year-old female with a history of COPD, AFib and CHF who is being followed for newly diagnosed stage 4 squamous cell carcinoma found on bronchoscopy yesterday. Today she is doing well, states that her breathing has improved, and denies chest pain, hemoptysis, or difficulty breathing. CT surgery has seen her and recommends radiation/oncology to evaluate her mass further. They additionally recommended an barium study to evaluate for possible tracheoesophageal fistula - Exam Vitals: Temp Pulse Resp BP Pulse Ox 98.2 F 92 18 151/82 98 11/23/18 07:33 11/23/18 07:33 11/23/18 08:00 11/23/18 07:33 11/23/18 08:00 Exam: Gen- pleasant well-appearing female in no acute distress. Brushing her hair in bed HENT- mucus membranes moist. No signs of blood in oropharynx. No palpable masses along the neck or trachea. On nasal cannula Neuro- alert and oriented x3. PERRLA, EOMI CV- irregular heart rate with S1 and S2. No murmurs rubs or gallops Lungs- diffuse wheezes throughout with rhonchi in upper manzo GI- abdomen nontener. normoactive bowel sounds Extremities- no peripheral edema. Pulses 2+ in dorsalis pedis Skin- no rashes or lesions noted - Assessment and Plan (1) Esophageal cancer, stage IV Current Visit: Yes Status: Acute Assessment and Plan: Bronchoscopy done yesterday revealed a large fungating, friable mass obscuring 90% of the right main stem bronchus just distal to the elizabeth. CTPE done on 11/17 showed numerous enlarged lymph nodes. CT surgery and oncology are both following. Barium study was done which revealed no signs of a tracheoesophageal fistula. CT surgery recommends consulting radiation/oncology due to the unresect able nature of the tumor. (2) Squamous cell carcinoma of esophagus Current Visit: Yes Status: Acute Assessment and Plan: See notes above (3) Acute exacerbation of chronic obstructive airways disease Current Visit: No Status: Acute Assessment and Plan: Etiology of exacerbation could be a primary lung issue or secondary to obstructing mass. At this point we want to maximize her possible air exchange; start Duonebs Q8H. (4) Atrial fibrillation with rapid ventricular response Current Visit: No Status: Acute Assessment and Plan: Currently rate has been under 100. Home digoxin restarted due to likelihood of albuterol-induced tachycardia from the duonebs. Otherwise continue to monitor (5) Dysphagia Current Visit: No Status: Acute Assessment and Plan: Patient is currently NPO. Will continue to follow up throughout the day. (6) Hypertension Current Visit: No Status: Chronic Assessment and Plan: Blood pressure has been mildly elevated in the 150s systolic. Atenolol was restarted. Continue to monitor (7) DVT prophylaxis Current Visit: No Status: Acute Assessment and Plan: SCDs DVT Prophylaxis: SCDs - Time Spent with Patient Total time spent is greater than 50% in coordination of care (as documented) at patient's floor/unit and/or counseling patient: Internal Medicine: Result - Labs CBC & Chem 7: 11/23/18 04:41 11/23/18 04:41 Labs: Short CBC 11/22/18 11/23/18 Range/Units 16:51 04:41 WBC 10.1 8.3 (4.3-11.1) K/mcL Hgb 13.7 12.8 (11.5-15.4) g/dL Hct 43.7 41.8 (35.3-44.9) % Plt Count 304 322 (140-400) K/mcL Neutrophils # 9.2 H 6.2 (1.6-8.9) K/mcL BMP 11/22/18 11/23/18 16:51 04:41 Sodium 139 140 Potassium 4.1 3.7 Chloride 103 103 Carbon Dioxide 27 27 BUN 11 12 Creatinine 0.83 0.91 Glucose 148 H 107 H Calcium 9.3 9.2 Liver Function 11/22/18 Range/Units 16:51 Total Bilirubin 0.5 (0.3-1.0) mg/dL AST 10 L (13-39) Units/L ALT 8 (7-52) Units/L Alkaline Phosphatase 89 (34-104) Units/L Albumin 3.6 (3.5-5.7) g/dL Consult Discharge Plan - Plan Referrals: Yolette Fabian, ODETTE [Primary Care Provider] - <Luis Enrique Tomas - Last Filed: 11/23/18 18:49> Hospitalist Progress Note - Encounter Date of Encounter: 11/23/18 - Exam Vitals: Temp Pulse Resp BP Pulse Ox 98.1 F 111 18 153/94 94 11/23/18 15:23 11/23/18 15:23 11/23/18 15:40 11/23/18 15:23 11/23/18 15:40 - Assessment and Plan (1) Hypertension Current Visit: No Status: Chronic (2) Paroxysmal atrial fibrillation Current Visit: No Status: Chronic (3) Type II diabetes mellitus Current Visit: No Status: Chronic (4) Squamous cell carcinoma of esophagus Current Visit: Yes Status: Acute - Time Spent with Patient Total time spent is greater than 50% in coordination of care (as documented) at patient's floor/unit and/or counseling patient: Internal Medicine: Result - Labs CBC & Chem 7: 11/23/18 04:41 11/23/18 04:41 Labs: Short CBC 11/23/18 Range/Units 04:41 WBC 8.3 (4.3-11.1) K/mcL Hgb 12.8 (11.5-15.4) g/dL Hct 41.8 (35.3-44.9) % Plt Count 322 (140-400) K/mcL Neutrophils # 6.2 (1.6-8.9) K/mcL BMP 11/23/18 04:41 Sodium 140 Potassium 3.7 Chloride 103 Carbon Dioxide 27 BUN 12 Creatinine 0.91 Glucose 107 H Calcium 9.2 - Impressions Impressions Barium Swallow X-Ray 11/23/18 09:24 IMPRESSION: 1. Narrowing of the mid thoracic esophagus, corresponding with the appearance of malignancy seen on CT. However, no associated mucosal abnormalities nor findings of fistula formation are identified. 2. Small to moderate sliding hiatal hernia. D/ / Donnie Amador MD / Donnie Amador MD Interpreting Provider: Donnie Amador MD - Attending Attestation I examined this patient and my medical decision-making was reviewed with the resident physician and medical student. I agree with the documented findings, disposition and treatment plan as described except to the extent set forth below. Currently states she has no shortness of breath, but at bedside she has audible stridor. She does still feel the sensation that a mass is stuck in her throat. On exam she appears to have mild resp distress but able to partake in conversation without issue. VS: reviewed, Labs: reviewed. Plan is for Radiation Oncology evaluation for possible palliative radiation therapy. Continue supportive care as noted above. <Frankie Green - Last Filed: 11/23/18 13:45> (5) Dysphagia Qualifiers: Dysphagia type: unspecified Qualified Code(s): R13.10 - Dysphagia, unspecified (6) Hypertension Qualifiers: Hypertension type: essential hypertension Qualified Code(s): I10 - Essential (primary) hypertension <Luis Enrique Tomas - Last Filed: 11/23/18 18:49> (1) Hypertension Qualifiers: Hypertension type: essential hypertension Qualified Code(s): I10 - Essential (primary) hypertension (3) Type II diabetes mellitus Qualifiers: Diabetes mellitus custodial insulin use: with custodial use Diabetes mellitus complication status: without complication Qualified Code(s): E11.9 - Type 2 diabetes mellitus without complications; 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
[2018-11-23] MEDS: Ringers Solution, Lactated 1,000 ML IVC SCH (08:52)
--- NOTE | 2018-11-23 09:17 | Cardiothoracic Consult Note ---
Date of Encounter: 11/23/18 Time of Encounter: 09:13 Assessment and Plan (1) Esophageal cancer, stage IV Current Visit: Yes Status: Acute The assessment and plan as outlined above was discussed with the patient and/or family members who expressed understanding and agreement. All questions were answered. I have reviewed all data. I have coordinated care with the hospitalist, general surgery and have personally called radiation oncology. 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 I am going to place the consult to rad onc and obtain an esophagram. I will take measurements for possible covered esophageal stent. (2) Tracheo-esophageal fistula Current Visit: Yes Status: Acute The assessment and plan as outlined above was discussed with the patient and/or family members who expressed understanding and agreement. All questions were answered. per plans above. - History of Present Illness Consult date: 11/23/18 Requesting physician: Nagi Medina Consult reason: esophageal cancer Chief complaint: dysphagia History of present illness: Ms. Celaya is a 73 year old female who [facility] approximately 3 months history per patient of progressive dysphagia of liquids and now solids. CT of the chest demonstrates a 4nealry 5 cm mass seen on a 11/17/18 ct scan associated with local invasion into the tracheobronchial tree. EGD and EBUS demonstrated a fungating mass at 24 cm and biopsy results are pending. Past Med Surg Social Fam HX - Past Medical History Medical history: arthritis, asthma, atrial fibrillation, cancer, CHF, COPD, coronary artery disease, CVA, diabetes, GERD, hyperlipidemia, hypertension, renal disease, thyroid disease Additional medical history: hiatial hernia,memory loss, Psychiatric history: anxiety, depression - Past Surgical History Surgical History: other Additional surgical history: peg tube insertion,tubal,nasal,bowl resection - Social History Smoking Status: Former smoker Smokeless Tobacco Status: No Alcohol use: none Drug use: none - Family History Mother Adopted: No Family Member Ethnicity: Non- Living Status: Hx Family Cardiac Disorders: Yes (HTN) Hx Family Respiratory Disorders: No Hx Family Cancer: No Hx Family GI Disorders: No Hx Family Endocrine Disorder: Yes (DM) Hx Family Neuromuscular Disorders: No Hx Family Neurologic Disorders: No Hx Family HEENT Disorders: No Hx Family Autoimmune Disorders: No Father Adopted: No Family Member Ethnicity: Non- Living Status: Hx Family Cardiac Disorders: Yes Brother Adopted: No Family Member Ethnicity: Non- Living Status: Hx Family Cardiac Disorders: Yes Medications and Allergies Albuterol Neb [Proventil Neb] 2.5 mg IH TID PRN 11/22/18 [History] Albuterol Sulfate [Ventolin Hfa] 2 puff PO Q6H PRN 11/22/18 [History] Aspirin [Lo-Dose Aspirin EC] 81 mg PO DAILY 11/22/18 [History] Atenolol [Tenormin] 50 mg PO BID 11/22/18 [History] Atorvastatin [Lipitor] 40 mg PO QPM 11/22/18 [History] Bisacodyl [Woman's Laxative] 5 mg PO QPM 11/22/18 [History] Budesonide/Formoterol 80/4.5 [Symbicort 80/4.5] 2 puff PO BID 11/22/18 [History] Bumetanide 0.5 mg PO DAILY 11/22/18 [History] Clopidogrel [Plavix] 75 g PO DAILY 11/22/18 [History] Digoxin [Lanoxin] 0.25 mg PO QAM 11/22/18 [History] Diltiazem HCl [Tiazac] 180 mg PO DAILY 11/22/18 [History] Docusate Sodium [Dulcolax Stool Softener] 100 mg PO DAILY 11/22/18 [History] Ergocalciferol (VITAMIN D2) [Vitamin D2] 50,000 units PO MO 11/22/18 [History] Ferrous Sulfate 325 mg PO DAILY 11/22/18 [History] Fluticasone Propionate Nasal [Flonase] 50 mcg NS BID 11/22/18 [History] Furosemide [Lasix] 40 mg PO DAILY 11/22/18 [History] Gabapentin [Neurontin] 800 mg PO BID 11/22/18 [History] Insulin NPH Hum/Reg Insulin Hm [Novolin 70-30 Flexpen] 25 units SQ BID 11/22/18 [History] Levothyroxine Sodium [Tirosint] 100 mcg PO QAM 11/22/18 [History] Meloxicam [Mobic] 15 mg PO DAILY 11/22/18 [History] Montelukast [Singulair] 10 mg PO QPM 11/22/18 [History] Omeprazole [PriLOSEC] 40 mg PO DAILY 11/22/18 [History] Potassium Chloride [Klor-Con 10] 10 meq PO DAILY 11/22/18 [History] Tiotropium [Spiriva] 18 mcg IH DAILY 11/22/18 [History] guaiFENesin [Mucus Relief ER] 600 mg PO Q12H PRN 11/22/18 [History] raNITIdine HCl [Zantac] 150 mg PO BID 11/22/18 [History] Allergy/AdvReac Type Severity Reaction Status Date / Time No Known Allergies Allergy Verified 11/22/18 11:07 All Systems Review: The remainder of the systems were reviewed and are negative - Constitutional Constitutional: anorexia, weakness, weight loss - EENT Eyes: blurred vision Nose, mouth and throat: dysphagia - Cardiovascular Cardiovascular: dyspnea at rest - Respiratory Respiratory: hemoptysis - Gastrointestinal Gastrointestinal: hematemesis Physical Examination Vital Signs, Last 4 Hours Temp Pulse Resp BP Pulse Ox 11/23/18 08:00 18 98 11/23/18 07:33 98.2 F 92 17 151/82 98 General: Conversant, No Apparent Distress, Well developed HEENT: Atraumatic, Normocephaly, Trachea midline Neck: No JVD, Normal carotid pulses Cardiac: Reg Rate and Rhythm, Normal S1 and S2 Lungs: Other (wheezing and rhonchi ) Neuro: Alert and responsive, Other (slight disorientation ) Vascular: Normal capillary refill Abdomen: Soft Skin: No rashes noted on visualized skin Extremities: No Clubbing, No Cyanosis, No Edema, Normal Pulses Results 11/23/18 04:41 11/23/18 04:41 Lab Results, Last 24 hours 11/22/18 11/22/18 11/23/18 16:51 16:51 04:41 WBC 10.1 8.3 Hgb 13.7 12.8 Hct 43.7 41.8 Plt Count 304 322 Sodium 139 Potassium 4.1 Chloride 103 Carbon Dioxide 27 BUN 11 Creatinine 0.83 Glucose 148 H Calcium 9.3 Magnesium Total Bilirubin 0.5 AST 10 L ALT 8 Alkaline Phosphatase 89 11/23/18 04:41 WBC Hgb Hct Plt Count Sodium 140 Potassium 3.7 Chloride 103 Carbon Dioxide 27 BUN 12 Creatinine 0.91 Glucose 107 H Calcium 9.2 Magnesium 1.9 Total Bilirubin AST ALT Alkaline Phosphatase - Imaging Echo: image reviewed Consult Discharge Plan - Plan Referrals: Yolette Fabian CNP [Primary Care Provider] -
[2018-11-23] MEDS ORDERED: Potassium Chloride 40 MEQ, Lidocaine 1% 2 ML in 0.9 % Sodium Chloride 500 ML IVPB ONE (09:59)
[2018-11-23] MEDS ORDERED: Tiotropium 18 MCG inhalation IH SCH (10:00)
--- NOTE | 2018-11-23 10:27 | Oncology Inp Consult Note ---
<Donnie Chiu - Last Filed: 11/23/18 19:01> Date of Encounter: 11/23/18 Time of Encounter: 10:15 Assessment and Plan (1) Squamous cell carcinoma Status: Acute Assessment and plan: Newly diagnosed tracheal and esophageal mass which has been identified as squamous cell carcinoma on pathology. Patient was seen by Dr. Gonzalez with CT surg who did not feel that this is a resectable mass, and felt that esophageal stenting may be poor option as well. Rad-onc has been consulted as well. 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 Radiation oncology was consulted and feel that palliative radiation may be feasible and warranted. One major concern is that it may make the patient's dysphagia worse, so it may be appropriate to consider palliative PEG tube placement in the near future. We did discuss this with the patient's family and they are going to discuss and speak with us on Monday. (2) COPD (chronic obstructive pulmonary disease) Status: Chronic Assessment and plan: History of COPD with airway obstruction worsened but large mass which is obstructing main bronchus. Management per primary team. Qualifiers: COPD type: unspecified COPD Qualified Code(s): J44.9 - Chronic obstructive pulmonary disease, unspecified (3) Atrial fibrillation with rapid ventricular response Status: Acute Assessment and plan: Afib RVR on Cardizem, Digoxin, Atenolol. Rate is under 110 at this time. Management per primary team. 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 Celaya is a 73yo woman who presented to [facility] on 11/22/18 with complaint of dysphagia and recent diagnosis of esophageal mass concerning for squamous cell carcinoma. Hematology and oncology were consulted on 11/23/18 for workup of this esophageal mass. In short, Ms. Celaya is a 73-year-old woman with history of CAD, A. fib, CHF and remote history of tracheal cancer who presented to [facility] due to dysphagia which has been going on for years. The patient apparently has been dealing with regurgitation of food which has been getting progressively worse over the past several years, and especially several months. The patient does admit to some weight loss, and has had regurgitation of both food and fluids. Significantly, the patient does have history of both laryngeal and colon cancer. She had a CTA for chest on 11/17/18 demonstrating severe left hilar and subcarinal lymphadenopathy consistent with malignancy as well as a new left upper lobe pulmonary nodule. The patient was planned for combined EGD and bronchoscopy with EBUS tissue sampling, at which time a large esophageal mass was found in the middle third of the esophagus. The bronchoscopy report does demonstrate that there is an obstructing mass in the right main bronchus causing greater than 90% obstruction. Tissue sample was collected and demonstrated metastatic squamous cell carcinoma. Significantly, the patient says that she is feeling generally well with the exception that she is unable to swallow food very well. She says that she has not been having fever, chills, sweats. She does have shortness of breath with cough and sputum production, however she says that this is about on par with her typical respiratory status. She has no other acute complaints at this time. Oncology History Tracheal cancer, kissing lesion 5 cm above elizabeth. Squamous cell carcinoma diagnosis 08/2010. Photovaporization with Photoferin on 09/2010. After that received concurrent chemoradiation with two doses of cisplatin 100 mg/m2, completed 01/2011. Currently in remission. Last bronchoscopy 09/25/2012, was negative. She had ENT exam by Dr. Chauhan on 06-18-13 and was normal. 04/17/15 CT scan of the chest indicated previously identified mediastinal hilar lymph nodes have decreased in size. There was no mediastinal or hilar adenopathy by size criteria. There were no pulmonary nodules or masses. The 2 cm right thyroid nodule extending into the superior mediastinum was unchanged. No evidence of recurrence. Patient does have a history of stage I sigmoid colon cancer. In December 2014 she had a perforation sigmoid colon. Pathology indicated a 3 x 2.5 cm tumor, adenocarcinoma, moderately differentiated, invading the muscularis propria, margins were negative. Lymphovascular invasion was not identified. All invasion not identified and tumor deposits or satellite nodules were not identified. There were 0 of 12 lymph nodes positive. This was pT2, PN0, Pn/a-- stage I. CEA was 2.4. Last follow-up was 04/21/15 Past Med Surg Social Fam HX - Past Medical History Medical history: arthritis, asthma, atrial fibrillation, cancer, CHF, COPD, coronary artery disease, CVA, diabetes, GERD, hyperlipidemia, hypertension, renal disease, thyroid disease Additional medical history: hiatial hernia,memory loss, Psychiatric history: anxiety, depression - Past Surgical History Surgical History: other Additional surgical history: peg tube insertion,tubal,nasal,bowl resection - Social History Smoking Status: Former smoker Smokeless Tobacco Status: No Alcohol use: none Drug use: none - Family History Mother Adopted: No Family Member Ethnicity: Non- Living Status: Hx Family Cardiac Disorders: Yes (HTN) Hx Family Respiratory Disorders: No Hx Family Cancer: No Hx Family GI Disorders: No Hx Family Endocrine Disorder: Yes (DM) Hx Family Neuromuscular Disorders: No Hx Family Neurologic Disorders: No Hx Family HEENT Disorders: No Hx Family Autoimmune Disorders: No Father Adopted: No Family Member Ethnicity: Non- Living Status: Hx Family Cardiac Disorders: Yes Brother Adopted: No Family Member Ethnicity: Non- Living Status: Hx Family Cardiac Disorders: Yes Medications and Allergies Albuterol Neb [Proventil Neb] 2.5 mg IH TID PRN 11/22/18 [History] Albuterol Sulfate [Ventolin Hfa] 2 puff PO Q6H PRN 11/22/18 [History] Aspirin [Lo-Dose Aspirin EC] 81 mg PO DAILY 11/22/18 [History] Atenolol [Tenormin] 50 mg PO BID 11/22/18 [History] Atorvastatin [Lipitor] 40 mg PO QPM 11/22/18 [History] Bisacodyl [Woman's Laxative] 5 mg PO QPM 11/22/18 [History] Budesonide/Formoterol 80/4.5 [Symbicort 80/4.5] 2 puff PO BID 11/22/18 [History] Bumetanide 0.5 mg PO DAILY 11/22/18 [History] Clopidogrel [Plavix] 75 mg PO DAILY 11/22/18 [History] Digoxin [Lanoxin] 0.25 mg PO QAM 11/22/18 [History] Diltiazem HCl [Tiazac] 180 mg PO DAILY 11/22/18 [History] Docusate Sodium [Dulcolax Stool Softener] 100 mg PO DAILY 11/22/18 [History] Ergocalciferol (VITAMIN D2) [Vitamin D2] 50,000 units PO MO 11/22/18 [History] Ferrous Sulfate 325 mg PO DAILY 11/22/18 [History] Fluticasone Propionate Nasal [Flonase] 50 mcg NS BID 11/22/18 [History] Furosemide [Lasix] 40 mg PO DAILY 11/22/18 [History] Gabapentin [Neurontin] 800 mg PO BID 11/22/18 [History] Insulin NPH Hum/Reg Insulin Hm [Novolin 70-30 Flexpen] 25 units SQ BID 11/22/18 [History] Levothyroxine Sodium [Tirosint] 100 mcg PO QAM 11/22/18 [History] Meloxicam [Mobic] 15 mg PO DAILY 11/22/18 [History] Montelukast [Singulair] 10 mg PO QPM 11/22/18 [History] Omeprazole [PriLOSEC] 40 mg PO DAILY 11/22/18 [History] Potassium Chloride [Klor-Con 10] 10 meq PO DAILY 11/22/18 [History] Tiotropium [Spiriva] 18 mcg IH DAILY 11/22/18 [History] guaiFENesin [Mucus Relief ER] 600 mg PO Q12H PRN 11/22/18 [History] raNITIdine HCl [Zantac] 150 mg PO BID 11/22/18 [History] Allergy/AdvReac Type Severity Reaction Status Date / Time No Known Allergies Allergy Verified 11/22/18 11:07 Review of systems: Constitutional: Denies fevers, chills, generalized fatigue. Admits to Weight loss, although not seen evidenced in prior weight records Head/Neck: Denies ALCALA, neck stiffness EENT: Denies vision changes/blurriness, rhinorrhea, congestion, sore throat CVS: Denies chest pain, palpitations, DUGAN, orthopnea, edema, PND Pulm: Admits to SOB, cough, sputum, hemoptysis, wheezing GI: Admits to dysphagia, vomiting. Denies hematochezia, hematemasis : Denies dysuria, increased frequency, urgency, hematuria Heme: Denies ease of bleeding or bruising MSK: Denies joint pain, limited ROM Skin: Denies rashes, ulcers, color changes Neuro: Denies ALCALA, paresthesias, focal deficits, ataxia Oncology - Exam - Constitutional Exam: Gen: Vitals noted. No acute distress. Hoarse voice Eyes: anicteric sclerae, moist conjunctivae; no lid-lag; Pupils equal and reactive to light HENT: Atraumatic; oropharynx clear with moist mucous membranes and no mucosal ulcerations; normal hard and soft palate Neck: Trachea midline; supple, no thyromegaly or lymphadenopathy Cardiac: RRR, no murmur, +S1/S2 Pulmonary: Diffusely wheezing on examination b/l Abdomen: soft, nontender, no guarding. No masses or hepatosplenomegaly MSK: ROM intact, no joint swelling noted Extremities: no BLE edema, nontender calf, no cyanosis or clubbing Skin: Normal temperature, turgor and texture; no rash, ulcers or subcutaneous nodules Neuro: moves all extremities, no focal deficits. Psych: Appropriate mood and behavior. A&Ox3 Consult Discharge Plan - Plan Referrals: Yolette Fabian CNP [Primary Care Provider] - <Ismael Almaraz S - Last Filed: 11/24/18 17:42> Date of Encounter: 11/23/18 Time of Encounter: 17:50 - Data of Consult Requesting Physician: Luis Enrique Tomas MD Primary Care Provider: Yolette Fabian Inpatient Charges Provider: Dr. Wendy Almarza Consult - Inpatient: [id number] - Attending Attestation I examined this patient and my medical decision-making was reviewed with Dr. Donnie Chiu. I agree with the documented findings, disposition and treatment plan as described except to the extent set forth below. Recurrence of squamous cell carcinoma. Most likely her tracheal cancer is recurrent at this time. She is presenting with a large subcarinal mass probably extending down. This is also compressing esophagus. CT scan chest 11/17/2018 and barium swallow showed mediastinal mass and left hilar mass and tracheal narrowing. To complete staging will proceed with CT abdomen and pelvis with IV contrast. Her creatinine is normal at 0.9 Past oncological history. I saw her in the past last clinic visit was 06/29/2015 Diagnosed with squamous cell carcinoma tracheal lesion [address] Roblero diagnosis August 2010 Forego vaporization with photoferin on September 2010 since then she completed concurrent chemoradiation with 2 doses of cisplatin 100 mg/m completed January 2011. Bronchoscopy 09/25/[address] chest April 2015 negative. She also had colon cancer by Dr. Salomon December 2014. T2 N0. No stage I with CEA 2.5. No systemic therapy. Discussed with Dr. Lama briefly. If possible she will could benefit from palliative radiation We will send the material for PDL one testing and next generation sequencing Would consider immunotherapy like single agent Pembrolizumab if PDL one positive I discussed with her and family in detail. They understand her swallowing may get worse with radiation. Discussed briefly about a PEG tube for feeding. Also discussed about her poor general condition and further treatment options. She one be a candidate for chemotherapy. Immunotherapy in may be of benefit. Overall prognosis guarded to poor. I have also mentioned help at home including hospice care and give time for family to decide in all treatment options
[2018-11-23] MEDS ORDERED: Ipratropium/Albuterol Neb 3 ML IH SCH (11:15)
[2018-11-23] MEDS: Ipratropium/Albuterol Neb 3 ML IH SCH ×3 (11:44→21:50)
[2018-11-23] MEDS: *HR* Digoxin 0.25 MG TABLET PO SCH (12:24)
--- NOTE | 2018-11-23 16:37 | Rad Onc Consult Note ---
Radiation Oncology HPI - Oncology history Comments: Diagnosis: 1. 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 2. Adenocarcinoma the sigmoid colon, pT2 pN0, diagnosed 2014 3. 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 Salomon) 11/22/2018: Bronchoscopy with endobronchial ultrasound and biopsy (Dr. Wade) 11/22/2018: EGD (Dr. Salomon) Date: 11/23/18 Primary Care Provider: Yolette Fabian History of present illness: Ms. Celaya is a 73-year-old female smoker with a history of multifocal squamous cell carcinoma the trachea treated in 2010 who is seen in her hospital room after presenting to the emergency department with dysphagia and regurgitation. She reports that she has had more difficulty swallowing over the last 3-4 months. She also notes increased cough with some hemoptysis over the same time frame. She is a poor historian. CT imaging demonstrated a large subcarinal and left hilar mass. She underwent bronchoscopy on 11/22/2018 where a nearly obstructing fungating mass was found 1 cm from the elizabeth bifurcation in the mainstem bronchus. The lumen airway was 90% occluded. FNA of a subcarinal lymph node was obtained and consistent with squamous cell carcinoma. She underwent EGD on 11/22/2018 demonstrating diffuse severe mucosal changes with contact bleeding, inflammation, and ulceration in the middle third of the esophagus. Biopsy was obtained and is pending. She denies any headaches or other neurological symptoms. She denies any GI complaints today. Code Status: Full Code Surgical History: other Smoking Status: Former smoker Smokeless Tobacco Status: No Alcohol use: none Drug use: none Oncology - Medications Albuterol Neb [Proventil Neb] 2.5 mg IH TID PRN 11/22/18 [History] Albuterol Sulfate [Ventolin Hfa] 2 puff PO Q6H PRN 11/22/18 [History] Aspirin [Lo-Dose Aspirin EC] 81 mg PO DAILY 11/22/18 [History] Atenolol [Tenormin] 50 mg PO BID 11/22/18 [History] Atorvastatin [Lipitor] 40 mg PO QPM 11/22/18 [History] Bisacodyl [Woman's Laxative] 5 mg PO QPM 11/22/18 [History] Budesonide/Formoterol 80/4.5 [Symbicort 80/4.5] 2 puff PO BID 11/22/18 [History] Bumetanide 0.5 mg PO DAILY 11/22/18 [History] Clopidogrel [Plavix] 75 g PO DAILY 11/22/18 [History] Digoxin [Lanoxin] 0.25 mg PO QAM 11/22/18 [History] Diltiazem HCl [Tiazac] 180 mg PO DAILY 11/22/18 [History] Docusate Sodium [Dulcolax Stool Softener] 100 mg PO DAILY 11/22/18 [History] Ergocalciferol (VITAMIN D2) [Vitamin D2] 50,000 units PO MO 11/22/18 [History] Ferrous Sulfate 325 mg PO DAILY 11/22/18 [History] Fluticasone Propionate Nasal [Flonase] 50 mcg NS BID 11/22/18 [History] Furosemide [Lasix] 40 mg PO DAILY 11/22/18 [History] Gabapentin [Neurontin] 800 mg PO BID 11/22/18 [History] Insulin NPH Hum/Reg Insulin Hm [Novolin 70-30 Flexpen] 25 units SQ BID 11/22/18 [History] Levothyroxine Sodium [Tirosint] 100 mcg PO QAM 11/22/18 [History] Meloxicam [Mobic] 15 mg PO DAILY 11/22/18 [History] Montelukast [Singulair] 10 mg PO QPM 11/22/18 [History] Omeprazole [PriLOSEC] 40 mg PO DAILY 11/22/18 [History] Potassium Chloride [Klor-Con 10] 10 meq PO DAILY 11/22/18 [History] Tiotropium [Spiriva] 18 mcg IH DAILY 11/22/18 [History] guaiFENesin [Mucus Relief ER] 600 mg PO Q12H PRN 11/22/18 [History] raNITIdine HCl [Zantac] 150 mg PO BID 11/22/18 [History] Allergy/AdvReac Type Severity Reaction Status Date / Time No Known Allergies Allergy Verified 11/22/18 11:07 Review of Systems Provider Comments: A 12 point review of systems was performed. Pertinent positives and negatives are listed below and in the history of present illness. All other systems negative. Physical Exam - Vitals Vital Signs: Last Vital Signs Temp 98.1 F 11/23/18 15:23 Pulse 111 11/23/18 15:23 Resp 18 11/23/18 15:40 BP 153/94 11/23/18 15:23 Pulse Ox 94 11/23/18 15:40 Height: 1.6 m Weight: 72.6 kg ECO Physical Exam: GENERAL: Frail, elderly appearing woman lying in her hospital bed. PSYCH: Affect appropriate for circumstances HEENT: Sclerae anicteric. No mucositis or thrush. Skin: No rashes or petechiae. Warm to touch. Lymph nodes: No cervical or supraclavicular adenopathy. Lungs: Rhonchorous breath sounds in the bilateral lungs with left basilar wheezing Cardiovascular: Regular rhythm and normal rate. Abdomen: Soft, nontender, nondistended Extremities: No edema. Neurologic: Alert, cranial nerves II-XII intact grossly Oncology- Results - Diagnostic Studies Imaging: CT OF THE CHEST WITHOUT CONTRAST 11/05/2018 CTA OF THE CHEST 11/17/2018 Large conglomerate of subcarinal and left hilar lymph nodes which cannot be . Largest component measures 4.8 x 3.6 cm on series 6, image 45 in the subcarinal region. Coronary artery calcifications are present. Narrowing of left-sided pulmonary arteries, veins and airways. There is occlusion of the left upper pulmonary vein. Pathology: 11/22/2018 A. Subcarinal lymph node, transbronchial needle aspiration: - Metastatic squamous cell carcinoma. B. Bronchoalveolar lavage, right lung: - Negative for malignancy. - Mild acute inflammation. - Blood is present. 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 Plan: Favor this to be a primary bronchogenic malignancy given her history. Whether this represents recurrence of her disease or an additional lesion given the prior multifocality is unclear. Esophageal cancer or even potentially radiation induced malignancy is felt to be less likely. In any of the above circumstances, treatment options are fairly limited. I do not have a great sense of her performance status, but it appears to be fairly poor limiting aggressive options. Additionally, she has received previous radiotherapy to a large portion of the trachea essentially just superior to the current bulk of her disease and extending to the vocal cords which will limit the amount of radiation that can be delivered. That being said, with her obstructive symptoms, I think palliative radiotherapy is warranted and feasible. I discussed this with her though it is unclear how much she was able to understand the discussion. She did state that she wanted to do whatever was possible to help her feel better. At this point, I will plan to see her this upcoming Monday morning at the [facility] for CT simulation with the plan to treat the large invasive mass to help improve her dysphagia and bronchial obstruction. She would certainly benefit from continued discussion regarding goals of care discussion/palliative care which was not addressed in any depth at this initial consultation. Dr. Almaraz will also be seeing her today. I appreciate his expertise. Thank for allowing me to participate in this patient's care. Please do not hesitate in contacting me with any questions or concerns. Reji Lama MD Radiation Oncologist [facility] This report was generated using [employer] dictation.
[2018-11-23] MEDS ORDERED: Isovue-370 500 ML BOTTLE IVP ONE (18:45)
[2018-11-24] MEDS: Piperacillin/Tazobactam 3.375 GM in 0.9 % Sodium Chloride Mini Bag 100 ML IVPB SCH ×2 (00:12→08:33)
[2018-11-24] MEDS: Insulin LISPRO 300 UNITS/3 ML VIAL SQ SCH ×4 (01:19→17:02)
[2018-11-24 02:30] LABS: Basophils % 0.2 %; Eosinophils % 0.1 %; Hematocrit 44.3 % (35.3-44.9); Immature Granulocytes % 0.4 % (0-4); Lymphocytes # 1.1 K/mcL (0.6-4.6); Lymphocytes % 9.5 %; Mean Corpuscular HGB Conc 31.6 g/dL (31.6-35.5); Mean Corpuscular Hemoglobin 26.1 pg (28.0-33.3); Mean Corpuscular Volume 82.6 fL (83.0-100.0); Mean Platelet Volume 9.7 fL (9.4-12.4); Monocytes % 8.6 %; Neutrophils # 9.4 K/mcL (1.6-8.9); Platelet Count 338 K/mcL (140-400); Red Blood Count 5.36 M/mcL (3.82-4.97); Red Cell Distribution Width 14.7 % (11.5-14.5); Segmented Neutrophils % 81.2 %; White Blood Count 11.5 K/mcL (4.3-11.1)
[2018-11-24 02:51] LABS: BUN/Creatinine Ratio 12 (6-26); Blood Urea Nitrogen 8 mg/dL (8-23); Calcium 9.4 mg/dL (8.6-10.3); Carbon Dioxide 27 mEq/L (23-29); Chloride 97 mEq/L (98-107); Glucose 128 mg/dL (70-105); Osmolality,Calculated 284 (280-300); Potassium 3.4 mEq/L (3.5-5.1); Sodium 137 mEq/L (136-145); eGFR For African Americans > 60 (> 60); eGFR For Non-African Americans > 60 (> 60)
[2018-11-24] MEDS: Ipratropium/Albuterol Neb 3 ML IH SCH ×4 (03:54→22:08)
[2018-11-24] MEDS ORDERED: *HR* Metoprolol 5 MG/5 ML VIAL IVP PRN (07:45)
--- NOTE | 2018-11-24 07:52 | Internal Med Progress Note ---
Hospitalist Progress Note - Encounter Date of Encounter: 11/24/18 Time of Encounter: 09:30 - Subjective Interval History: Family at bedside. Patient still having SOB but much improved. Denies fevers/chills, chest pain, n/v, diarrhea. - Exam Vitals: Temp Pulse Resp BP Pulse Ox 97.7 F 105 18 141/99 96 11/24/18 06:54 11/24/18 06:54 11/24/18 06:54 11/24/18 06:54 11/24/18 06:54 Exam: Gen- AAO x3, less distressed compared to yesterday's exam. HENT- MMM. No palpable masses, no tracheal deviation Neuro- CN II-XII in tact, no focal deficits. CV- irregularly irregular rhythm with tachycardia Lungs- Transmitted upper airway sounds, better air exchange since yesterday exam, expiratory wheezing throughout GI- abdomen nontener. normoactive bowel sounds Extremities- no peripheral edema. Pulses 2+ in dorsalis pedis Skin- no rashes or lesions noted - Assessment and Plan (1) Squamous cell carcinoma Current Visit: Yes Status: Acute Assessment and Plan: Bronchoscopy done prior to admission showing large mass in right main stem bronchus. Likely a recurrance of squamous cell carcinoma from 2010. Prognosis is poor. Discussed situation with patient and family at bedside. Based on Oncology and Rad/Onc evaluation, this is likely trachea as primary source. Discussed a Palliative therapy consult for goals of care, which they are agreeable to. Radiation/Oncology discussed with family about seeing them on Monday morning to help treat large mass to try to improve dysphagia. (2) Dysphagia Current Visit: No Status: Acute Assessment and Plan: secondary to mass. Consult nutrition. Patient would need PEG tube placement if she is agreeable to that. However, Palliative has been consulted for goals of care, and will likely see patient Monday. (3) Acute exacerbation of chronic obstructive airways disease Current Visit: No Status: Acute (4) Hypertension Current Visit: No Status: Chronic Assessment and Plan: Atenolol, Cardizem (5) Paroxysmal atrial fibrillation Current Visit: No Status: Chronic Assessment and Plan: Cardizem, Digoxin, Atenolol (6) Type II diabetes mellitus Current Visit: No Status: Chronic Assessment and Plan: ISS (7) CAD (coronary artery disease) Current Visit: No Status: Chronic Assessment and Plan: Resume home medications. (8) Diastolic CHF Current Visit: No Status: Chronic Assessment and Plan: Not in acute exacerbation. (9) History of CVA with residual deficit Current Visit: No Status: Chronic - Time Spent with Patient Total time spent is greater than 50% in coordination of care (as documented) at patient's floor/unit and/or counseling patient: Internal Medicine: Result - Labs CBC & Chem 7: 11/24/18 01:57 11/24/18 01:57 Labs: Short CBC 11/24/18 Range/Units 01:57 WBC 11.5 H (4.3-11.1) K/mcL Hgb 14.0 (11.5-15.4) g/dL Hct 44.3 (35.3-44.9) % Plt Count 338 (140-400) K/mcL Neutrophils # 9.4 H (1.6-8.9) K/mcL BMP 11/24/18 01:57 Sodium 137 Potassium 3.4 L Chloride 97 L Carbon Dioxide 27 BUN 8 Creatinine 0.65 Glucose 128 H Calcium 9.4 - Impressions Impressions Barium Swallow X-Ray 11/23/18 09:24 IMPRESSION: 1. Narrowing of the mid thoracic esophagus, corresponding with the appearance of malignancy seen on CT. However, no associated mucosal abnormalities nor findings of fistula formation are identified. 2. Small to moderate sliding hiatal hernia. D/ / Donnie Amador MD / Donnie Amador MD Interpreting Provider: Donnie Amador MD Abdomen/Pelvis CT 11/23/18 18:45 IMPRESSION: 1. 1.8 cm indeterminate hypodensity in the left hepatic lobe not clearly seen on the previous PET-CT from 09/09/2015. Consider further evaluation with liver protocol MRI. 2. 1.1 cm indeterminate hypodensity in the right kidney. Recommend further evaluation with nonemergent renal protocol MRI or CT. 3. Mild nonspecific endometrial thickening measuring up to 1 cm. Consider further evaluation with pelvic ultrasound and/or tissue sampling. 4. Moderate sliding-type hiatal hernia. 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 transplanted heart: [place] heart Associated angina: without angina Qualified Code(s): I25.10 - Atherosclerotic heart disease of [place] coronary artery without angina pectoris (8) Diastolic CHF Qualifiers: Qualified Code(s): I50.32 - Chronic diastolic (congestive) heart failure
[2018-11-24] MEDS: Diltiazem CD (24hr) 180 MG CAPSULE PO SCH (08:35)
[2018-11-24] MEDS: *HR* Digoxin 0.25 MG TABLET PO SCH (08:35)
[2018-11-24] MEDS: Budesonide/Formoterol 80/4.5 1 PUFF INH IH SCH ×2 (10:32→22:08)
[2018-11-24] MEDS: predniSONE 20 MG TABLET PO SCH (16:53)
[2018-11-24] MEDS: Famotidine 20 MG TABLET PO SCH (21:27)
[2018-11-24] MEDS: Fluticasone Propionate Nasal 50 MCG/SPRAY BOTTLE NS SCH (22:40)
[2018-11-25] MEDS: Insulin LISPRO 300 UNITS/3 ML VIAL SQ SCH ×4 (02:28→17:46)
[2018-11-25] MEDS: Ipratropium/Albuterol Neb 3 ML IH SCH ×4 (03:55→22:32)
[2018-11-25 05:39] LABS: Basophils % 0.1 %; Hematocrit 46.3 % (35.3-44.9); Hemoglobin 14.7 g/dL (11.5-15.4); Immature Granulocytes % 0.4 % (0-4); Lymphocytes # 0.6 K/mcL (0.6-4.6); Lymphocytes % 6.9 %; Mean Corpuscular HGB Conc 31.7 g/dL (31.6-35.5); Mean Corpuscular Hemoglobin 26.4 pg (28.0-33.3); Mean Corpuscular Volume 83.3 fL (83.0-100.0); Mean Platelet Volume 9.4 fL (9.4-12.4); Monocytes # 0.4 K/mcL (0.0-1.3); Monocytes % 4.4 %; Neutrophils # 7.2 K/mcL (1.6-8.9); Platelet Count 354 K/mcL (140-400); Red Blood Count 5.56 M/mcL (3.82-4.97); Red Cell Distribution Width 14.6 % (11.5-14.5); Segmented Neutrophils % 88.2 %; White Blood Count 8.2 K/mcL (4.3-11.1)
[2018-11-25 06:00] LABS: BUN/Creatinine Ratio 21 (6-26); Blood Urea Nitrogen 16 mg/dL (8-23); Calcium 9.5 mg/dL (8.6-10.3); Carbon Dioxide 25 mEq/L (23-29); Chloride 97 mEq/L (98-107); Glucose 152 mg/dL (70-105); Osmolality,Calculated 288 (280-300); Potassium 3.5 mEq/L (3.5-5.1); Sodium 137 mEq/L (136-145); eGFR For African Americans > 60 (> 60); eGFR For Non-African Americans > 60 (> 60)
--- NOTE | 2018-11-25 07:55 | Internal Med Progress Note ---
Hospitalist Progress Note - Encounter Date of Encounter: 11/25/18 Time of Encounter: 09:30 - Subjective Interval History: No acute events. No complaints. Breathing continues to improve but she is still SOB and requiring supplemental O2. She denies fevers/chills, CP, n/v. - Exam Vitals: Temp Pulse Resp BP Pulse Ox 98.1 F 99 18 136/89 98 11/25/18 07:46 11/25/18 07:46 11/25/18 07:46 11/25/18 07:46 11/25/18 07:46 Exam: Gen- AAO x3, less distressed compared to yesterday's exam. HENT- MMM. No palpable masses, no tracheal deviation Neuro- CN II-XII in tact, no focal deficits. CV- irregularly irregular rhythm with tachycardia Lungs- Transmitted upper airway sounds, better air exchange since yesterday exam, expiratory wheezing throughout GI- abdomen nontener. normoactive bowel sounds Extremities- no peripheral edema. Pulses 2+ in dorsalis pedis Skin- no rashes or lesions noted - Assessment and Plan (1) Squamous cell carcinoma Current Visit: Yes Status: Acute Assessment and Plan: Bronchoscopy done prior to admission showing large mass in right main stem bronchus. Likely a recurrance of squamous cell carcinoma from 2010. Prognosis is poor. Discussed situation with patient and family at bedside. Based on Oncology and Rad/Onc evaluation, this is likely trachea as primary source. Discussed a Palliative therapy consult for goals of care, which they are agreeable to. Radiation/Oncology discussed with family about seeing them on Monday morning to help treat large mass to try to improve dysphagia. Rad/Onc eval tomorrow Palliative consultation available tomorrow as well. (2) Dysphagia Current Visit: No Status: Acute Assessment and Plan: secondary to mass. Consult nutrition. Patient would need PEG tube placement if she is agreeable to that. However, Palliative has been consulted for goals of care, and will likely see patient to [facility] (3) Acute exacerbation of chronic obstructive airways disease Current Visit: No Status: Acute Assessment and Plan: Continue Duo Nebs, Prednisone. Monitor off antibiotics, if develops signs of infection, will resume. (4) Hypertension Current Visit: No Status: Chronic Assessment and Plan: Atenolol, Cardizem (5) Paroxysmal atrial fibrillation Current Visit: No Status: Chronic Assessment and Plan: Cardizem, Digoxin, Atenolol (6) Type II diabetes mellitus Current Visit: No Status: Chronic Assessment and Plan: ISS (7) CAD (coronary artery disease) Current Visit: No Status: Chronic Assessment and Plan: Resume home medications. (8) Diastolic CHF Current Visit: No Status: Chronic Assessment and Plan: Not in acute exacerbation. (9) History of CVA with residual deficit Current Visit: No Status: Chronic - Time Spent with Patient Total time spent is greater than 50% in coordination of care (as documented) at patient's floor/unit and/or counseling patient: Internal Medicine: Result - Labs CBC & Chem 7: 11/25/18 05:19 11/25/18 05:19 Labs: Short CBC 11/25/18 Range/Units 05:19 WBC 8.2 (4.3-11.1) K/mcL Hgb 14.7 (11.5-15.4) g/dL Hct 46.3 H (35.3-44.9) % Plt Count 354 (140-400) K/mcL Neutrophils # 7.2 (1.6-8.9) K/mcL BMP 11/25/18 05:19 Sodium 137 Potassium 3.5 Chloride 97 L Carbon Dioxide 25 BUN 16 Creatinine 0.76 Glucose 152 H Calcium 9.5 Consult Discharge Plan - Plan Referrals: Yolette Fabian, ODETTE [Primary Care Provider] - (2) Dysphagia Qualifiers: Dysphagia type: unspecified Qualified Code(s): R13.10 - Dysphagia, unspecified (4) Hypertension Qualifiers: Hypertension type: essential hypertension Qualified Code(s): I10 - Essential (primary) hypertension (6) Type II diabetes mellitus Qualifiers: Diabetes mellitus intermediate designer insulin use: with assisted use Diabetes mellitus complication status: without complication Qualified Code(s): E11.9 - Type 2 diabetes mellitus without complications; Z79.4 - half-way (current) use of insulin (7) CAD (coronary artery disease) Qualifiers: Coronary Disease-Associated Artery/Lesion type: [place] artery [place] vs. transplanted heart: [place] heart Associated angina: without angina Qualified Code(s): I25.10 - Atherosclerotic heart disease of [place] coronary artery without angina pectoris
[2018-11-25] MEDS: Aspirin Enteric Coated 81 MG Tablet PO SCH (09:20)
[2018-11-25] MEDS: Diltiazem CD (24hr) 180 MG CAPSULE PO SCH (09:20)
[2018-11-25] MEDS: Famotidine 20 MG TABLET PO SCH ×2 (09:20→20:38)
[2018-11-25] MEDS: predniSONE 20 MG TABLET PO SCH (09:20)
[2018-11-25] MEDS: *HR* Digoxin 0.25 MG TABLET PO SCH (09:21)
[2018-11-25] MEDS: Fluticasone Propionate Nasal 50 MCG/SPRAY BOTTLE NS SCH ×2 (09:24→20:39)
[2018-11-25] MEDS: Budesonide/Formoterol 80/4.5 1 PUFF INH IH SCH ×2 (10:12→22:30)
[2018-11-25] MEDS ORDERED: *HR* Labetalol 20 MG/4 ML SYRINGE IVP PRN (16:24)
[2018-11-26] MEDS: Insulin LISPRO 300 UNITS/3 ML VIAL SQ SCH ×4 (00:19→17:43)
[2018-11-26] MEDS: Ipratropium/Albuterol Neb 3 ML IH SCH ×4 (04:07→21:50)
[2018-11-26 06:22] LABS: Basophils % 0.1 %; Eosinophils % 0.2 %; Hematocrit 44.9 % (35.3-44.9); Hemoglobin 14.5 g/dL (11.5-15.4); Immature Granulocytes % 0.4 % (0-4); Lymphocytes # 1.5 K/mcL (0.6-4.6); Lymphocytes % 11.9 %; Mean Corpuscular HGB Conc 32.3 g/dL (31.6-35.5); Mean Corpuscular Hemoglobin 26.4 pg (28.0-33.3); Mean Corpuscular Volume 81.6 fL (83.0-100.0); Mean Platelet Volume 9.9 fL (9.4-12.4); Monocytes # 1.4 K/mcL (0.0-1.3); Monocytes % 11.4 %; Neutrophils # 9.2 K/mcL (1.6-8.9); Platelet Count 363 K/mcL (140-400); Red Cell Distribution Width 14.5 % (11.5-14.5); White Blood Count 12.2 K/mcL (4.3-11.1)
[2018-11-26 06:41] LABS: BUN/Creatinine Ratio 28 (6-26); Blood Urea Nitrogen 22 mg/dL (8-23); Calcium 9.5 mg/dL (8.6-10.3); Carbon Dioxide 29 mEq/L (23-29); Chloride 98 mEq/L (98-107); Glucose 118 mg/dL (70-105); Osmolality,Calculated 292 (280-300); Potassium 3.2 mEq/L (3.5-5.1); Sodium 139 mEq/L (136-145); eGFR For African Americans > 60 (> 60); eGFR For Non-African Americans > 60 (> 60)
--- NOTE | 2018-11-26 08:33 | Internal Med Progress Note ---
<Alex Jang F - Last Filed: 11/26/18 15:01> Hospitalist Progress Note - Encounter Date of Encounter: 11/26/18 Time of Encounter: 08:32 - Subjective Interval History: Patient was seen and examined at bedside. No acute events overnight. Patient does not have any complaints this morning. Patient denies any chest pain, shortness of breath, abdominal pain, nausea, vomiting, fevers, chills. - Exam Vitals: Temp Pulse Resp BP Pulse Ox 98.0 F 69 16 124/80 94 11/26/18 07:52 11/26/18 07:52 11/26/18 07:52 11/26/18 07:52 11/26/18 07:52 Exam: GEN: Well-appearing, NAD, conversant. HEAD: Normocephalic, atraumatic. EYES: PERRL, EOMI, anicteric. ENT: MMM. oropharynx without erythema or drainage. NECK: Supple. No LAD. No stiffness or restricted ROM. No tracheal deviation. HEART: Regular rate and regular rhythm, normal S1/S2, no m/r/g. LUNGS: Good air exchange bilaterally. Upper airway congestion. ABDO: Soft, nontender, nondistended with active bowel sounds. : No suprapubic tenderness or CVA tenderness. BACK: No obvious stepoffs or deformities. EXT: Without cyanosis, clubbing or edema. SKIN: Warm and dry without any rash. NEURO: Grossly nonfocal. Alert and oriented, moving all 4 extremities. CN not formally tested but appear grossly intact. PSYCH: Normal affect, no depressed or anxious mood. - Assessment and Plan (1) Squamous cell carcinoma Current Visit: Yes Status: Acute Assessment and Plan: Bronchoscopy done prior to admission showing large mass in the right mainstem bronchus. Pathology shows likely recurrence of squamous cell carcinoma from 2010. Poor prognosis. Likely trachea as primary source. CT surgery unlikely to resect. Rad/onc recommends palliative radiation for afua atment of mass. Plan: - Palliative radiation today - Follow up goals of care discussion with patient, family, and palliative - Walk test to determine disposition (2) Dysphagia Current Visit: Yes Status: Acute Assessment and Plan: Occurred secondary to obstruction by mass. Plan: - Consult nutrition - Current diet advanced chopped meat - May need PEG tube placement outpatient if patient is agreeable - Follow up with palliative (3) Diabetes Current Visit: Yes Status: Chronic Assessment and Plan: Plan: - SSI, hypoglycemia protocol - q6 accuchecks (4) Hypertension Current Visit: Yes Status: Chronic Assessment and Plan: Plan: - Resume home meds: cardizem, atenolol (5) CAD (coronary artery disease) Current Visit: Yes Status: Chronic Assessment and Plan: Resume home medications. - ASA/plavix (6) Hyperlipidemia Current Visit: No Status: Chronic Assessment and Plan: Resume home medications. (7) Paroxysmal atrial fibrillation Current Visit: Yes Status: Chronic Assessment and Plan: Resume home medications: - Cardizem, digoxin, atenolol - Currently asymptomatic, will continue to monitor (8) Acute exacerbation of chronic obstructive airways disease Current Visit: Yes Status: Acute Assessment and Plan: Continue to monitor for dyspnea, signs of infection - Antibiotics on levaquin - Continue scheduled duonebs, prednisone (9) Diastolic CHF Current Visit: No Status: Chronic Assessment and Plan: Not in acute exacerbation. DVT Prophylaxis: DVT ppx: SCDs Activity: as tolerated Fluids: none Electrolytes: replete as necessary Nutrition: advanced soft diet chopped meat GI ppx: PPI Lines: 1x PIV Consults: heme/onc, rad/onc, palliative, CT surgery, PT/OT, nutrition, pastoral/social work coordinator Code: FULL CODE Dispo: pending goals of care discussion - Time Spent with Patient Total time spent is greater than 50% in coordination of care (as documented) at patient's floor/unit and/or counseling patient: less than 15 minutes Plan of Care Discussed with: patient Internal Medicine: Result - Labs CBC & Chem 7: 11/26/18 05:24 11/26/18 05:24 Labs: Short CBC 11/26/18 Range/Units 05:24 WBC 12.2 H (4.3-11.1) K/mcL Hgb 14.5 (11.5-15.4) g/dL Hct 44.9 (35.3-44.9) % Plt Count 363 (140-400) K/mcL Neutrophils # 9.2 H (1.6-8.9) K/mcL BMP 11/26/18 05:24 Sodium 139 Potassium 3.2 L Chloride 98 Carbon Dioxide 29 BUN 22 Creatinine 0.78 Glucose 118 H Calcium 9.5 Consult Discharge Plan - Plan Referrals: Rui,Yolette, CHEMICAL PROCESS ENGINEER [Primary Care Provider] - <Luis Enrique Tomas - Last Filed: 11/26/18 17:59> Hospitalist Progress Note - Encounter Date of Encounter: 11/26/18 - Exam Vitals: Temp Pulse Resp BP Pulse Ox 97.9 F 71 16 120/75 97 11/26/18 16:44 11/26/18 16:44 11/26/18 16:44 11/26/18 16:44 11/26/18 16:44 - Assessment and Plan (1) Squamous cell carcinoma Current Visit: Yes Status: Acute (2) Dysphagia Current Visit: Yes Status: Acute (3) Acute exacerbation of chronic obstructive airways disease Current Visit: Yes Status: Acute (4) Hypertension Current Visit: Yes Status: Chronic (5) Paroxysmal atrial fibrillation Current Visit: Yes Status: Chronic (6) Type II diabetes mellitus Current Visit: No Status: Chronic (7) CAD (coronary artery disease) Current Visit: Yes Status: Chronic (8) Diastolic CHF Current Visit: No Status: Chronic (9) History of CVA with residual deficit Current Visit: No Status: Chronic - Time Spent with Patient Total time spent is greater than 50% in coordination of care (as documented) at patient's floor/unit and/or counseling patient: Internal Medicine: Result - Labs CBC & Chem 7: 11/26/18 05:24 11/26/18 05:24 Labs: Short CBC 11/26/18 Range/Units 05:24 WBC 12.2 H (4.3-11.1) K/mcL Hgb 14.5 (11.5-15.4) g/dL Hct 44.9 (35.3-44.9) % Plt Count 363 (140-400) K/mcL Neutrophils # 9.2 H (1.6-8.9) K/mcL BMP 11/26/18 05:24 Sodium 139 Potassium 3.2 L Chloride 98 Carbon Dioxide 29 BUN 22 Creatinine 0.78 Glucose 118 H Calcium 9.5 - Attending Attestation examined this patient and my medical decision-making was reviewed with the resident physician. I agree with the documented findings, disposition and treatment plan as described except to the extent set forth below. ___ <Alex Jang - Last Filed: 11/26/18 15:01> (2) Dysphagia Qualifiers: Dysphagia type: unspecified Qualified Code(s): R13.10 - Dysphagia, unspecified (3) Diabetes Qualifiers: Diabetes mellitus type: type 2 Diabetes mellitus long term care social worker insulin use: with penitentiary use Diabetes mellitus complication status: with hyperglycemia Qualified Code(s): E11.65 - Type 2 diabetes mellitus with hyperglycemia; Z79.4 - [facility] (current) use of insulin (4) Hypertension Qualifiers: Hypertension type: essential hypertension Qualified Code(s): I10 - Essential (primary) hypertension (5) CAD (coronary artery disease) Qualifiers: Coronary Disease-Associated Artery/Lesion type: [place] artery [place] vs. transplanted heart: [place] heart Associated angina: without angina Qualified Code(s): I25.10 - Atherosclerotic heart disease of [place] coronary artery without angina pectoris (6) Hyperlipidemia Qualifiers: Hyperlipidemia type: unspecified Qualified Code(s): E78.5 - Hyperlipidemia, unspecified <Luis Enrique Tomas - Last Filed: 11/26/18 17:59> (2) Dysphagia Qualifiers: Dysphagia type: unspecified Qualified Code(s): R13.10 - Dysphagia, unspecified (4) Hypertension Qualifiers: Hypertension type: essential hypertension Qualified Code(s): I10 - Essential (primary) hypertension (6) Type II diabetes mellitus Qualifiers: Diabetes mellitus penitentiary insulin use: with penitentiary use Diabetes mellitus complication status: without complication Qualified Code(s): E11.9 - Type 2 diabetes mellitus without complications; Z79.4 - [facility] (current) use of insulin (7) CAD (coronary artery disease) Qualifiers: Coronary Disease-Associated Artery/Lesion type: [place] artery [place] vs. transplanted heart: [place] heart Associated angina: without angina Qualified Code(s): I25.10 - Atherosclerotic heart disease of [place] coronary artery without angina pectoris
[2018-11-26] MEDS: predniSONE 20 MG TABLET PO SCH (09:00)
[2018-11-26] MEDS: Diltiazem CD (24hr) 180 MG CAPSULE PO SCH (09:00)
[2018-11-26] MEDS: *HR* Digoxin 0.25 MG TABLET PO SCH (09:00)
[2018-11-26] MEDS: Aspirin Enteric Coated 81 MG Tablet PO SCH (09:00)
[2018-11-26] MEDS: Furosemide 40 MG TABLET PO SCH (09:00)
[2018-11-26] MEDS: Famotidine 20 MG TABLET PO SCH ×2 (09:00→20:19)
[2018-11-26] MEDS: Fluticasone Propionate Nasal 50 MCG/SPRAY BOTTLE NS SCH ×2 (09:04→20:19)
--- NOTE | 2018-11-26 09:28 | Palliative - Consult Note ---
<Charmaine Stevenson - Last Filed: 11/26/18 12:23> Date of Encounter: 11/26/18 Time of Encounter: 11:36 - Assessment and Plan (1) Goals of care, counseling/discussion Current Visit: Yes Status: Acute Assessment and plan: Spoke with patient and her son Fernando regarding patients goals of care. Patient understands that she has cancer and that radiation is being recommended to try and shrink the tumor. It is unclear if she fully understands her poor prognosis or the risks associated with radiation. She does not have a medical POA. She has 5 sons, 4 of which who are actively involved in her care. All of her sons live within traveling distance. Carmen lives a lone at home and her daughter in-law Nisa helps the most with her medical needs and decisions, Fernando confirmed this. We are arranging for a family meeting this afternoon with any of the family that are able to attend to discuss the patients goals of care further. We briefly discussed code status, and Carmen states that she would want CPR and would be agreeable to intubation if necessary. Patient will remain a full code for now, pending further discussion. (2) Palliative care encounter Current Visit: Yes Status: Acute (3) Dysphagia Current Visit: Yes Status: Acute Assessment and plan: Speech Therapy evaluated this morning with bedside swallow evaluation and recommended continuing advanced soft textures with thin liquids Patient denies any pain, nausea, or vomiting Qualifiers: Dysphagia type: unspecified Qualified Code(s): R13.10 - Dysphagia, unspecified (4) Squamous cell carcinoma Current Visit: Yes Status: Acute Assessment and plan: Confluent subcarinal/left hilar squamous cell carcinoma involving elizabeth and esophagus, suspected to be recurrent from SCC of trachea Rad/Onc planning for palliative radiation, planning for CT simulation today (5) Acute exacerbation of chronic obstructive airways disease Current Visit: Yes Status: Acute Assessment and plan: Management per primary team (6) History of tracheal cancer Current Visit: Yes Status: Chronic (7) History of colon cancer Current Visit: Yes Status: Chronic (8) (HFpEF) heart failure with preserved ejection fraction Current Visit: Yes Status: Chronic Qualifiers: Heart failure chronicity: chronic Qualified Code(s): I50.32 - Chronic diastolic (congestive) heart failure (9) CAD (coronary artery disease) Current Visit: Yes Status: Chronic Qualifiers: Coronary Disease-Associated Artery/Lesion type: [place] artery [place] vs. transplanted heart: [place] heart Associated angina: without angina Qualified Code(s): I25.10 - Atherosclerotic heart disease of [place] coronary artery without angina pectoris (10) Paroxysmal atrial fibrillation Current Visit: No Status: Chronic (11) Type II diabetes mellitus Current Visit: No Status: Chronic Qualifiers: Diabetes mellitus termite helper insulin use: with termite helper use Diabetes mellitus complication status: without complication Qualified Code(s): E11.9 - Type 2 diabetes mellitus without complications; Z79.4 - [facility] (current) use of insulin (12) History of CVA with residual deficit Current Visit: No Status: Chronic (13) Hypothyroidism Current Visit: No Status: Chronic Qualifiers: Hypothyroidism type: unspecified Qualified Code(s): E03.9 - Hypothyroidism, unspecified Palliative-CN HPI - Data of Consult Consult date: 11/26/18 Requesting Physician: Luis Enrique Tomas MD Primary Care Provider: Yolette Fabian - Consult Narrative Reason for consult: [facility] History of present illness: Ms. 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 EGD, Bronchoscopy and EBUS were performed initially and biopsies were retrieved. Tracheal/esophageal mass was found to be squamous cell carcinoma, likely recurrence from prior tracheal SCC. CT surg found the mass to be unresectable and Rad/Onc has limited treatment options given history of prior radiation. Palliative radiation was offered due to obstructive symptoms, however may cause worsening dysphagia. CT simulation planned for today at the cancer center to treat the large invasive mass to potentially improve her dysphagia and bronchial obstruction. Palliative care was consulted to discuss patient's goals of care and possible PEG placement. Pat Patient sitting comfortably in bed with her son Fernando and Grandnieves at bedside. Patient denies pain, nausea, or vomiting. She admits to some difficulty swal lowing, but states that she is able to keep food down currently. CC: Luis Enrique Tomas MD - Time Spent with Patient Time: Total time spent is greater than 50% in coordination of care (as documented) at patient's floor/unit and/or counseling patient: Past Med Surg Social Fam HX - Past Medical History Medical history: arthritis, asthma, atrial fibrillation, cancer, CHF, COPD, coronary artery disease, CVA, diabetes, GERD, hyperlipidemia, hypertension, renal disease, thyroid disease Additional medical history: hiatial hernia,memory loss, Psychiatric history: anxiety, depression - Past Surgical History Surgical History: other Additional surgical history: peg tube insertion,tubal,nasal,bowl resection - Social History Smoking Status: Former smoker Smokeless Tobacco Status: No Alcohol use: none Drug use: none - Family History Mother Adopted: No Family Member Ethnicity: Non- Living Status: Hx Family Cardiac Disorders: Yes (HTN) Hx Family Respiratory Disorders: No Hx Family Cancer: No Hx Family GI Disorders: No Hx Family Endocrine Disorder: Yes (DM) Hx Family Neuromuscular Disorders: No Hx Family Neurologic Disorders: No Hx Family HEENT Disorders: No Hx Family Autoimmune Disorders: No Father Adopted: No Family Member Ethnicity: Non- Living Status: Hx Family Cardiac Disorders: Yes Brother Adopted: No Family Member Ethnicity: Non- Living Status: Hx Family Cardiac Disorders: Yes Medications and Allergies Albuterol Neb [Proventil Neb] 2.5 mg IH TID PRN 11/22/18 [History] Albuterol Sulfate [Ventolin Hfa] 2 puff PO Q6H PRN 11/22/18 [History] Aspirin [Lo-Dose Aspirin EC] 81 mg PO DAILY 11/22/18 [History] Atenolol [Tenormin] 50 mg PO BID 11/22/18 [History] Atorvastatin [Lipitor] 40 mg PO QPM 11/22/18 [History] Bisacodyl [Woman's Laxative] 5 mg PO QPM 11/22/18 [History] Budesonide/Formoterol 80/4.5 [Symbicort 80/4.5] 2 puff PO BID 11/22/18 [History] Bumetanide 0.5 mg PO DAILY 11/22/18 [History] Clopidogrel [Plavix] 75 mg PO DAILY 11/22/18 [History] Digoxin [Lanoxin] 0.25 mg PO QAM 11/22/18 [History] Diltiazem HCl [Tiazac] 180 mg PO DAILY 11/22/18 [History] Docusate Sodium [Dulcolax Stool Softener] 100 mg PO DAILY 11/22/18 [History] Ergocalciferol (VITAMIN D2) [Vitamin D2] 50,000 units PO MO 11/22/18 [History] Ferrous Sulfate 325 mg PO DAILY 11/22/18 [History] Fluticasone Propionate Nasal [Flonase] 50 mcg NS BID 11/22/18 [History] Furosemide [Lasix] 40 mg PO DAILY 11/22/18 [History] Gabapentin [Neurontin] 800 mg PO BID 11/22/18 [History] Insulin NPH Hum/Reg Insulin Hm [Novolin 70-30 Flexpen] 25 units SQ BID 11/22/18 [History] Levothyroxine Sodium [Tirosint] 100 mcg PO QAM 11/22/18 [History] Meloxicam [Mobic] 15 mg PO DAILY 11/22/18 [History] Montelukast [Singulair] 10 mg PO QPM 11/22/18 [History] Omeprazole [PriLOSEC] 40 mg PO DAILY 11/22/18 [History] Potassium Chloride [Klor-Con 10] 10 meq PO DAILY 11/22/18 [History] Tiotropium [Spiriva] 18 mcg IH DAILY 11/22/18 [History] guaiFENesin [Mucus Relief ER] 600 mg PO Q12H PRN 11/22/18 [History] raNITIdine HCl [Zantac] 150 mg PO BID 11/22/18 [History] Allergy/AdvReac Type Severity Reaction Status Date / Time No Known Allergies Allergy Verified 11/22/18 11:07 Review of systems: per HPI Palliative Care-Exam - Constitutional Vitals: Temp Pulse Resp BP Pulse Ox 98.0 F 69 16 124/80 94 11/26/18 07:52 11/26/18 07:52 11/26/18 07:52 11/26/18 07:52 11/26/18 07:52 Exam: Gen: Vitals noted. No acute distress. Her voice is very hoarse. Eyes: anicteric sclerae, moist conjunctivae HENT: Atraumatic; oral mucosa moist Cardiac: rate controlled, irrgular rhythm, no murmur, +S1/S2 Pulmonary: course breath sounds throughout MSK: ROM intact, patient was able to ambulate up to bedside commode with assistance of her walker and nursing Extremities: no BLE edema, no cyanosis or clubbing Skin: warm, dry, intact Psych: Appropriate mood and behavior. A&Ox3 (person, place, day). Patient understood that she has cancer and radiation is being down to attempt to shrink her tumor Internal Medicine - CN: Reslt - Labs CBC & Chem 7: 11/26/18 05:24 11/26/18 05:24 Labs: Short CBC 11/26/18 Range/Units 05:24 WBC 12.2 H (4.3-11.1) K/mcL Hgb 14.5 (11.5-15.4) g/dL Hct 44.9 (35.3-44.9) % Plt Count 363 (140-400) K/mcL Neutrophils # 9.2 H (1.6-8.9) K/mcL BMP 11/26/18 05:24 Sodium 139 Potassium 3.2 L Chloride 98 Carbon Dioxide 29 BUN 22 Creatinine 0.78 Glucose 118 H Calcium 9.5 Consult Discharge Plan - Plan Referrals: Yolette Fabian, ODETTE [Primary Care Provider] - Palliative Quality Palliative Quality: Screen for Code Status: Yes, Screen for Goals of Care: Yes, Screen for Pain: Yes, If Pain Regimen Started, Initiate Bowel Regimen: Yes, Screen for Nausea/Vomitting: Yes Code Status: 11/22/18 16:30 Resuscitation Status: Active [RES] Routine Comment: Resuscitation Status: Full Code Palliative Scale - Palliative Performance Scale How ambulatory is this patient?: Mainly sit / lie What is patient's level of activity and evidence of disease?: Unable normal job/work, Significant disease How much self-care assistance does patient require?: Considerable assistance required How much oral intake does the patient have?: Normal or reduced What is this patient's level of consciousness?: Full or confusion Palliative Performance Score: 50 % <Marti Emanuel - Last Filed: 11/26/18 16:37> Date of Encounter: 11/26/18 Palliative-CN HPI - Data of Consult Requesting Physician: Luis Enrique Tomas MD Primary Care Provider: Yolette Fabian - Consult Narrative History of present illness: Ms. Celaya is a 73 year old female CC: Luis Enrique Tomas MD - Time Spent with Patient Time: Total time spent is greater than 50% in coordination of care (as documented) at patient's floor/unit and/or counseling patient: Palliative Care-Exam - Constitutional Vitals: Temp Pulse Resp BP Pulse Ox 98.0 F 69 16 124/80 96 11/26/18 07:52 11/26/18 07:52 11/26/18 16:07 11/26/18 07:52 11/26/18 16:07 Internal Medicine - CN: Reslt - Labs CBC & Chem 7: 11/26/18 05:24 11/26/18 05:24 Labs: Short CBC 11/26/18 Range/Units 05:24 WBC 12.2 H (4.3-11.1) K/mcL Hgb 14.5 (11.5-15.4) g/dL Hct 44.9 (35.3-44.9) % Plt Count 363 (140-400) K/mcL Neutrophils # 9.2 H (1.6-8.9) K/mcL BMP 11/26/18 05:24 Sodium 139 Potassium 3.2 L Chloride 98 Carbon Dioxide 29 BUN 22 Creatinine 0.78 Glucose 118 H Calcium 9.5 - Attending Attestation I examined this patient and my medical decision-making was reviewed with Dr. Stevenson. I agree with the documented findings, disposition and treatment plan as described except to the extent set forth below. 1510 to 1609: Met with pt, son Fernando and [id number] Nisa. Discussed current medical condition, the recurrent tracheal ca, trajectory of illness, treatment options and overall poor prognosis. Patient is aware of her extensive disease, and was offered 5 radiation therapies. Explained the side effects of the radiations, including worsening of dysphagia, and the likelihood that pt will need a PEG tube. Pt had a PEG tube in the past and did not like it. Patient has a son that is incarcerated at this time and may be released in February. Pt's goal is to live long enough to see him out of [facility], and she wants to do "what it takes to prolong her life". She agreed with radiations and PEG tube if necessary. Discussed code status, explained that full code is contro-indicated in patients with a terminal condition. Patient opted for DNRCCA. Order placed in the chart, and form to be placed. Palliative care will continue to follow tomorrow. Palliative Quality Code Status: 11/22/18 16:30 Resuscitation Status: Active [RES] Routine Comment: Resuscitation Status: Full Code
[2018-11-26] MEDS: Budesonide/Formoterol 80/4.5 1 PUFF INH IH SCH ×2 (10:43→21:50)
--- NOTE | 2018-11-26 11:43 | Rad Onc Dictation ---
Radiation Oncology Dictation Date of Service: 11/26/18 - Oncology History Comments: Diagnosis: 1. 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 2. Adenocarcinoma the sigmoid colon, pT2 pN0, diagnosed 2014 3. 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 Salomon) 11/22/2018: Bronchoscopy with endobronchial ultrasound and biopsy (Dr. Wade) 11/22/2018: EGD (Dr. Salomon) - Procedure Note Comments: Patient seen in the radiation oncology department. Underwent CT simulation for treatment planning purposes for palliative radiotherapy to mediastinal mass. Plan will be to deliver 5 fractions of palliative radiotherapy starting on 11/28/2018. Previous can be done inpatient or outpatient. Discussed radiology and pathology findings with patient's [id number], Nisa. Nisa will be coming to the hospital later this afternoon. Oleg Lama MD
[2018-11-26] MEDS: levoFLOXacin 750 MG TABLET PO SCH (13:08)
--- NOTE | 2018-11-26 16:28 | Oncology Inp Progress Note ---
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 Patient was seen by Dr. Goznalez with CT surg who did not feel that this is a resectable mass, and felt that esophageal stenting may be poor option as well. Rad-onc has been consulted as well, . 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 Radiation oncology was consulted and feel that palliative radiation may be feasible and warranted. One major concern is that it may make the patient's dysphagia worse, so it may be appropriate to consider palliative PEG tube placement in the near future. We did try to discuss this with the patient today, however she did not seem to have much on opinion about this. It does seem like she is still not eating very much. Discussed with the primary team that it may be appropriate to consider PEG tube placement, especially considering the fact that the patient will be discharged with plans for starting radiation to the esophagus. Plan to follow-up further. (2) COPD (chronic obstructive pulmonary disease) Current Visit: No Status: Chronic Assessment and plan: History of COPD with airway obstruction worsened but large mass which is obstructing main bronchus. Management per primary team. Qualifiers: COPD type: unspecified COPD Qualified Code(s): J44.9 - Chronic obstructive pulmonary disease, unspecified (3) Atrial fibrillation with rapid ventricular response Current Visit: No Status: Acute Assessment and plan: Afib RVR on Cardizem, Digoxin, Atenolol. Rate is under 110 at this time. Management per primary team. 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 She was seen by Rad onc today for CT Stimulation for treatment planning which should be started on Monday. She has no acute complaints today. She does not seem to be eating a significant amount. Oncology: Obj Data - Labs CBC & Chem 7: 11/26/18 05:24 11/26/18 05:24 Consult Discharge Plan - Plan Referrals: Yolette Fabian CNP [Primary Care Provider] - Inpatient Charges Provider: Dr. Wendy Almaraz <Ismael Almaraz S - Last Filed: 11/27/18 09:22> Date of Encounter: 11/26/18 Oncology: Obj Data - Labs CBC & Chem 7: 11/27/18 05:04 11/27/18 05:04 Inpatient Charges Provider: Dr. Wendy Almaraz Follow up - Inpatient: [id number] - Attending Attestation I examined this patient and my medical decision-making was reviewed with Dr. Daquan Chiu. I agree with the documented findings, disposition and treatment plan as described except to the extent set forth below. 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 She has 90% obstruction of the right main bronchus She is evaluated by Dr. Lama. She had previous concurrent chemoradiation with cisplatin. The recurrence is below the radiation field. The plan is to deliver 5 doses of palliative radiation starting 11/28/2018 She has lost weight steadily from 82 kg in 2017 to about 68 kg now. She has lost more weight in the last 3 months about 5 kg. We will continue to watch her closely and consider a PEG tube for feeding purposes Currently she is oxygen dependent for breathing She does have dementia and its hard to obtain history. Looks like she is able to keep soft food and ice creams down but not eating much solid food. Swallowing evaluation has cleared her for oral feedings
[2018-11-27] MEDS: Insulin LISPRO 300 UNITS/3 ML VIAL SQ SCH ×3 (00:55→12:17)
[2018-11-27] MEDS: Ipratropium/Albuterol Neb 3 ML IH SCH ×2 (04:28→10:05)
[2018-11-27 05:45] LABS: Basophils % 0.1 %; Eosinophils % 0.2 %; Hematocrit 48.3 % (35.3-44.9); Hemoglobin 15.1 g/dL (11.5-15.4); Immature Granulocytes % 0.5 % (0-4); Lymphocytes # 1.3 K/mcL (0.6-4.6); Lymphocytes % 12.1 %; Mean Corpuscular HGB Conc 31.3 g/dL (31.6-35.5); Mean Corpuscular Hemoglobin 26.3 pg (28.0-33.3); Mean Corpuscular Volume 84.1 fL (83.0-100.0); Mean Platelet Volume 9.7 fL (9.4-12.4); Monocytes # 1.5 K/mcL (0.0-1.3); Monocytes % 13.1 %; Neutrophils # 8.2 K/mcL (1.6-8.9); Platelet Count 343 K/mcL (140-400); Red Blood Count 5.74 M/mcL (3.82-4.97); Red Cell Distribution Width 14.7 % (11.5-14.5); White Blood Count 11.1 K/mcL (4.3-11.1)
[2018-11-27 06:10] LABS: Alanine Aminotransferase 8 Units/L (7-52); Albumin 3.7 g/dL (3.5-5.7); Albumin/Globulin Ratio 1.5 (1.1-2.2); Alkaline Phosphatase 95 Units/L (34-104); Aspartate Amino Transferase 10 Units/L (13-39); BUN/Creatinine Ratio 29 (6-26); Bilirubin,Total 0.7 mg/dL (0.3-1.0); Blood Urea Nitrogen 26 mg/dL (8-23); Calcium 9.5 mg/dL (8.6-10.3); Carbon Dioxide 29 mEq/L (23-29); Chloride 101 mEq/L (98-107); Globulin 2.5 g/dL (2.4-3.5); Glucose 121 mg/dL (70-105); Osmolality,Calculated 300 (280-300); Potassium 3.9 mEq/L (3.5-5.1); Sodium 142 mEq/L (136-145); Total Protein 6.2 g/dL (6.4-8.9); eGFR For African Americans > 60 (> 60); eGFR For Non-African Americans > 60 (> 60)
[2018-11-27] MEDS: predniSONE 20 MG TABLET PO SCH (09:52)
[2018-11-27] MEDS: Famotidine 20 MG TABLET PO SCH (09:53)
[2018-11-27] MEDS: Aspirin Enteric Coated 81 MG Tablet PO SCH (09:53)
[2018-11-27] MEDS: levoFLOXacin 750 MG TABLET PO SCH (09:53)
[2018-11-27] MEDS: Diltiazem CD (24hr) 180 MG CAPSULE PO SCH (09:53)
[2018-11-27] MEDS: Furosemide 40 MG TABLET PO SCH (09:53)
[2018-11-27] MEDS: *HR* Digoxin 0.25 MG TABLET PO SCH (09:53)
[2018-11-27] MEDS: Budesonide/Formoterol 80/4.5 1 PUFF INH IH SCH (10:05)
--- NOTE | 2018-11-27 10:38 | Discharge Summary ---
Orders not resulted at time of discharge: Pending orders 11/22/18 12:11 Surgical Pathology [PTH] Routine Date of Encounter: 11/27/18 Time of Encounter: 10:36 Hospital course: Ms. Celaya is a 73 year old female - Time Spent with Patient Total time spent providing and/or coordinating discharge services: - Discharge Medications Prescriptions: No Action Fluticasone Propionate Nasal [Flonase] 50 mcg NS BID Albuterol Sulfate [Ventolin Hfa] 2 puff PO Q6H PRN PRN Reason: Shortness Of Breath Furosemide [Lasix] 40 mg PO DAILY guaiFENesin [Mucus Relief ER] 600 mg PO Q12H PRN PRN Reason: Congestion Ergocalciferol (VITAMIN D2) [Vitamin D2] 50,000 units PO MO Budesonide/Formoterol 80/4.5 [Symbicort 80/4.5] 2 puff PO BID Tiotropium [Spiriva] 18 mcg IH DAILY raNITIdine HCl [Zantac] 150 mg PO BID Potassium Chloride [Klor-Con 10] 10 meq PO DAILY Omeprazole [PriLOSEC] 40 mg PO DAILY Montelukast [Singulair] 10 mg PO QPM Meloxicam [Mobic] 15 mg PO DAILY Insulin NPH Hum/Reg Insulin Hm [Novolin 70-30 Flexpen] 25 units SQ BID Levothyroxine Sodium [Tirosint] 100 mcg PO QAM Gabapentin [Neurontin] 800 mg PO BID Ferrous Sulfate 325 mg PO DAILY Docusate Sodium [Dulcolax Stool Softener] 100 mg PO DAILY Digoxin [Lanoxin] 0.25 mg PO QAM Clopidogrel [Plavix] 75 mg PO DAILY Bumetanide 0.5 mg PO DAILY Bisacodyl [Woman's Laxative] 5 mg PO QPM Atorvastatin [Lipitor] 40 mg PO QPM Atenolol [Tenormin] 50 mg PO BID Aspirin [Lo-Dose Aspirin EC] 81 mg PO DAILY Albuterol Neb [Proventil Neb] 2.5 mg IH TID PRN PRN Reason: Shortness Of Breath Diltiazem HCl [Tiazac] 180 mg PO DAILY Home Medications: Albuterol Neb [Proventil Neb] 2.5 mg IH TID PRN 11/22/18 [History] Albuterol Sulfate [Ventolin Hfa] 2 puff PO Q6H PRN 11/22/18 [History] Aspirin [Lo-Dose Aspirin EC] 81 mg PO DAILY 11/22/18 [History] Atenolol [Tenormin] 50 mg PO BID 11/22/18 [History] Atorvastatin [Lipitor] 40 mg PO QPM 11/22/18 [History] Bisacodyl [Woman's Laxative] 5 mg PO QPM 11/22/18 [History] Budesonide/Formoterol 80/4.5 [Symbicort 80/4.5] 2 puff PO BID 11/22/18 [History] Bumetanide 0.5 mg PO DAILY 11/22/18 [History] Clopidogrel [Plavix] 75 mg PO DAILY 11/22/18 [History] Digoxin [Lanoxin] 0.25 mg PO QAM 11/22/18 [History] Diltiazem HCl [Tiazac] 180 mg PO DAILY 11/22/18 [History] Docusate Sodium [Dulcolax Stool Softener] 100 mg PO DAILY 11/22/18 [History] Ergocalciferol (VITAMIN D2) [Vitamin D2] 50,000 units PO MO 11/22/18 [History] Ferrous Sulfate 325 mg PO DAILY 11/22/18 [History] Fluticasone Propionate Nasal [Flonase] 50 mcg NS BID 11/22/18 [History] Furosemide [Lasix] 40 mg PO DAILY 11/22/18 [History] Gabapentin [Neurontin] 800 mg PO BID 11/22/18 [History] Insulin NPH Hum/Reg Insulin Hm [Novolin 70-30 Flexpen] 25 units SQ BID 11/22/18 [History] Levothyroxine Sodium [Tirosint] 100 mcg PO QAM 11/22/18 [History] Meloxicam [Mobic] 15 mg PO DAILY 11/22/18 [History] Montelukast [Singulair] 10 mg PO QPM 11/22/18 [History] Omeprazole [PriLOSEC] 40 mg PO DAILY 11/22/18 [History] Potassium Chloride [Klor-Con 10] 10 meq PO DAILY 11/22/18 [History] Tiotropium [Spiriva] 18 mcg IH DAILY 11/22/18 [History] guaiFENesin [Mucus Relief ER] 600 mg PO Q12H PRN 11/22/18 [History] raNITIdine HCl [Zantac] 150 mg PO BID 11/22/18 [History] Allergies/Adverse Reactions: Allergy/AdvReac Type Severity Reaction Status Date / Time No Known Allergies Allergy Verified 11/22/18 11:07 Date of admission: 11/23/18 15:22 Primary care physician: Yolette Fabian Consults: 11/22/18 13:54 Consult to Physician [CONS] Routine Consulting Provider: Sukhwinder Gonzalez Reason for Consult: Tracheobronchial fistula, 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 pt lives home alone 11/22/18 17:28 Consult to Oncology [CONS] Routine Consulting Provider: [facility] Reason for Consult: Esophageal mass Call Completed: Yes 11/23/18 09:24 Consult to Oncology Radiation [CONS] Routine Consulting Provider: Oncology [facility] [place] Reason for Consult: esophageal cancer Call Completed: Yes 11/24/18 09:56 Consult to Palliative Care [CONS] Routine Comment: Consulting Provider: Palliative Care [facility] Reason for Consult: goals of care Call Completed: Yes 11/26/18 08:44 Consult to Nurse Navigator [CONS] Routine Comment: copd 11/26/18 09:21 Consult to Occupational Therapy [CONS] Routine Comment: Evaluate, develop and implement POC Reason for Consult: discharge planning Does patient have active BEDREST order?: No Is patient medically & hemodynamically stable?: Yes Patient assessed for mobility or mobilized this visit?: Yes Consult to Physical Therapy [CONS] Routine Comment: Evaluate, develop and implement POC Reason for Consult: dicharge planning Does patient have active BEDREST order?: No Is patient medically & hemodynamically stable?: Yes Patient assessed for mobility or mobilized this visit?: Yes - Constitutional Vitals: Temp Pulse Resp BP Pulse Ox 98.1 F 65 16 145/74 95 11/27/18 08:35 11/27/18 08:35 11/27/18 10:07 11/27/18 08:35 11/27/18 10:07 General appearance: Present: A&O X 3, pleasant, no acute distress - Discharge Instructions Follow Up With: Yolette Fabian CNP [Primary Care Provider] - Forms: Work/School Release
[2018-11-27 11:59] VITALS: BP 134/73
[2018-11-27] MEDS: Fluticasone Propionate Nasal 50 MCG/SPRAY BOTTLE NS SCH (12:16)
--- NOTE | 2018-11-27 13:30 | Discharge Summary ---
<Alex Jang F - Last Filed: 11/27/18 14:41> - NOTES TO OUTPATIENT PROVIDER Notes to Outpatient Provider: Patient was admitted for squamous cell carcinoma of the trachea. Not amenable to surgical resection. Patient elected for palliative radiation therapy to help with symptoms and to reduce size of the mass. Patient also elected to be DNR-CCA. Please follow up with patient's radiation therapy, first appointment will take place on Monday with 5 doses total. Follow up for potential feeding tube placement if radiation makes it more difficult for patient to eat by mouth or if patient becomes unable to tolerate PO intake. 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 transplanted heart: [place] heart Associated angina: without angina Qualified Code(s): I25.10 - Atherosclerotic heart disease of [place] coronary artery without angina pectoris (6) Hyperlipidemia Priority: Secondary Status: Chronic Qualifiers: Hyperlipidemia type: unspecified Qualified Code(s): E78.5 - Hyperlipidemia, unspecified (7) Paroxysmal atrial fibrillation Priority: Secondary Status: Chronic (8) Acute exacerbation of chronic obstructive airways disease Priority: Secondary Status: Acute (9) Moderate protein malnutrition Priority: Secondary Status: Acute Hospital course: Ms. Celaya is a 73 y/o female with past medical history of COPD, Afib, HF, hypothyroid, HTN, and DM presents for dysphagia of "years. Pt poor historian, daughter in room to assist. Reports gradual dysphagia and one episode of choking on a chicken bone-esophageal mass/lesion was noticed upon retrieval. Daughter reports reports nausea and vomiting and occasional hemoptysis leading to further evaluation via EGD. 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 Chart review shows history of dyspnea and bronchitis. Former smoker, does not wear O2 at home. Pt uses walker to ambulate at home. Vitals noted T:100F, HR:86 and regular, RR:24, BP:131/73, SpO2:97%. Pt on 2.5L at time of interview. Pt endorses trouble swallowing, denies chest pain, shortness of breath at this time. Denies hematemesis, melena, hematochezia. Hemoptysis evident, likely from EBUS. In the hospital, pathology from biopsy showed squamous cell carcinoma, possibly a recurrence from malignancy in 2010. Started on zosyn for aspiration risk, transitioned to Levaquin after sputum culture grew corynebacterium striatum. CT surgery did not believe it was amenable to resection or stenting. Rad/oncology was consulted and they recommended palliative radiation for reducing the size of the mass. A goals of care discussion was conducted with the patient, Dr. Emanuel, and the patients family at bedside. The patient chose to pursue radiation therapy with potentially placement of a feeding tube, should the need for it arise. Dr. Lama, the radiation oncologist stated that a feeding tube can be placed outpatient should the patient develop difficulty eating after radiation therapy. Patient was explained to in detail the choices for further symptomatic treatment with radiation versus no treatment and comfort care only. The patient had CT mapping on 11/26 and will start radiation therapy on 11/28. Patient is to be discharged with close primary care and oncology follow up. Per swallow evaluation, patient is to have advanced soft texture foods with thin liquids. She is in stable condition. Return precautions were provided. Discharge discussed with: patient, family Time spent discussing smoking cessation with patient: 3 to 10 minutes - Time Spent with Patient Total time spent providing and/or coordinating discharge services: Time spent: Less than 30 minutes - Discharge Medications Prescriptions: New levoFLOXacin [Levaquin] 750 mg PO DAILY 5 Days #5 tablet Continued Fluticasone Propionate Nasal [Flonase] 50 mcg NS BID Albuterol Sulfate [Ventolin Hfa] 2 puff PO Q6H PRN PRN Reason: Shortness Of Breath Furosemide [Lasix] 40 mg PO DAILY guaiFENesin [Mucus Relief ER] 600 mg PO Q12H PRN PRN Reason: Congestion Ergocalciferol (VITAMIN D2) [Vitamin D2] 50,000 units PO MO Budesonide/Formoterol 80/4.5 [Symbicort 80/4.5] 2 puff PO BID Tiotropium [Spiriva] 18 mcg IH DAILY raNITIdine HCl [Zantac] 150 mg PO BID Potassium Chloride [Klor-Con 10] 10 meq PO DAILY Omeprazole [PriLOSEC] 40 mg PO DAILY Montelukast [Singulair] 10 mg PO QPM Meloxicam [Mobic] 15 mg PO DAILY Insulin NPH Hum/Reg Insulin Hm [Novolin 70-30 Flexpen] 25 units SQ BID Levothyroxine Sodium [Tirosint] 100 mcg PO QAM Gabapentin [Neurontin] 800 mg PO BID Ferrous Sulfate 325 mg PO DAILY Docusate Sodium [Dulcolax Stool Softener] 100 mg PO DAILY Digoxin [Lanoxin] 0.25 mg PO QAM Clopidogrel [Plavix] 75 mg PO DAILY Bumetanide 0.5 mg PO DAILY Bisacodyl [Woman's Laxative] 5 mg PO QPM Atorvastatin [Lipitor] 40 mg PO QPM Atenolol [Tenormin] 50 mg PO BID Aspirin [Lo-Dose Aspirin EC] 81 mg PO DAILY Albuterol Neb [Proventil Neb] 2.5 mg IH TID PRN PRN Reason: Shortness Of Breath Diltiazem HCl [Tiazac] 180 mg PO DAILY Home Medications: Albuterol Neb [Proventil Neb] 2.5 mg IH TID PRN 11/22/18 [History] Albuterol Sulfate [Ventolin Hfa] 2 puff PO Q6H PRN 11/22/18 [History] Aspirin [Lo-Dose Aspirin EC] 81 mg PO DAILY 11/22/18 [History] Atenolol [Tenormin] 50 mg PO BID 11/22/18 [History] Atorvastatin [Lipitor] 40 mg PO QPM 11/22/18 [History] Bisacodyl [Woman's Laxative] 5 mg PO QPM 11/22/18 [History] Budesonide/Formoterol 80/4.5 [Symbicort 80/4.5] 2 puff PO BID 11/22/18 [History] Bumetanide 0.5 mg PO DAILY 11/22/18 [History] Clopidogrel [Plavix] 75 mg PO DAILY 11/22/18 [History] Digoxin [Lanoxin] 0.25 mg PO QAM 11/22/18 [History] Diltiazem HCl [Tiazac] 180 mg PO DAILY 11/22/18 [History] Docusate Sodium [Dulcolax Stool Softener] 100 mg PO DAILY 11/22/18 [History] Ergocalciferol (VITAMIN D2) [Vitamin D2] 50,000 units PO MO 11/22/18 [History] Ferrous Sulfate 325 mg PO DAILY 11/22/18 [History] Fluticasone Propionate Nasal [Flonase] 50 mcg NS BID 11/22/18 [History] Furosemide [Lasix] 40 mg PO DAILY 11/22/18 [History] Gabapentin [Neurontin] 800 mg PO BID 11/22/18 [History] Insulin NPH Hum/Reg Insulin Hm [Novolin 70-30 Flexpen] 25 units SQ BID 11/22/18 [History] Levothyroxine Sodium [Tirosint] 100 mcg PO QAM 11/22/18 [History] Meloxicam [Mobic] 15 mg PO DAILY 11/22/18 [History] Montelukast [Singulair] 10 mg PO QPM 11/22/18 [History] Omeprazole [PriLOSEC] 40 mg PO DAILY 11/22/18 [History] Potassium Chloride [Klor-Con 10] 10 meq PO DAILY 11/22/18 [History] Tiotropium [Spiriva] 18 mcg IH DAILY 11/22/18 [History] guaiFENesin [Mucus Relief ER] 600 mg PO Q12H PRN 11/22/18 [History] raNITIdine HCl [Zantac] 150 mg PO BID 11/22/18 [History] levoFLOXacin [Levaquin] 750 mg PO DAILY 5 Days #5 tablet 11/27/18 [Rx] Allergies/Adverse Reactions: Allergy/AdvReac Type Severity Reaction Status Date / Time No Known Allergies Allergy Verified 11/22/18 11:07 Date of admission: 11/23/18 15:22 Primary care physician: Yolette Fabian Consults: 11/22/18 13:54 Consult to Physician [CONS] Routine Consulting Provider: Sukhwinder Gonzalez Reason for Consult: Tracheobronchial fistula, 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 pt lives home alone 11/22/18 17:28 Consult to Oncology [CONS] Routine Consulting Provider: [facility] Reason for Consult: Esophageal mass Call Completed: Yes 11/23/18 09:24 Consult to Oncology Radiation [CONS] Routine Consulting Provider: [facility] Reason for Consult: esophageal cancer Call Completed: Yes 11/24/18 09:56 Consult to Palliative Care [CONS] Routine Comment: Consulting Provider: [facility] [place] Reason for Consult: goals of care Call Completed: Yes 11/26/18 08:44 Consult to Nurse Navigator [CONS] Routine Comment: copd 11/26/18 09:21 Consult to Occupational Therapy [CONS] Routine Comment: Evaluate, develop and implement POC Reason for Consult: discharge planning Does patient have active BEDREST order?: No Is patient medically & hemodynamically stable?: Yes Patient assessed for mobility or mobilized this visit?: Yes Consult to Physical Therapy [CONS] Routine Comment: Evaluate, develop and implement POC Reason for Consult: dicharge planning Does patient have active BEDREST order?: No Is patient medically & hemodynamically stable?: Yes Patient assessed for mobility or mobilized this visit?: Yes Discharging clinician: Luis Enrique Tomas Anticipated date of discharge: 11/27/18 - Constitutional Vitals: Temp Pulse Resp BP Pulse Ox 97.6 F 93 18 134/73 94 11/27/18 11:58 11/27/18 11:58 11/27/18 11:58 11/27/18 11:58 11/27/18 11:58 General appearance: Present: A&O X 3, pleasant, no acute distress Exam: GEN: Well-appearing, NAD, conversant. HEAD: Normocephalic, atraumatic. EYES: PERRL, EOMI, anicteric. ENT: MMM. oropharynx without erythema or drainage. NECK: Supple. No LAD. No stiffness or restricted ROM. No tracheal deviation. HEART: Regular rate and regular rhythm, normal S1/S2, no m/r/g. LUNGS: Good air exchange bilaterally. Upper airway congestion, hoarse voice. ABDO: Soft, nontender, nondistended with active bowel sounds. : No suprapubic tenderness or CVA tenderness. BACK: No obvious stepoffs or deformities. EXT: Without cyanosis, clubbing or edema. SKIN: Warm and dry without any rash. NEURO: Grossly nonfocal. Alert and oriented, moving all 4 extremities. CN not formally tested but appear grossly intact. PSYCH: Normal affect, no depressed or anxious mood. - Patient Status Disposition: Home, Self-Care Condition: Fair Functional capacity at discharge: uses cane/walker Overall status at discharge: patient is progressing back to baseline - Discharge Instructions Follow Up With: Yolette Fabian CNP [Primary Care Provider] - 12/04/18 10:45 am (Please follow up as schedule...) Reji Lama MD [Partnered Physician] - Forms: Work/School Release Additional Instructions: You have been admitted to the hospital for evaluation of a mass that was found to be squamous cell carcinoma. At home, please eat a diet consisting of soft solids, such as ground meat and thin liquids due to the mass that is partially blocking your throat. Please continue taking levofloxacin by mouth 750 mg every day for 5 days for treatment of lung infection. Please continue taking the rest of your home medications as prescribed. Please follow up with your primary care provider in the next 1-2 weeks to discuss your hospitalization and for further management and evaluation. Please follow up at your next radiation therapy appointment to help reduce the size of the mass starting 11/28/2018. Please return to the emergency department if you experience worsening of your symptoms, such as chest pain, throat pain, difficulty breathing, difficulty eating, nausea, vomiting, fevers, or chills. - Diet and Activity Activity: ambulate only with your walker, increase activity as tolerated Diet: other (Soft solids, thin liquids) <Luis Enrique Tomas - Last Filed: 11/27/18 22:30> Orders not resulted at time of discharge: Pending orders 11/22/18 12:11 Surgical Pathology [PTH] Routine Date of Encounter: 11/27/18 - Discharge Diagnosis (1) Squamous cell carcinoma Status: Acute (2) Dysphagia Status: Acute Qualifiers: Dysphagia type: unspecified Qualified Code(s): R13.10 - Dysphagia, unspecified (3) Acute exacerbation of chronic obstructive airways disease Status: Acute (4) Hypertension Status: Chronic Qualifiers: Hypertension type: essential hypertension Qualified Code(s): I10 - Essenti al (primary) hypertension (5) Paroxysmal atrial fibrillation Status: Chronic (6) Type II diabetes mellitus Status: Chronic Qualifiers: Diabetes mellitus senior living insulin use: with senior living use Diabetes mellitus complication status: without complication Qualified Code(s): E11.9 - Type 2 diabetes mellitus without complications; Z79.4 - skilled nursing (current) use of insulin (7) CAD (coronary artery disease) Status: Chronic Qualifiers: Coronary Disease-Associated Artery/Lesion type: [place] artery [place] vs. transplanted heart: [place] heart Associated angina: without angina Qualified Code(s): I25.10 - Atherosclerotic heart disease of [place] coronary artery without angina pectoris (8) Diastolic CHF Status: Chronic (9) History of CVA with residual deficit Status: Chronic Hospital course: Ms. 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 pt lives home alone 11/22/18 17:28 Consult to Oncology [CONS] Routine Consulting Provider: [facility] [place] Reason for Consult: Esophageal mass Call Completed: Yes 11/23/18 09:24 Consult to Oncology Radiation [CONS] Routine Consulting Provider: [facility] Reason for Consult: esophageal cancer Call Completed: Yes 11/24/18 09:56 Consult to Palliative Care [CONS] Routine Comment: Consulting Provider: Palliative [facility] [place] Reason for Consult: goals of care Call Completed: Yes 11/26/18 08:44 Consult to Nurse Navigator [CONS] Routine Comment: copd 11/26/18 09:21 Consult to Occupational Therapy [CONS] Routine Comment: Evaluate, develop and implement POC Reason for Consult: discharge planning Does patient have active BEDREST order?: No Is patient medically & hemodynamically stable?: Yes Patient assessed for mobility or mobilized this visit?: Yes Consult to Physical Therapy [CONS] Routine Comment: Evaluate, develop and implement POC Reason for Consult: dicharge planning Does patient have active BEDREST order?: No Is patient medically & hemodynamically stable?: Yes Patient assessed for mobility or mobilized this visit?: Yes - Constitutional Vitals: Temp Pulse Resp BP Pulse Ox 97.6 F 93 18 134/73 94 11/27/18 11:58 11/27/18 11:58 11/27/18 11:58 11/27/18 11:58 11/27/18 11:58 - Attending Attestation I examined this patient and my medical decision-making was reviewed with the resident physician. I agree with the documented findings, disposition and treatment plan as described except to the extent set forth below. 73 year old female presented with dysphasia. She had EGD and bronchoscopy. Findings of bronchoscopy showing a tracheal mass and biopsy returned positive for squamous cell carcinoma, likely stage IV. She was noted to be short of breath on admission. She was treated for COPD exacerbation and improved. Palliative services was consulted and patient code status was changed to DNR CCA/DNI. Radiation Oncology was consulted and patient elected for palliative radiation therapy. PT/OT recommended SNF on discharge but patient declined. Bronchoscopy cultures were positive for Corynebacterium striatum. She was started on Levaquin. She was afebrile with no leukocytosis and without sputum on discharge.
--- NOTE | 2018-11-27 14:35 | Physician Discharge Referral ---
Home Health/Hosp Referral Info Transfer to: Home Health Attending Provider: Dr. Julienne Tomas Provider in Charge Post Discharge: PCP - Diagnosis (1) Squamous cell carcinoma Priority: Primary Status: Acute (2) Dysphagia Priority: Secondary Status: Acute (3) Diabetes Priority: Secondary Status: Chronic (4) Hypertension Priority: Secondary Status: Chronic (5) CAD (coronary artery disease) Priority: Secondary Status: Chronic (6) Hyperlipidemia Priority: Secondary Status: Chronic (7) Paroxysmal atrial fibrillation Priority: Secondary Status: Chronic (8) Acute exacerbation of chronic obstructive airways disease Priority: Secondary Status: Acute (9) Diastolic CHF Priority: Secondary Status: Chronic (10) Moderate protein malnutrition Priority: Secondary Status: Acute - Respiratory Orders Smoking Cessation: Smoking cessation has been advised. For more information, call the [employer] Quit Line at 5-241-RVGO-NOW. - Diet/Nutrition Diet/Nutrition Orders: Mechanical Soft (advanced soft diet, thin liquids) - Activity Activity Orders: Up ad jerel, Walker - Services Needed Following services are medically necessary services: Nursing, Home Health Aide, Physical Therapy, Occupational Therapy, Med Social Work, Speech Therapy - Transfer Medications Home Medications: Albuterol Neb [Proventil Neb] 2.5 mg IH TID PRN 11/22/18 [History] Albuterol Sulfate [Ventolin Hfa] 2 puff PO Q6H PRN 11/22/18 [History] Aspirin [Lo-Dose Aspirin EC] 81 mg PO DAILY 11/22/18 [History] Atenolol [Tenormin] 50 mg PO BID 11/22/18 [History] Atorvastatin [Lipitor] 40 mg PO QPM 11/22/18 [History] Bisacodyl [Woman's Laxative] 5 mg PO QPM 11/22/18 [History] Budesonide/Formoterol 80/4.5 [Symbicort 80/4.5] 2 puff PO BID 11/22/18 [History] Bumetanide 0.5 mg PO DAILY 11/22/18 [History] Clopidogrel [Plavix] 75 mg PO DAILY 11/22/18 [History] Digoxin [Lanoxin] 0.25 mg PO QAM 11/22/18 [History] Diltiazem HCl [Tiazac] 180 mg PO DAILY 11/22/18 [History] Docusate Sodium [Dulcolax Stool Softener] 100 mg PO DAILY 11/22/18 [History] Ergocalciferol (VITAMIN D2) [Vitamin D2] 50,000 units PO MO 11/22/18 [History] Ferrous Sulfate 325 mg PO DAILY 11/22/18 [History] Fluticasone Propionate Nasal [Flonase] 50 mcg NS BID 11/22/18 [History] Furosemide [Lasix] 40 mg PO DAILY 11/22/18 [History] Gabapentin [Neurontin] 800 mg PO BID 11/22/18 [History] Insulin NPH Hum/Reg Insulin Hm [Novolin 70-30 Flexpen] 25 units SQ BID 11/22/18 [History] Levothyroxine Sodium [Tirosint] 100 mcg PO QAM 11/22/18 [History] Meloxicam [Mobic] 15 mg PO DAILY 11/22/18 [History] Montelukast [Singulair] 10 mg PO QPM 11/22/18 [History] Omeprazole [PriLOSEC] 40 mg PO DAILY 11/22/18 [History] Potassium Chloride [Klor-Con 10] 10 meq PO DAILY 11/22/18 [History] Tiotropium [Spiriva] 18 mcg IH DAILY 11/22/18 [History] guaiFENesin [Mucus Relief ER] 600 mg PO Q12H PRN 11/22/18 [History] raNITIdine HCl [Zantac] 150 mg PO BID 11/22/18 [History] levoFLOXacin [Levaquin] 750 mg PO DAILY 5 Days #5 tablet 11/27/18 [Rx] Allergies/Adverse Reactions: Allergy/AdvReac Type Severity Reaction Status Date / Time No Known Allergies Allergy Verified 11/22/18 11:07 Certification: Further, I certify that my clinical findings support that this patient is homebound (i.e. absences from home require considerable and taxing effort and are for medical reasons or congregation services or infrequently or short duration when for other reasons) because: Homebound Reason: Patient requires assistance of a person or device to safely leave home, Post-surgery restriction and or conditions limit ability to leave home Attestation: My signature below is to certify that this patient is under my care and that I, or nurse practitioner, or a physician's home health assistant working with me, has a [id number] encounter with this patient.
== END 2018-11-27 16:45 | disposition home or self-care (01) | DRG 240 ==
LOC: 2ANU 10:12 → SAMDAY 10:12 → SUATTDRO 13:45
PROVIDERS: ADMIT Internal Medicine; ATTEND Student in an Organized Health Care Education/Training Program
PROC: ENDOEBX (2018-11-22 11:35)
PROC: ENDOBRF (2018-11-22 11:35)